=== PATIENT | male | born 1940 | race Caucasian/White ===

== ENCOUNTER 2023-12-23 13:05 | Inpatient (IN) | payer MEDICARE, SELFPAY ==
[2023-12-23] VITALS (26 sets, daily range): BP systolic 130–167; BP diastolic 65–99; PULSE 62–80; RESP 13–20; TEMP 36.3–37.1; O2SAT 96–100; BMI 25.9; BMI 27.2
--- NOTE | 2023-12-23 13:06 | CT_ITS ---
STUDY: CT HEAD STROKE PROTOCOL W/O CONTRAST INJECTION REASON FOR EXAM: Male, 83 years old. Neuro deficit, acute, stroke suspected RADIATION DOSAGE (If Supplied By Facility): CTDIvol = ( 44.99 ) mGy, DLP = ( 897.35 ) mGycm TECHNIQUE: Transaxial CT imaging of the brain was performed without administration of intravenous contrast material. Individualized dose optimization techniques were used for this CT. COMPARISON: No relevant priors. FINDINGS: Normal soft tissue structures. Normal calvarium. There is mild cerebral atrophy with widening of the extra-axial spaces and ventricular dilatation. There are areas of decreased attenuation within the white matter tracts of the supratentorial brain, consistent with microvascular disease changes. Findings suggestive for an old lacunar infarct in the right thalamus. Normal brainstem. There is evidence of encephalomalacia in the posterior left cerebellar hemisphere. There is also evidence of a encephalomalacia in the posterior right parietal occipital lobes. There is no intracranial hemorrhage. There are no findings of an acute ischemic infarction. Atherosclerotic calcific plaques of the vertebral arteries and cavernous portions of the internal carotid arteries laterally. Normal visualized paranasal sinuses. ASPECT score: 10 CT/STROKE Brain/Head without Cont IMPRESSION: Chronic involutional changes of the brain. 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 N.B. : The above Results were Read Back by Anjel Sands MD to Gerhard Dao and understanding confirmed on 12/23/2023 13:21:48 (ET). Electronically Signed: Anjel Sands MD at 13:22 EST ,
--- NOTE | 2023-12-23 13:06 | RAD_ITS ---
STUDY: X-RAY CHEST REASON FOR EXAM: Male, 83 years old. Neuro deficit, acute, stroke suspected TECHNIQUE: Single AP portable view of the chest. COMPARISON: None. FINDINGS: EKG electrodes are seen. There is evidence of gynecomastia. Small calcified granuloma in the left lower lobe. There is no demonstrated pleural abnormality. Normal size heart. Normal mediastinum and jadyn. Normal visualized pulmonary arteries. There is atherosclerotic tortuosity of the aortic arch and descending thoracic aorta. There are diffuse degenerative changes of the visualized thoracic spine. Mild levoscoliosis. There is degenerative osteoarthritis of the bilateral shoulders. There is no demonstrated abnormality of the visualized soft tissue structures of the upper abdomen. RAD/Chest 1 View IMPRESSION: No acute abnormality is seen. Electronically Signed: Anjel Sands MD at 13:56 EST ,
--- NOTE | 2023-12-23 13:07 | CT_ITS ---
We are attempting to reach an attending provider to discuss findings. An addendum with communication details will be sent when the communication is complete. STUDY: CTA HEAD AND NECK WITH CONTRAST REASON FOR EXAM: Male, 83 years old. Neuro deficit, acute, stroke suspected RADIATION DOSAGE (If Supplied By Facility): CTDIvol = ( 25.73 ) mGy, DLP = ( 736.46 ) mGycm TECHNIQUE: CT angiography was performed with a multi-detector CT scanner. Data acquisition was obtained from the skull base through the vertex following intravenous administration of IV 100mL [id number]-[id number]. MIP images were reconstructed from the axial data set. Post-processing of the angiographic images was performed, with multiplanar reformation and 3D reconstruction. Individualized dose optimization techniques were used for this CT. COMPARISON: No relevant priors. FINDINGS: Normal bilateral petrous carotid arteries. There is calcified plaque formation of the right cavernous carotid artery, without a cross-sectional luminal stenosis. There is calcified plaque formation of the left cavernous carotid artery, with a mild stenosis (less than 50%). Normal right A1 segments of the anterior cerebral artery. Normal left A1 segments of the anterior cerebral artery. Normal intact anterior communicating artery (ACOM). Normal bilateral A2 segments of the anterior cerebral arteries. Normal right M1 and M2 segments of the middle cerebral arteries, with a normal M1 bifurcation. Normal left M1 and M2 segments of the middle cerebral arteries, with a normal M1 bifurcation. Normal right posterior communicating artery (PCOM). Normal left posterior communicating artery (PCOM). Normal bilateral vertebral arteries. Normal basilar artery with a normal basilar bifurcation. The visualized bilateral superior cerebellar (SCA) arteries are normal. Normal bilateral P1, P2 and visualized P3 segments of the posterior cerebral arteries. There is no demonstrated aneurysm of the [id number]. AORTIC ARCH: There is atherosclerotic calcific plaque formation of the aortic arch and great vessels arising from the aortic arch, without a hemodynamically significant stenosis. There is a normal origin of the brachiocephalic, left common carotid, and left subclavian arteries. Mild heterogeneity of the right lobe of the thyroid. RIGHT CAROTID ARTERIES: Normal right common carotid artery (CCA). Normal right common carotid bulb. There is severe atherosclerotic plaque formation of the origin of the right internal carotid artery with a near complete occlusion. Normal visualized cervical portion of the right internal carotid artery. Normal origin of the right external carotid artery (ECA). LEFT CAROTID ARTERIES: Normal left common carotid artery (CCA). Normal left common carotid bulb. There is mild atherosclerotic plaque formation of the origin of the left internal carotid artery with less than 50% cross sectional diameter stenosis. Normal visualized cervical portion of the left internal carotid artery. Normal origin of the left external carotid artery (ECA). VERTEBRAL ARTERIES: Normal bilateral vertebral arteries. CT/STROKE CTA Head AND Neck W/Con IMPRESSION: High-grade stenosis at the origin of the right internal carotid artery. Electronically Signed: Anjel Sands MD at 13:39 EST ,
--- NOTE | 2023-12-23 13:10 | ED.VIS.STROK ---
HPI History of Present Illness Chief Complaint: Neuro S/Sx Detail of Chief Complaint: Abrupt onset of left-sided paralysis with onset 1220 Informant: patient Onset/Context/Timing Onset: Today and Hours Context: Sudden Onset Timing: Continuous Quality and Location: Positive for Left Facial Droop, Left Arm Parasthesia, Left Leg Parasthesia, Left Arm Weakness, Left Leg Weakness and Expressive Aphasia Maximum Severity: Severe Worsened by: Not applicable Relieved by: Nothing Associated Symptoms Associated Symptoms: Negative for Headache, Nausea, Vomiting or Chest Pain Narrative Narrative: Patient is an 83-year-old male with history of hypertension, hypothyroidism, hypercholesterolemia and 1 or 2 prior strokes. There are no old images for comparison. Patient arrived by ambulance was met in the ambulance bay. He has no use of his left upper extremity minimal use of his left lower extremity. His altered sensation left side. There is slight facial droop. He has trouble with fluency of speech. He believed it was November. Prior similar symptoms: Yes Recent Illness/Hospitalization: No PFSH PFSH Home Medications acetaminophen 500 mg capsule 500 mg PO BID 12/23/23 [History Last Taken Unknown] aspirin 81 mg chewable tablet 1 tab PO DAILY 12/23/23 [History Last Taken Unknown] atorvastatin 80 mg tablet 80 mg PO QHS 12/23/23 [History Last Taken Unknown] citalopram 40 mg tablet (Celexa) 20 mg PO DAILY 12/23/23 [History Last Taken Unknown] clopidogrel 75 mg tablet 75 mg PO DAILY 12/23/23 [History Last Taken Unknown] docusate sodium 100 mg capsule (Colace) 100 mg PO BID 12/23/23 [History Last Taken Unknown] levothyroxine 50 mcg tablet 50 mcg PO DAILY 12/23/23 [History Last Taken Unknown] losartan 50 mg tablet 50 mg PO DAILY 12/23/23 [History Last Taken Unknown] multivitamin 1 tab PO DAILY 12/23/23 [History Last Taken Unknown] nifedipine 60 mg tablet,extended release 24 hr 60 mg PO DAILY 12/23/23 [History Last Taken Unknown] vit C 250 mg-vit E 90 mg-zinc 40 mg-copper 1 [id number] capsule (PreserVision AREDS-2) 1 tab PO BID 12/23/23 [History Last Taken Unknown] Social History (Updated 12/23/23 @ 13:[address] Gerhard Dao MD) household members: family Smoking Status: Never smoker ROS ROS ED Eyes Eyes: Denies blurry vision, change in vision or diplopia ENT ENT ED: Denies ear pain, rhinorrhea or sore throat Cardiovascular Cardiovascular: Denies chest pain or palpitations Respiratory/Chest Respiratory/Chest: Denies cough, dyspnea or dyspnea on exertion Musculoskeletal Musculoskeletal: Denies arthralgias, back pain, myalgias or neck pain Neurologic Neurologic: Reports paresthesias and weakness EXAM Physical Exam Const Vital Signs: 12/23/23 13:06 12/23/23 13:20 12/23/23 13:20 Temperature 97.6 F L Temperature Source Temporal Pulse Rate 78 73 Respiratory Rate 16 16 Blood Pressure 133/73 H 155/72 H Blood Pressure Mean 93 99 Blood Pressure Source Blood Pressure Position Blood Pressure Location Pulse Ox 98 98 Oxygen Delivery Method Room Air Room Air Room Air 12/23/23 13:24 12/23/23 13:29 12/23/23 13:33 Temperature 97.8 F 97.8 F Temperature Source Temporal Temporal Pulse Rate 77 71 Respiratory Rate 16 18 Blood Pressure 155/72 H 155/72 H 139/69 H Blood Pressure Mean 99 92 Blood Pressure Source Monitor Monitor Blood Pressure Position Semi-Fowlers Supine Blood Pressure Location Left Arm Left Arm Pulse Ox 97 99 Oxygen Delivery Method Room Air Room Air 12/23/23 13:48 12/23/23 13:59 12/23/23 14:03 Temperature 97.8 F 97.8 F 98.4 F Temperature Source Temporal Temporal Temporal Pulse Rate 69 64 70 Respiratory Rate 16 14 16 Blood Pressure 149/81 H 149/81 H 160/76 H Blood Pressure Mean 103 103 104 Blood Pressure Source Monitor Monitor Monitor Blood Pressure Position Semi-Fowlers Semi-Fowlers Semi-Fowlers Blood Pressure Location Left Arm Left Arm Left Arm Pulse Ox 99 98 97 Oxygen Delivery Method Room Air Room Air Room Air Positive well nourished and well developed General Appearance ED: well developed HEENT Reports moist mucous membranes atraumatic Eyes PERRL and EOMs intact bilaterally General Eye ED: Negative for pale conjunctiva or scleral icterus Neck no lymphadenopathy, supple and no JVD Chest Wall inspection of chest normal and palpation of chest normal Resp normal respiratory effort and clear to auscultation bilaterally Cardio no murmurs Rate: regular rate Rhythm: regular rhythm Heart Sounds: S1 normal and S2 normal GI normal to inspection, nondistended, normoactive bowel sounds, soft to palpation, non-tender, non-distended and no masses Back/Spine no CVA tenderness Extremity normal to inspection Neuro oriented x3, No CN's II-XII intact bilaterally and No no sensory deficits noted [place] Coma Scale: document GCS findings Spontaneous Obeys Commands Oriented 15 Sensorium / Orientation: alert Psych mental status grossly normal Skin no wounds Lesions: no lesions Rashes: no rashes NIHSS NIHSS Initial: 1a Level of Consciousness: 0 1b LOC Questions (Score 2 if aphasic/stupor): 1 1c LOC Commands (Only score 1st attempt): 0 2 Best Gaze (If aphasic, use reflexive mvmts.): 0 3 Visual: 0 4 Facial Palsy: 1 5 Motor Arm Right (UN = amputation/fusion): 0 5 Motor Arm Left: 4 6 Motor Leg Right: 0 6 Motor Leg Left: 2 7 Limb ataxia (Only + if out of proportion): 0 8 Sensory (Aphasia/stupor=0 or 1, coma=2): 1 9 Best Language: 1 10 Dysarthria (mute, coma=2, intubated=UN): 1 11 Extinction and Inattention (only scored if +): 0 Total Score: 11 MDM MDM MDM Narrative Medical decision making narrative: Patient is a thrombolytic candidate. Patient was examined in the EMS bay and radiology suite. Spoke with pharmacist regarding TNK administration. He was informed of weight since was not in the computer. Patient and brother were informed of his findings. He was informed there is medicine that could potentially dissolve the clot that is causing his deficit. He asked to be given it immediately. He was explained risk benefits. History & Record Review Discussion w/independent historian: EMS personnel, Patient and Family Lab Data Attestation: I reviewed the patient's lab results. Lab results narrative: White count is slightly elevated which is probably a stress response due to his stroke. Coags are normal. Labs: Laboratory Results - last 24 hr 12/23/23 13:10 WBC 11.8 H RBC 4.09 L Hgb 12.3 L Hct 38.6 L MCV 94.4 H MCH 30.1 MCHC 31.9 L RDW Std Deviation 42.7 RDW Coeff of Velia 12.3 Plt Count 195 MPV 8.2 Immature Gran % (Auto) 0.400 Neut % (Auto) 64.6 Lymph % (Auto) 19.6 Gulf % (Auto) 6.5 Eos % (Auto) 8.4 H Baso % (Auto) 0.5 Absolute Neuts (auto) 7.6 Absolute Lymphs (auto) 2.30 Nucleated RBC % 0 PT 13.0 INR 1.0 APTT 21.6 L Sodium 137 Potassium 4.6 Chloride 110 H Carbon Dioxide 26.0 Anion Gap 1 L BUN 19 H Creatinine 1.57 H Estim Creat Clear Calc 39.30 Est GFR (MDRD) Af Amer 55 L Est GFR (MDRD) Non-Af 45 L BUN/Creatinine Ratio 12.1 Glucose 159 H Calcium 9.4 Troponin I High Sens 13 Radiography Chest X-Ray - ED: 1 View and Read by ED Physician (Independently reviewed interpreted by me as negative for any acute process. Patient has minor normal chronic lung parenchymal changes. Cardiac silhouette size normal. Perihilar region normal. Osseous structures are normal.) Diagnostic Testing: Clinical Impression(s) from Imaging Studies Brain CT 12/23/23 13:06 IMPRESSION: Chronic involutional changes of the brain. 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 N.B. : The above Results were Read Back by Anjel Sands MD to [facility] and understanding confirmed on 12/23/2023 13:21:48 (ET). Electronically Signed: Anjel Sands MD at 13:22 EST , ADDENDUM: 12/23/23 1329 IMPRESSION: Chronic involutional changes of the brain. 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 N.B. : The above Results were Read Back by Anjel Sands MD to [facility] and understanding confirmed on 12/23/2023 13:21:48 (ET). Electronically Signed: Anjel Sands MD at 13:22 EST , Chest X-Ray 12/23/23 13:06 IMPRESSION: No acute abnormality is seen. Electronically Signed: Anjel Sands MD at 13:56 EST , Head/Neck CTA 12/23/23 13:07 IMPRESSION: High-grade stenosis at the origin of the right internal carotid artery. Electronically Signed: Anjel Sands MD at 13:39 EST , ADDENDUM: 12/23/23 1347 IMPRESSION: High-grade stenosis at the origin of the right internal carotid artery. N.B. : The above Results were Read Back by Anjel Sands MD to Dr Feliberto MD, and understanding confirmed on 12/23/2023 13:40:07 (ET). Electronically Signed: Anjel Sands MD at 13:39 EST , I was informed at 1337 the patient has a significant stenosis right internal carotid artery. Will relay this information to the hospitalist to consult Dr. Zuhair Huynh, vascular surgeon. EKG Initial EKG: Attestation: I personally reviewed and interpreted this EKG as follows: Interpretation: Sinus Rhythm (Rate is 66. There is premature atrial complexes noted. DC interval 248 ms. QRS duration 94 ms. QT duration 422 ms. Tippo to left. There is evidence of low voltage. There is also artifact which the computer is reading as nonseptic changes.) Prior: No Prior Management Discussion w/another healthcare provider: Hospitalist, Therapeutic Mentor and Radiologist (Spoke with Dr. Cutler at 1317. He informed there are 2 prior strokes. There is no evidence of an acute stroke or hemorrhage. Will discuss with patient administration of TNK.) Stroke Documentation Questions Stroke Team Activated: Yes Reviewed Inclusion/Exclusion criteria: Yes No contraindications from thrombolytic administration: Yes Risks, Benefits, Alternatives Discussed: Yes Critical Care Time Critical Care Time: Yes Critical care time (excluding procedures): 30-74 minutes (31), Including time spent: (History, physical, documentation, discussion with pharmacist regarding TNK dose), Discussing w/Patient &/or Family/[employer] (Regarding imaging results and treatment with TNK explaining risk benefits and potential complications), Discussing w/Consultants (Pharmacist, radiologist and hospitalist) and Arranging Admission or Transfer Discharge Plan Dx/Rx/DC Orders Clinical Impression: Acute stroke due to ischemia, Hypercholesterolemia, Hypothyroidism, Hypertension Disposition Disposition: Acute Care Hospital [facility]
--- NOTE | 2023-12-23 13:10 | ED.RN ---
NO OLD EKG
--- NOTE | 2023-12-23 13:11 | CM.ED ---
Social Work Patient's brother arrived to the ED. Patient in cat scan. SW provided support to brother and answered questions as able. Brother placed in patient's room. SW to follow for needs. [employer] MACHINE, [employer] INSPECTOR AND PATCHER
[2023-12-23 13:22] LABS: Absolute Neutrophil Count 7.6 X10^3/uL (2.0-7.7); Basophil# 0.06 X10^3/uL; Basophil% 0.5 % (0-1); Eosinophil# 0.99 X10^3/uL; Eosinophils% 8.4 % (0-5); Hematocrit 38.6 % (40-54); Hemoglobin 12.3 g/dL (13.0-16.5); Lymphocyte % 19.6 % (19-41); Mean Corp Hgb Conc 31.9 g/dL (32-36); Mean Corpuscular Hgb 30.1 pg (27.0-32.0); Mean Corpuscular Volume 94.4 fL (80-94); Mean Platelet Vol. 8.2 fl (6.2-12.0); Monocyte# 0.76 X10^3/uL; Monocyte% 6.5 % (0-10); NRBC Flagged by Analyzer 0 % (0-5); Neutrophil % 64.6 % (47-70); Platelet Count 195 K/mm3 (150-450); RBC Distribution Width CV 12.3 % (11.6-14.6); RBC Distribution Width SD 42.7 fl (35.1-43.9); Red Blood Count 4.09 M/mm3 (4.6-6.2); White Blood Count 11.8 K/mm3 (4.4-11.0)
[2023-12-23] MEDS: 0.9% Saline Lock 10 ML Syringe IV ×2 (13:28→13:31)
[2023-12-23] MEDS: TENECTEPLASE 3038.40000000000009 MG IV (13:29)
[2023-12-23 13:31] LABS: Partial Thromboplast Time 21.6 Seconds (24.1-36.2)
[2023-12-23] MEDS: 0.9% Normal Saline (1000mL) 1,000 ML 100 ML IV ×2 (13:34→22:59)
[2023-12-23 13:40] LABS: Anion Gap 1 (5-15); BUN 19 mg/dL (7-18); BUN/Creat Ratio 12.1 RATIO (10-20); Calcium,Total 9.4 mg/dL (8.5-10.1); Chloride 110 mmol/L (98-107); Creatinine, Serum 1.57 mg/dL (0.70-1.30); EST Glomerular Filtration Rate 45 mL/min (>60); Est Glom Filt Rate - Afr Amer 55 mL/min (>60); Glucose 159 mg/dL (74-106); Potassium 4.6 mmol/L (3.5-5.1); Sodium Level 137 mmol/L (136-145); Troponin-I HS 13 pg/mL (3.0-78.0)
--- NOTE | 2023-12-23 13:44 | ED.RN ---
cath cancelled by [facility] neuro
--- NOTE | 2023-12-23 14:11 | PCM.HP.STD ---
HPI - General General Date of Admission: 12/23/23 Date of Service: 12/23/23 Chief Complaint: Left sided weakness HPI Narrative MARIO PROCTOR, is an 83-year-old male history of hypertension, hypothyroidism, previous CVA x2 who presented to [facility] ED 12/23/2023 with left facial droop, left upper extremity paralysis and difficulty w/ fluency and left lower extremity weakness that started at 1220. Patient arrived to hospital a stroke alert and had NIH of 11 and was deemed a candidate for TNK, CT head obtained with no bleed and TNK administered, also had CTA which showed right internal carotid stenosis and no other abnormalities. Hospitalist contacted for admission to ICU for acute CVA status post TNK. Patient evaluated bedside with brother present, reportedly has a history of strokes and after his last stroke 1 year ago has had problems with his vision and no longer drives but denied any other chronic deficits. Today had been in his usual health until he suddenly could not move his left arm and had the left lower extremity weakness and some difficulty with fluency, symptoms are rapidly improving after TNK administration and while he still has some weakness and movement difficulty in left hand but is improving. Denies any headache or changes in vision acutely at this time but does report the left back part of his neck feels like he strained it slightly. ROS otherwise negative. [facility] Home Medications acetaminophen 500 mg capsule 500 mg PO BID 12/23/23 [History Last Taken Unknown] aspirin 81 mg chewable tablet 1 tab PO DAILY 12/23/23 [History Last Taken Unknown] atorvastatin 80 mg tablet 80 mg PO QHS 12/23/23 [History Last Taken Unknown] citalopram 40 mg tablet (Celexa) 20 mg PO DAILY 12/23/23 [History Last Taken Unknown] clopidogrel 75 mg tablet 75 mg PO DAILY 12/23/23 [History Last Taken Unknown] docusate sodium 100 mg capsule (Colace) 100 mg PO BID 12/23/23 [History Last Taken Unknown] levothyroxine 50 mcg tablet 50 mcg PO DAILY 12/23/23 [History Last Taken Unknown] losartan 50 mg tablet 50 mg PO DAILY 12/23/23 [History Last Taken Unknown] multivitamin 1 tab PO DAILY 12/23/23 [History Last Taken Unknown] nifedipine 60 mg tablet,extended release 24 hr 60 mg PO DAILY 12/23/23 [History Last Taken Unknown] vit C 250 mg-vit E 90 mg-zinc 40 mg-copper 1 [id number] capsule (PreserVision AREDS-2) 1 tab PO BID 12/23/23 [History Last Taken Unknown] Allergy/AdvReac Type Severity Reaction Status Date / Time No Known Allergies Allergy Verified 12/23/23 14:24 Social History (Updated 12/23/23 @ 13:[address] Gerhard Dao MD) household members: family Smoking Status: Never smoker ROS ROS Narrative General: Denies fever/chills HENT: Denies headache, feels like the left back part of his head you most strained a muscle, denies stuffy nose, denies sore throat EYES: Denies changes in vision Resp: Denies cough, denies shortness of breath Cardiac: Denies chest pain GI: Denies abdominal pain, denies changes in bowel, denies nausea/vomiting : Denies changes in urination Extremity: Denies swelling MSK: Weakness as below Neuro: Denies any numbness/tingling, still with left arm weakness compared to right and some left lower extremity weakness Heme: Denies any bleeding or bruising Skin: Denies rashes Psychiatric: No complaints voiced Vital Signs Vital Signs Vital Signs: 12/23/23 13:06 12/23/23 13:20 12/23/23 13:20 Temperature 97.6 F L Temperature Source Temporal Pulse Rate 78 73 Respiratory Rate 16 16 Blood Pressure 133/73 H 155/72 H Blood Pressure Mean 93 99 Blood Pressure Source Blood Pressure Position Blood Pressure Location Pulse Ox 98 98 Oxygen Delivery Method Room Air Room Air Room Air 12/23/23 13:24 12/23/23 13:29 12/23/23 13:33 Temperature 97.8 F 97.8 F Temperature Source Temporal Temporal Pulse Rate 77 71 Respiratory Rate 16 18 Blood Pressure 155/72 H 155/72 H 139/69 H Blood Pressure Mean 99 92 Blood Pressure Source Monitor Monitor Blood Pressure Position Semi-Fowlers Supine Blood Pressure Location Left Arm Left Arm Pulse Ox 97 99 Oxygen Delivery Method Room Air Room Air 12/23/23 13:48 12/23/23 13:59 12/23/23 14:03 Temperature 97.8 F 97.8 F 98.4 F Temperature Source Temporal Temporal Temporal Pulse Rate 69 64 70 Respiratory Rate 16 14 16 Blood Pressure 149/81 H 149/81 H 160/76 H Blood Pressure Mean 103 103 104 Blood Pressure Source Monitor Monitor Monitor Blood Pressure Position Semi-Fowlers Semi-Fowlers Semi-Fowlers Blood Pressure Location Left Arm Left Arm Left Arm Pulse Ox 99 98 97 Oxygen Delivery Method Room Air Room Air Room Air Weight Weight: 84.5 kg Body Mass Index (BMI) 25.9 Physical Exam Narrative General: Alert, oriented, no apparent distress HEENT: Atraumatic, normocephalic Eyes: Anicteric, normal conjunctiva, extraocular movements intact, pupils equal Neck: Supple Respiratory: Clear to auscultation bilaterally, normal respiratory effort Cardiovascular: Regular rate and rhythm GI: Soft, nontender, nondistended Extremities: No edema Musculoskeletal: Strength 5 out of 5 in right upper extremity, 4 out of 5 left upper extremity with glove turner and former automatic strength and push and pull but difficulty raising arm, 5 out of 5 right lower extremity, 5 - out of 5 left lower extremity Neuro: Sensation the same throughout, cranial nerves II through XII intact aside from some decrease in left shoulder shrug, [id number] without significant difficulty on right side and limited on the left due to difficulty lifting hand and air Skin: No rashes appreciated Psych: Cooperative Results Lab / Micro Data 12/23/23 13:10 12/23/23 13:10 Labs: Laboratory Results - last 24 hr 12/23/23 13:10: WBC 11.8 H, RBC 4.09 L, Hgb 12.3 L, Hct 38.6 L, MCV 94.4 H, MCH 30.1, MCHC 31.9 L, RDW Std Deviation 42.7, RDW Coeff of Velia 12.3, Plt Count 195, MPV 8.2, Immature Gran % (Auto) 0.400, Neut % (Auto) 64.6, Lymph % (Auto) 19.6, Gosper % (Auto) 6.5, Eos % (Auto) 8.4 H, Baso % (Auto) 0.5, Absolute Neuts (auto) 7.6, Absolute Lymphs (auto) 2.30, Nucleated RBC % 0, PT 13.0, INR 1.0, APTT 21.6 L, Sodium 137, Potassium 4.6, Chloride 110 H, Carbon Dioxide 26.0, Anion Gap 1 L, BUN 19 H, Creatinine 1.57 H, Estim Creat Clear Calc 39.30, Est GFR (MDRD) Af Amer 55 L, Est GFR (MDRD) Non-Af 45 L, BUN/Creatinine Ratio 12.1, Glucose 159 H, Calcium 9.4, Troponin I High Sens 13 Imaging Radiology Impression Brain CT 12/23/23 13:06 IMPRESSION: Chronic involutional changes of the brain. 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 N.B. : The above Results were Read Back by Anjel Sands MD to Gerhard Dao and understanding confirmed on 12/23/2023 13:21:48 (ET). Electronically Signed: Anjel Sands MD at 13:22 EST , ADDENDUM: 12/23/23 1329 IMPRESSION: Chronic involutional changes of the brain. 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 N.B. : The above Results were Read Back by Anjel Sands MD to Gerhard Dao and understanding confirmed on 12/23/2023 13:21:48 (ET). Electronically Signed: Anjel Sands MD at 13:22 EST , Chest X-Ray 12/23/23 13:06 IMPRESSION: No acute abnormality is seen. Electronically Signed: Anjel Sands MD at 13:56 EST , Head/Neck CTA 12/23/23 13:07 IMPRESSION: High-grade stenosis at the origin of the right internal carotid artery. Electronically Signed: Anjel Sands MD at 13:39 EST , ADDENDUM: 12/23/23 1347 IMPRESSION: High-grade stenosis at the origin of the right internal carotid artery. N.B. : The above Results were Read Back by Anjel Sands MD to Dr Feliberto MD, and understanding confirmed on 12/23/2023 13:40:07 (ET). Electronically Signed: Anjel Sands MD at 13:39 EST , Assessment & Plan Assessment/Plan (1) Acute stroke due to ischemia: (2) Hypertension: (3) Hypothyroidism: PLAN: Plan #Acute CVA s/p TNK -Admit to ICU w/ strict blood pressure parameters -Blood pressure must be maintained at or below 180/105 mmHg during the first 24 hours, Labetolol prn for BP goals, nicardipine if unable to manage w/ labetolol -VS and neurochecks per protocol, Vital signs and neurologic status should be checked every 15 minutes for two hours, then every 30 minutes for six hours, then every 60 minutes until 24 hours from the start of thrombolysis -Rivera catheter placed, bed rest for 24 hours -C/s manager transition -C/s Neurology -MRI ordered, will also need repeat CT at 24 hours prior to transfer to the floor and prior to any antithrombotic or antiplatelet agents -Echo ordered, PT/OT/speech -Atorvastatin -Lipid panel in AM #Hx CVA x2 -Most recently 1 year ago -As above #Right ICA stenosis -Seen on CTA -Will c/s vascular #HTN -labetolol and nicardipine prn for BP parameters s/p TNK #Hypothyroidism -Continue Synthroid #DVT ppx: SCDs Kiana Georges MD Time spent in the patient's overall evaluation,decision-making process, review of diagnostic data, adjustment of management, discussion with other providers, nursing nursing and ancillary staff involved in patient's care documentation, 65 minutes Charges/Coding Visit Charges Inpatient E&M: 36041 Init Hosp L2
--- NOTE | 2023-12-23 14:22 | ED.RN ---
attempted report to icu they state they will call back
--- NOTE | 2023-12-23 14:31 | ECHOCS_ITS ---
Reason For Study: CVA Procedure This was a 2D Doppler, Color Flow transthoracic echocardiogram. The study was technically difficult. Patient scanned supine due to left sided CVA. Exam performed portable in ICU/CCU. Left Ventricle Normal size and thickness. Unable to assess diastolic function based on available data. The left ventricular ejection fraction is 60 %. Right Ventricle The right ventricle is not well visualized. Atria The left atrium is not well visualized. The right atrium is not well visualized. Bubble contrast study negative for right to left interatrial shunt. Mitral Valve Mitral valve not well visualized. Tricuspid Valve The tricuspid valve is not well visualized. Aortic Valve The aortic valve is not well visualized. Pulmonic Valve The pulmonic valve is not well visualized. Great Vessels The aortic root is not well visualized. Pericardium/Pleural No pericardial effusion. Medication Diluted definity 2ml given slow IV push to enhance endocardial definition. MMode/2D Measurements & Calculations LVOT diam: 2.2 cm Ao root diam: 4.0 cm LAV(MOD-sp4): 20.9 ml LVOT area: 3.9 cm2 LA dimension(2D): 3.0 cm LA A4 area: 11.4 cm2 RA A4 area: 10.8 cm2 Doppler Measurements & Calculations MV E max yonatan: 60.9 cm/sec Lat Peak E' Yonatan: 4.0 cm/sec Med Peak E' Yonatan: 5.6 cm/sec MV A max yonatan: 105.3 cm/sec E/E' lat: 15.2 E/E' med: 10.8 MV E/A: 0.58 Ao V2 max: 183.9 cm/sec LV V1 max: 105.0 cm/sec SV(LVOT): 90.1 ml Ao max P.6 mmHg LV V1 max P.4 mmHg Ao V2 mean: 126.9 cm/sec LV V1 mean P.3 mmHg Ao mean P.1 mmHg LV V1 mean: 71.5 cm/sec Ao V2 VTI: 40.0 cm LV V1 VTI: 23.3 cm AV (velocity ratio): 0.58 TORI(I,D): 2.3 cm2 TORI(V,D): 2.2 cm2 PA V2 max: 95.0 cm/sec ECHO/Echo Complete W/ Contrast Interpretation Summary LVEF 60%. Bubble study uninterpretable. Technically difficult study with suboptimal images. Ordering Physician: Kiana Georges Referring Physician: Dani Fallon Performed By: Carolann Maki RDCS
--- NOTE | 2023-12-23 14:57 | CHAPLAIN ---
Type of Pastoral Visit ___ Initial Visit ___ Follow-up Visit ___ On-call Visit ___ General Patient Visit ___ Spiritual Assessment ___ Family Conference ___ Bereavement _x__ Rapid Response ___ Code Blue ___ Other (describe below) Pastoral Care Referral From ___ Patient ___ Family ___ Nurse ___ Physician ___ Fabrication Machine Operator ___ Crane Assembler _x__ Other (describe below) Sacrament/Intervention ___ Active listening ___ Anointing ___ Adventism ___ Bereavement ___ Communion ___ Betty exploration ___ ___ Life review ___ Prayer ___ Reconciliation ___ Sacrament of Sick _x__ Supportive presence ___ Wedding ___ Other (describe below) Pastoral Comments responded to stroke alert in ED by squad; met with family member that arrived shortly after squad car; offer of support given; SW is on the scene and assisting at this time
[2023-12-23] MEDS: Acetaminophen 325 MG Tablet 650 MG PO (20:23)
[2023-12-23] MEDS: Atorvastatin Calcium 80 MG Tablet PO (20:23)
[2023-12-24] VITALS (22 sets, daily range): BP systolic 119–165; BP diastolic 54–84; PULSE 63–82; RESP 13–20; TEMP 36.3–36.6; O2SAT 94–99; BMI 26.9
[2023-12-24 04:12] LABS: Absolute Lymphocyte Count 1.84 X10^3/uL (0.83-4.51); Absolute Neutrophil Count 7.4 X10^3/uL (2.0-7.7); Basophil# 0.06 X10^3/uL; Basophil% 0.5 % (0-1); Eosinophil# 1.07 X10^3/uL; Eosinophils% 9.4 % (0-5); Hematocrit 35.6 % (40-54); Hemoglobin 11.6 g/dL (13.0-16.5); Lymphocyte # 1.84 X10^3/ul (0.83-4.51); Lymphocyte % 16.2 % (19-41); Mean Corp Hgb Conc 32.6 g/dL (32-36); Mean Corpuscular Hgb 30.1 pg (27.0-32.0); Mean Corpuscular Volume 92.2 fL (80-94); Mean Platelet Vol. 8.1 fl (6.2-12.0); Monocyte# 0.97 X10^3/uL; Monocyte% 8.6 % (0-10); NRBC Flagged by Analyzer 0 % (0-5); Neutrophil # 7.35 X10^3/uL (2.7-7.7); Neutrophil % 64.9 % (47-70); Platelet Count 178 K/mm3 (150-450); RBC Distribution Width CV 12.3 % (11.6-14.6); RBC Distribution Width SD 41.1 fl (35.1-43.9); Red Blood Count 3.86 M/mm3 (4.6-6.2); White Blood Count 11.3 K/mm3 (4.4-11.0)
[2023-12-24 04:37] LABS: Anion Gap 1 (5-15); BUN 16 mg/dL (7-18); BUN/Creat Ratio 14.2 RATIO (10-20); Calcium,Total 8.9 mg/dL (8.5-10.1); Chloride 111 mmol/L (98-107); Cholesterol 134 mg/dL (200); Creatinine, Serum 1.13 mg/dL (0.70-1.30); EST Glomerular Filtration Rate 66 mL/min (>60); Est Glom Filt Rate - Afr Amer 80 mL/min (>60); Estimated Creatinine Clearance 57.38 ml/min; Glucose 127 mg/dL (74-106); High Density Lipoprotein 36 mg/dL; Potassium 4.1 mmol/L (3.5-5.1); Sodium Level 137 mmol/L (136-145); Thyroid Stim Hormone (TSH) 5.41 uIU/mL (0.358-3.74); Triglycerides 197 mg/dL; Very Low Density Lipoprotein 39 mg/dL (5-40)
--- NOTE | 2023-12-24 06:13 | CON.PCM.CC_ITS ---
Assessment & Plan Assessment/Plan (1) Acute stroke due to ischemia: PLAN: Plan RECOMMENDATIONS: 1. Continue routine monitoring post tenecteplase protocol. 2. Follow-up head imaging is scheduled for this afternoon. 3. Echocardiogram is pending. 4. Maintain blood pressures less than 180/105 mmHg. 5. Vascular surgery consultation is pending. 6. PT/OT evaluations once repeat head imaging is completed. IMPRESSIONS: 1. Acute CVA status post tenecteplase The patient initially presented to the hospital with left-sided deficits. Initial CT imaging of the head was unremarkable, with the exception of high- grade stenosis of the right internal carotid artery noted. The patient ultimately received tenecteplase, but continues to have a flaccid left upper extremity. Plan for follow-up head imaging this afternoon. Continue routine monitoring per tenecteplase protocol. Echocardiogram and vascular surgery consultation are pending. 2. History of CVA/hypertension/hypothyroidism Complicates care, management, recovery and prognosis. Continue home medications as indicated. PT/OT evaluations once medically stable. This note was generated with [employer] dictation software. It may contain incorrect words, spelling, and punctuation that were not noted in checking the note before signing. HPI Consult Data Date of Consult: 12/24/23 HPI Narrative Reason for Consultation: CVA status post tenecteplase HPI Narrative: The patient is an 83-year-old male, with a history as outlined below, who presented to the emergency department on December 23 with left-sided facial droop and left sided paralysis. The patient does have a prior stroke history along with a history of hypertension and hypothyroidism. On presentation to the emergency department, the patient was documented to be afebrile hemodynamically stable. He was maintaining appropriate oxygen saturations on room air. Initial laboratory evaluation revealed a white blood cell count of 12,000. Chemistry profile was notable for a creatinine of 1.57. CT head revealed chronic involutional changes of the brain along with a possible old lacunar infarct in the right thalamus. CTA head and neck revealed high- grade stenosis at the origin of the right internal carotid artery. The patient was seen in consultation by neurology and felt to be a candidate for tenecteplas e, which was ultimately administered. He was then transferred to the medical intensive care unit for further management. [facility] Home Medications acetaminophen 500 mg capsule 500 mg PO BID 12/23/23 [History Last Taken Unknown] aspirin 81 mg chewable tablet 1 tab PO DAILY 12/23/23 [History Last Taken Unknown] atorvastatin 80 mg tablet 80 mg PO QHS 12/23/23 [History Last Taken Unknown] citalopram 40 mg tablet (Celexa) 20 mg PO DAILY 12/23/23 [History Last Taken Unknown] clopidogrel 75 mg tablet 75 mg PO DAILY 12/23/23 [History Last Taken Unknown] docusate sodium 100 mg capsule (Colace) 100 mg PO BID 12/23/23 [History Last Taken Unknown] levothyroxine 50 mcg tablet 50 mcg PO DAILY 12/23/23 [History Last Taken Unknown] losartan 50 mg tablet 50 mg PO DAILY 12/23/23 [History Last Taken Unknown] multivitamin 1 tab PO DAILY 12/23/23 [History Last Taken Unknown] nifedipine 60 mg tablet,extended release 24 hr 60 mg PO DAILY 12/23/23 [History Last Taken Unknown] vit C 250 mg-vit E 90 mg-zinc 40 mg-copper 1 [id number] capsule (PreserVision AREDS-2) 1 tab PO BID 12/23/23 [History Last Taken Unknown] Allergy/AdvReac Type Severity Reaction Status Date / Time No Known Allergies Allergy Verified 12/23/23 14:24 Social History (Updated 12/23/23 @ 13:[address] Gerhard Dao MD) household members: family Smoking Status: Never smoker ROS ROS Narrative 10 systems were reviewed with pertinent positives as noted in the HPI above. Physical Exam Const alert and no apparent distress General Appearance: cooperative HEENT normocephalic, head/scalp atraumatic and moist oral mucous membranes Eyes PERRL, EOMs intact bilaterally and conjunctivae normal Neck supple General: trachea midline Chest inspection of chest normal Resp normal respiratory effort Auscultation: Negative for rales, rhonchi or wheezes Cardio regular rate and regular rhythm GI normal to inspection, nondistended, normoactive bowel sounds Extremity no clubbing, cyanosis or edema Skin no rashes or lesions noted Neuro Neuro Narrative: Flaccid left upper extremity. Psych cooperative and affect normal Lab / Micro Data 12/24/23 04:05 12/24/23 04:05 Labs: Laboratory Results - last 24 hr 12/23/23 13:10: WBC 11.8 H, RBC 4.09 L, Hgb 12.3 L, Hct 38.6 L, MCV 94.4 H, MCH 30.1, MCHC 31.9 L, RDW Std Deviation 42.7, RDW Coeff of Velia 12.3, Plt Count 195, MPV 8.2, Immature Gran % (Auto) 0.400, Neut % (Auto) 64.6, Lymph % (Auto) 19.6, Gladwin % (Auto) 6.5, Eos % (Auto) 8.4 H, Baso % (Auto) 0.5, Absolute Neuts (auto) 7.6, Absolute Lymphs (auto) 2.30, Nucleated RBC % 0, PT 13.0, INR 1.0, APTT 21.6 L, Sodium 137, Potassium 4.6, Chloride 110 H, Carbon Dioxide 26.0, Anion Gap 1 L , BUN 19 H, Creatinine 1.57 H, Estim Creat Clear Calc 39.30, Est GFR (MDRD) Af Amer 55 L, Est GFR (MDRD) Non-Af 45 L, BUN/Creatinine Ratio 12.1, Glucose 159 H, Calcium 9.4, Troponin I High Sens 13 12/24/23 04:05: WBC 11.3 H, RBC 3.86 L, Hgb 11.6 L, Hct 35.6 L, MCV 92.2, MCH 30.1, MCHC 32.6, RDW Std Deviation 41.1, RDW Coeff of Velia 12.3, Plt Count 178, MPV 8.1, Immature Gran % (Auto) 0.400, Neut % (Auto) 64.9, Lymph % (Auto) 16.2 L , Gladwin % (Auto) 8.6, Eos % (Auto) 9.4 H, Baso % (Auto) 0.5, Absolute Neuts (auto) 7.4, Absolute Lymphs (auto) 1.84, Nucleated RBC % 0, Sodium 137, Potass ium 4.1, Chloride 111 H, Carbon Dioxide 25.0, Anion Gap 1 L, BUN 16, Creatinine 1.13, Estim Creat Clear Calc 57.38, Est GFR (MDRD) Af Amer 80, Est GFR (MDRD) Non-Af 66, BUN/Creatinine Ratio 14.2, Glucose 127 H, Calcium 8.9, Triglycerides 197, Cholesterol 134, LDL Cholesterol 59, VLDL Cholesterol 39, HDL Cholesterol 36 L, TSH 5.41 H Imaging Radiology Impression Brain CT 12/23/23 13:06 IMPRESSION: Chronic involutional changes of the brain. 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 N.B. : The above Results were Read Back by Anjel Sands MD to Gerhard Dao and understanding confirmed on 12/23/2023 13:21:48 (ET). Electronically Signed: Anjel Sands MD at 13:22 EST , ADDENDUM: 12/23/23 1329 IMPRESSION: Chronic involutional changes of the brain. 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 N.B. : The above Results were Read Back by Anjel Sands MD to Gerhard Dao and understanding confirmed on 12/23/2023 13:21:48 (ET). Electronically Signed: Anjel Sands MD at 13:22 EST , Chest X-Ray 12/23/23 13:06 IMPRESSION: No acute abnormality is seen. Electronically Signed: Anjel Sands MD at 13:56 EST , Head/Neck CTA 12/23/23 13:07 IMPRESSION: High-grade stenosis at the origin of the right internal carotid artery. Electronically Signed: Anjel Sands MD at 13:39 EST , ADDENDUM: 12/23/23 1347 IMPRESSION: High-grade stenosis at the origin of the right internal carotid artery. N.B. : The above Results were Read Back by Anjel Sands MD to Dr Feliberto MD, and understanding confirmed on 12/23/2023 13:40:07 (ET). Electronically Signed: Anjel Sands MD at 13:39 EST , Charges/Coding Visit Charges Inpatient E&M: 37933 Init Hosp L3
[2023-12-24] MEDS: 0.9% Saline Lock 10 ML Syringe IV (06:16)
[2023-12-24] MEDS: Levothyroxine 50 MCG Tablet PO (06:17)
[2023-12-24] MEDS: Acetaminophen 325 MG Tablet 650 MG PO ×2 (07:04→20:31)
[2023-12-24] MEDS: 0.9% Normal Saline (1000mL) 1,000 ML 100 ML IV (08:50)
[2023-12-24] MEDS: Citalopram 20 MG Tablet PO (08:52)
--- NOTE | 2023-12-24 10:36 | CASEMGMT ---
Discharge Planning A list of?SNF and RU providers including quality and resource use data and consistent with the patient's preferred geographic region, medical needs, and insurance network was created in [employer] Guide.? This list was provided to the SW. Maki Schumacher Discharge Planning Asst.
--- NOTE | 2023-12-24 10:45 | CASEMGMT ---
Social Work SW spoke w/pt, he is here from [facility]. Pt has been there about one year. Pt normally ambulates independently, does not use an assistive device. Pt states he works out at [employer], goes all over the facility and uses any gym he wants. 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 [facility] does provide pt's medication for him. SW spoke w/pt about discharge plan. Pt is to get up and do therapy later today, and this will help determine if placement would be needed. SW educated pt to hospital based rehab and custodial facility levels of care. LAUREN provided to pt via [employer] both custodial facility and hospital based rehab lists in pt's preferred geographic area, insurance network, and complete w/quality and resource use data. LAUREN explained to pt that SW will check back later today or tomorrow about what will be most appropriate for pt, return to [place], SNF, or hospital based rehab. Pt states understanding. SW will continue to follow. SHAKIRA Rocha
--- NOTE | 2023-12-24 13:01 | PCM.PN.HOSP ---
Reason for Visit Reason for Visit: Diagnoses Hypothyroidism, unspecified (12/23/23) Essential (primary) hypertension (12/23/23) Cerebral infarction, unspecified (12/23/23) Subjective Subjective Patient admitted yesterday afternoon to the ICU for an acute CVA with tenecteplase administration in the ED. No acute events overnight. Patient seen at bedside this morning. Patient was laying comfortably in bed, no acute distress. Patient states that he had a modest amount of improvement in the use of his left arm yesterday after TNK administration, however his arm steadily became weaker overnight and this morning he has essentially no use of his arm again. He has good movement of his left leg, states it feels heavier than his right leg but only mildly weaker. He denies any other numbness/tingling or weakness. No other acute concerns at this time. Objective Data Objective Data Vital Signs: Vital Signs Temp Pulse Resp BP Pulse Ox O2 Del Method 97.4 F L 68 17 141/69 H 98 Room Air 12/24/23 08:00 12/24/23 11:00 12/24/23 11:00 12/24/23 11:00 12/24/23 11:00 12/24/23 11:00 Oxygen Delivery Method Room Air Weight: 87.1 kg Body Mass Index (BMI) 26.9 Intake & Output: Intake and Output for Last 24 Hours 12/22/23 12/23/23 12/24/23 23:59 23:59 23:59 Intake Total 1471.67 / 1471.67 1151.67 / 1151.67 Output Total 1575 / 1850 2125 / 2125 Balance -103.33 / -378.33 -973.33 / -973.33 Lab / Micro Data 12/24/23 04:05 12/24/23 04:05 Labs: Laboratory Results - last 24 hr 12/23/23 13:10: WBC 11.8 H, RBC 4.09 L, Hgb 12.3 L, Hct 38.6 L, MCV 94.4 H, MCH 30.1, MCHC 31.9 L, RDW Std Deviation 42.7, RDW Coeff of Velia 12.3, Plt Count 195, MPV 8.2, Immature Gran % (Auto) 0.400, Neut % (Auto) 64.6, Lymph % (Auto) 19.6, [place] % (Auto) 6.5, Eos % (Auto) 8.4 H, Baso % (Auto) 0.5, Absolute Neuts (auto) 7.6, Absolute Lymphs (auto) 2.30, Nucleated RBC % 0, PT 13.0, INR 1.0, APTT 21.6 L, Sodium 137, Potassium 4.6, Chloride 110 H, Carbon Dioxide 26.0, Anion Gap 1 L, BUN 19 H, Creatinine 1.57 H, Estim Creat Clear Calc 39.30, Est GFR (MDRD) Af Amer 55 L, Est GFR (MDRD) Non-Af 45 L, BUN/Creatinine Ratio 12.1, Glucose 159 H, Calcium 9.4, Troponin I High Sens 13 12/24/23 04:05: WBC 11.3 H, RBC 3.86 L, Hgb 11.6 L, Hct 35.6 L, MCV 92.2, MCH 30.1, MCHC 32.6, RDW Std Deviation 41.1, RDW Coeff of Velia 12.3, Plt Count 178, MPV 8.1, Immature Gran % (Auto) 0.400, Neut % (Auto) 64.9, Lymph % (Auto) 16.2 L, [place] % (Auto) 8.6, Eos % (Auto) 9.4 H, Baso % (Auto) 0.5, Absolute Neuts (auto) 7.4, Absolute Lymphs (auto) 1.84, Nucleated RBC % 0, Sodium 137, Potassium 4.1, Chloride 111 H, Carbon Dioxide 25.0, Anion Gap 1 L, BUN 16, Creatinine 1.13, Estim Creat Clear Calc 57.38, Est GFR (MDRD) Af Amer 80, Est GFR (MDRD) Non-Af 66, BUN/Creatinine Ratio 14.2, Glucose 127 H, Calcium 8.9, Triglycerides 197, Cholesterol 134, LDL Cholesterol 59, VLDL Cholesterol 39, HDL Cholesterol 36 L, TSH 5.41 H Radiography Diagnostic Testing: Radiology Impression Brain CT 12/23/23 13:06 IMPRESSION: Chronic involutional changes of the brain. 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 N.B. : The above Results were Read Back by Anjel Sands MD to Gerhard Dao and understanding confirmed on 12/23/2023 13:21:48 (ET). Electronically Signed: Anjel Sands MD at 13:22 EST , ADDENDUM: 12/23/23 1329 IMPRESSION: Chronic involutional changes of the brain. 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 N.B. : The above Results were Read Back by Anjel Sands MD to Gerhard Dao and understanding confirmed on 12/23/2023 13:21:48 (ET). Electronically Signed: Anjel Sands MD at 13:22 EST , Chest X-Ray 12/23/23 13:06 IMPRESSION: No acute abnormality is seen. Electronically Signed: Anjel Sands MD at 13:56 EST , Head/Neck CTA 12/23/23 13:07 IMPRESSION: High-grade stenosis at the origin of the right internal carotid artery. Electronically Signed: nAjel Sands MD at 13:39 EST , ADDENDUM: 12/23/23 1347 IMPRESSION: High-grade stenosis at the origin of the right internal carotid artery. N.B. : The above Results were Read Back by Anjel Sands MD to Dr Feliberto MD, and understanding confirmed on 12/23/2023 13:40:07 (ET). Electronically Signed: Anjel Sands MD at 13:39 EST , Physical Exam Const alert, oriented x3, no apparent distress and average body habitus Constitutional Narrative: Pleasant elderly male, laying comfortably in bed, conversing normally, no acute distress. General Appearance: cooperative and comfortable HEENT normocephalic, head/scalp atraumatic, hearing grossly normal bilaterally, nasal mucous membranes and turbinates normal and moist oral mucous membranes Eyes PERRL, EOMs intact bilaterally and conjunctivae normal Neck full ROM, no lymphadenopathy and supple Lymph Lymphatic: no lymphadenopathy noted Chest inspection of chest normal Resp normal respiratory effort, normal air movement, no use of accessory muscles and clear to auscultation bilaterally Cardio regular rate, regular rhythm, no murmurs and peripheral pulses 2+ throughout GI normal to inspection, nondistended, normoactive bowel sounds, soft to palpation, non-tender and non-distended Back/Spine normal ROM Extremity normal to inspection and no pedal edema Skin no rashes or lesions noted Neuro Neuro Narrative: Significant weakness and left arm throughout, was unable to squeeze my hand with his left hand at all and could not move the entire arm at all. Good movement of his left leg and only had mild drift downward of the leg after 10 seconds of keeping the leg elevated. No other neurologic abnormalities. Speech: speech normal Psych mental status grossly normal Assessment & Plan Assessment/Plan (1) Acute stroke due to ischemia: PLAN: Plan Patient is an 83-year-old male who presented to [facility] ED on 12/23/2023 with acute onset of left facial droop, left upper extremity paralysis and left lower extremity weakness. 1. Acute CVA with left sided deficits; severe right internal carotid artery stenosis CT brain on admit nonacute. CTA head and neck showed severe atherosclerotic plaque formation of origin of right internal carotid artery with near complete occlusion, otherwise no abnormalities. NIHSS score of 11 on admit. Teleneurology evaluated, decision was made to administer tenecteplase in the ED and patient was admitted to the ICU. Echo 12/23 showed EF 60%, bubble study negative. Lipid panel with total cholesterol 134, LDL 59, HDL 36. ? Returned Telephone Equipment Appraiser, teleneurology and vascular surgery following. On strict bedrest until 2:30 PM this afternoon, then will have MRI brain done. Discussed with neurology and vascular surgery; right carotid appears to be more calcified rather than having a mobile lesion, and hope is that patient can remain hospitalized here with plan for vascular surgery for carotid endarterectomy within the next week. However, will follow-up MRI brain and if this shows either acute hemorrhage or severe ischemic abnormality, would need transferred to [facility] for further neurosurgical lesion. PT/OT/case management following. Continue home statin, holding home aspirin and Plavix after TNK administration, will defer to neurology on timing of restarting these medications. 2. History of hypertension ? Home medications of nifedipine and losartan. On nicardipine drip with labetalol as needed after TNK administration. Will plan to restart home medications when able. 3. Hypothyroidism ? TSH 5.4 on admit. Continue home Synthroid. Can consider medication titration in outpatient setting as needed. 4. Depression ? Continue home Celexa. DVT prophylaxis: SCDs CODE STATUS: DNR CCA, DNI Expected disposition: TBD Total clinical time spent by myself addressing the patient's medical issues, reviewing all the data, and collaborating with patient's care team: 35 minutes. Charges/Coding Visit Charges Inpatient E&M: 81697 Subs Hosp L2
[2023-12-24] MEDS: LORazepam 0.5 MG Tablet PO (14:09)
--- NOTE | 2023-12-24 14:28 | STROKE.PNOTE ---
Objective Data Objective Data Vital Signs: Vital Signs Temp Pulse Resp BP Pulse Ox O2 Del Method 97.8 F 68 19 H 150/74 H 97 Room Air 12/24/23 12:00 12/24/23 14:00 12/24/23 14:00 12/24/23 14:00 12/24/23 14:00 12/24/23 14:00 Oxygen Delivery Method Room Air Weight: 87.1 kg Body Mass Index (BMI) 26.9 Intake & Output: Intake and Output for Last 24 Hours 12/22/23 12/23/23 12/24/23 23:59 23:59 23:59 Intake Total 1471.67 / 1471.67 1391.67 / 1391.67 Output Total 1575 / 1850 2775 / 2775 Balance -103.33 / -378.33 -1383.33 / -1383.33 Lab / Micro Data 12/24/23 04:05 12/24/23 04:05 Labs: Laboratory Results - last 24 hr 12/24/23 04:05: WBC 11.3 H, RBC 3.86 L, Hgb 11.6 L, Hct 35.6 L, MCV 92.2, MCH 30.1, MCHC 32.6, RDW Std Deviation 41.1, RDW Coeff of Velia 12.3, Plt Count 178, MPV 8.1, Immature Gran % (Auto) 0.400, Neut % (Auto) 64.9, Lymph % (Auto) 16.2 L, [place] % (Auto) 8.6, Eos % (Auto) 9.4 H, Baso % (Auto) 0.5, Absolute Neuts (auto) 7.4, Absolute Lymphs (auto) 1.84, Nucleated RBC % 0, Sodium 137, Potassium 4.1, Chloride 111 H, Carbon Dioxide 25.0, Anion Gap 1 L, BUN 16, Creatinine 1.13, Estim Creat Clear Calc 57.38, Est GFR (MDRD) Af Amer 80, Est GFR (MDRD) Non-Af 66, BUN/Creatinine Ratio 14.2, Glucose 127 H, Calcium 8.9, Triglycerides 197, Cholesterol 134, LDL Cholesterol 59, VLDL Cholesterol 39, HDL Cholesterol 36 L, TSH 5.41 H Radiography Diagnostic Testing: Radiology Impression Echocardiogram 12/23/23 14:31 Interpretation Summary LVEF 60%. Bubble study uninterpretable. Technically difficult study with suboptimal images. Ordering Physician: Kiana Georges Referring Physician: Dani Fallon Performed By: Carolann Maki RDCS Physical Exam Neuro Neuro Narrative: Neurological examination: General:?The patient appears nutritionally appropriate, well-groomed, and appears comfortable in no acute distress.?Mental Status:??The patient?s mental status was normal including orientation.? Language was intact.??Cranial nerves:? Visual cordero full,, and extra-ocular motion was intact. Face motion symmetric.?? Tongue was midline with normal movement.? There was no dysarthria.?Motor:?Left arm weakness, no movement. Normal strength in right upper and bilateral lower extremities. No pronator drift on right.?Sensation:?Intact light touch bilaterally, no extinction.??Coordination:? Bilateral finger to nose was normal.? There was no dysmetria.?Gait:? deferred Subject: Neurology Subjective Patient feels better, left arm still has no movement. No CLAY. EEG Results Procedure Details EEG Procedure Details: MARIO PROCTOR is a 83 year old M with a past medical history of , who presents for evaluation of Electroencephalogram on DATE at TIME Assessment and Plan: Stroke Assessment/Plan MARIO PROCTOR is a 83 year old M with history of HTN, hypothryoidism, and prior ischemic stroke x 2 with residual vision changes who on 12/23/2023 at lunch at 1215p developed left sided weakness. He was brought to [facility] ER. CT brain negative. CTA head/neck shows high-grade right ICA stenosis. He was given IV TNK and admitted to ICU. LDL 59. Neurological examination shows left hemiparesis, NIHSS 4 (LUE-4). ASSESSMENT/PLAN: Acute right MCA ischemic stroke due to symptomatic high-grade right carotid stenosis. Recommend post TNK protocol, repeat CT brain at 24 hr and if negative for hemorrhage, start anti-platelet medication (on Asa/plavix at home) and lovenox SQ for DVT prophylaxis. Continue vascular risk factor modification. On lipitor 80. Stroke orders recommended including MRI brain, speech/swallow, PT/OT consults, stroke education. Stroke mechanism is large artery arthero (carotid stenosis). Recommend revascularization, vascular surgery consulted and plans surgery. Will review MRI brain when completed.
--- NOTE | 2023-12-24 14:30 | MRI_ITS ---
We are attempting to reach an attending provider to discuss findings. An addendum with communication details will be sent when the communication is complete. STUDY: MRI BRAIN WITHOUT CONTRAST REASON FOR EXAM: Male, 83 years old. CVA -- MRI 24 hours after IV thrombolytic administration TECHNIQUE: Multiplanar multisequence imaging of the brain was performed without the administration of intravenous contrast. COMPARISON: Noncontrast head CT 12/23/2023 FINDINGS: The ventricles, cisterns, and sulci are within are prominent consistent with age-related volume loss. Acute diffusion restriction in the right basal ganglia. No succeptibility artifict to suggest intracranial hemorrhage or mineralization. Major intracranial signal voids are preserved. There is high T2/FLAIR signal seen in the periventricular deep white matter. High right parietal and left occipital encephalomalacia with gliosis. There is no midline shift, mass effect, or extra axial fluid collections are seen. No CP angle or IAC mass is seen. The orbits are unremarkable. The sella turcica and craniovertebral junction are within normal limits. Left maxillary sinus mucoperiosteal thickening. The mastoid air cells are clear. MRI/Brain without Contrast IMPRESSION: Chronic microvascular ischemic changes. Acute ischemic focus in the right basal ganglia. Electronically Signed: Jose Kuhn MD at 16:41 EST ,
--- NOTE | 2023-12-24 16:39 | CON.PCM.SX_ITS ---
Assessment & Plan Assessment/Plan (1) Stenosis of right internal carotid artery with cerebral infarction: PLAN: CTA images were reviewed and by NASCET R ICA with 71% stenosis. MRI Brain showed R basal ganglia infarct <3cm without any evidence of hemorrhage. Recommend R carotid endarterectomy in 4-10 days from stroke. Carotid endarterec grace procedure including risks (including but not limited to bleeding, infection, and stroke), benefits, and recovery were discussed with the patient and his present family. Patient does wish to proceed with this surgery. Will plan for R carotid endarterectomy on 12/28/2023. Restart DAPT as per neurology recommendations. Continue statin. Will appreciate cardiology input for preoperative evaluation and optimization. HPI Consult Data Date of Consult: 12/24/23 HPI Narrative HPI Narrative: MARIO PROCTOR, is a 83 M who presented to the [facility] ER as a stroke alert on 12/22/22 with acute onset of left hemiparesis, facial droop, and dysarthria at 1220. His initial brain CT was negative. He was felt to be a candidate for TNK and did receive that around 1330. Following TNK administration he had significant improvement in his LLE weakness, facial droop, and dysarthria; he had transient improvement in his LUE weakness but this quickly returned to fl accid paralysis which has persisted. He was admitted to the ICU for further stroke workup and monitoring post-TNK. He had a CTA which showed significant R ICA stenosis. He had a Brain MRI today which showed R basal ganglia infarct without any evidence of hemorrhagic conversion. He does report a prior history of stroke about 1 year ago in which he had vision loss, his brother reports it was bilateral upper quadrants of his vision that was lost. He has been on DAPT and statin since that stroke. He reports there were no plans for carotid surgical intervention at that time. He does not have any history of heart disease. He reports prior to this stroke at home he was able to be quite active without any SOB or CP. No history of COPD/asthma. 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 His ROM is fair. No prior radiation to the neck. [facility] Home Medications acetaminophen 500 mg capsule 500 mg PO BID 12/23/23 [History Last Taken Unknown] aspirin 81 mg chewable tablet 1 tab PO DAILY 12/23/23 [History Last Taken Unknown] atorvastatin 80 mg tablet 80 mg PO QHS 12/23/23 [History Last Taken Unknown] citalopram 40 mg tablet (Celexa) 20 mg PO DAILY 12/23/23 [History Last Taken Unknown] clopidogrel 75 mg tablet 75 mg PO DAILY 12/23/23 [History Last Taken Unknown] docusate sodium 100 mg capsule (Colace) 100 mg PO BID 12/23/23 [History Last Taken Unknown] levothyroxine 50 mcg tablet 50 mcg PO DAILY 12/23/23 [History Last Taken Unknown] losartan 50 mg tablet 50 mg PO DAILY 12/23/23 [History Last Taken Unknown] multivitamin 1 tab PO DAILY 12/23/23 [History Last Taken Unknown] nifedipine 60 mg tablet,extended release 24 hr 60 mg PO DAILY 12/23/23 [History Last Taken Unknown] vit C 250 mg-vit E 90 mg-zinc 40 mg-copper 1 [id number] capsule (PreserVision AREDS-2) 1 tab PO BID 12/23/23 [History Last Taken Unknown] Allergy/AdvReac Type Severity Reaction Status Date / Time No Known Allergies Allergy Verified 12/23/23 14:24 Social History (Updated 12/23/23 @ 13:[address] Gerhard Dao MD) household members: family Smoking Status: Never smoker Physical Exam Const alert, oriented x3 and no apparent distress General Appearance: cooperative and comfortable HEENT normocephalic, head/scalp atraumatic, hearing grossly normal bilaterally and external nose normal Eyes EOMs intact bilaterally General Eye: normal appearance of both eyes Neck General: normal visual inspection and trachea midline Resp normal respiratory effort, no retractions and no use of accessory muscles Effort and Inspection: able to speak in complete sentences; Negative for labored, grunting, stridor or audible wheezes Cardio regular rate and regular rhythm Extremity no clubbing, cyanosis or edema Skin no rashes or lesions noted Trauma: no lacerations or abrasions Wounds: amputation Neuro oriented x3 and CN's II-XII intact bilaterally Neuro Narrative: Flaccid paralysis of the LUE Intact movement and strength in the LLE Speech: speech normal Psych mental status grossly normal Appearance: grossly normal Attitude: calm and engaged Activity / Motor Behavior: appropriate eye contact Speech: normal speech Mood & Affect: euthymic mood Judgement: judgement good Lab / Micro Data 12/24/23 04:05 12/24/23 04:05 Labs: Laboratory Results - last 24 hr 12/24/23 04:05: WBC 11.3 H, RBC 3.86 L, Hgb 11.6 L, Hct 35.6 L, MCV 92.2, MCH 30.1, MCHC 32.6, RDW Std Deviation 41.1, RDW Coeff of Velia 12.3, Plt Count 178, MPV 8.1, Immature Gran % (Auto) 0.400, Neut % (Auto) 64.9, Lymph % (Auto) 16.2 L , [place] % (Auto) 8.6, Eos % (Auto) 9.4 H, Baso % (Auto) 0.5, Absolute Neuts (auto) 7.4, Absolute Lymphs (auto) 1.84, Nucleated RBC % 0, Sodium 137, Potassium 4.1, Chloride 111 H, Carbon Dioxide 25.0, Anion Gap 1 L, BUN 16, Creatinine 1.13, Estim Creat Clear Calc 57.38, Est GFR (MDRD) Af Amer 80, Est GFR (MDRD) Non-Af 66, BUN/Creatinine Ratio 14.2, Glucose 127 H, Calcium 8.9, Triglycerides 197, Cholesterol 134, LDL Cholesterol 59, VLDL Cholesterol 39, HDL Cholesterol 36 L, TSH 5.41 H Imaging Radiology Impression Echocardiogram 12/23/23 14:31 Interpretation Summary LVEF 60%. Bubble study uninterpretable. Technically difficult study with suboptimal images. Ordering Physician: Kiana Georges Referring Physician: Dani Fallon Performed By: Carolann Maki RDCS
[2023-12-24] MEDS: Atorvastatin Calcium 80 MG Tablet PO (20:27)
[2023-12-24] MEDS: MELATONIN 3 MG TABLET PO (20:31)
[2023-12-25] VITALS (8 sets, daily range): BP systolic 141–161; BP diastolic 75–96; PULSE 58–75; RESP 17–20; TEMP 36.2–36.6; O2SAT 96–99; BMI 26.3
[2023-12-25] MEDS: Levothyroxine 50 MCG Tablet PO (04:54)
[2023-12-25] MEDS: 0.9% Saline Lock 10 ML Syringe IV (04:55)
[2023-12-25] MEDS: Citalopram 20 MG Tablet PO (08:31)
[2023-12-25] MEDS: Acetaminophen 325 MG Tablet 650 MG PO ×2 (08:34→21:01)
--- NOTE | 2023-12-25 09:45 | CASEMGMT ---
Social Work SW met w/pt, completed the PHQ-9. Pt told SW much about his life, career, travels. Pt tells SW he is not a people person. Pt explained when younger he changed jobs every four years as people would always hold him back. When SW asked question in PHQ-9 about if he would be better off , pt states he does think that at times. Pt states he has thought about harming himself, but would never do it, states he is too chicken shit. Pt expressed much frustration with his declining health and in particular the symptoms of his stroke. Pt states he has never tried to commit suicide. Pt states that every day he chooses to live. Pt states he is not afraid to , and wonders what happens after . He also does say he worries once he dies that he will miss what is going to happen tomorrow. Overall, though pt states is not afraid to , he tells SW every day he chooses to live. SW offered support to pt in regard to his current situation. Pt states he is on an antidepressant, and is open to counseling. SW gave pt counseling resources. SW remains available for support to pt as needed. SHAKIRA Rocha
--- NOTE | 2023-12-25 10:05 | CASEMGMT ---
Addendum entered by Minda Darden 12/25/23 10:36: Social Work Rehab did accept pt but won't start precert until after pt sees vascular surgery on Thursday. SW let pt know, pt states understanding. SW also gave pt a list of counseling resources. SHAKIRA Rocha Original Note: Social Work SW reviewed PT/OT notes. They are recommending rehab. SW spoke w/pt about options at discharge. He is agreeable to a referral to the inpt rehab, feels up to doing 3 hours of therapy per day, states he wants to do 7 hours a day. SW reached out to physician, pt to be seen by vascular surgery on Thursday, so here through weekend. SW made referral to rehab, though they will not review referral until after vascular surgery sees pt on Thursday. SHAKIRA Rocha
--- NOTE | 2023-12-25 11:28 | PN.NEURO_ITS ---
Objective Data Objective Data Vital Signs: Vital Signs Temp Pulse Resp BP Pulse Ox O2 Del Method 97.3 F L 67 17 143/80 H 98 Room Air 12/25/23 08:23 12/25/23 08:23 12/25/23 08:23 12/25/23 08:23 12/25/23 08:23 12/25/23 08:23 Oxygen Delivery Method Room Air Weight: 85.4 kg Body Mass Index (BMI) 26.3 Intake & Output: Intake and Output for Last 24 Hours 12/23/23 12/24/23 12/25/23 23:59 23:59 23:59 Intake Total 1471.67 / 1471.67 1871.67 / 1871.67 Output Total 1575 / 1850 3175 / 3475 600 / 600 Balance -103.33 / -378.33 -1303.33 / -1603.33 -600 / -600 Lab / Micro Data 12/24/23 04:05 12/24/23 04:05 Radiography Diagnostic Testing: Radiology Impression Echocardiogram 12/23/23 14:31 Interpretation Summary LVEF 60%. Bubble study uninterpretable. Technically difficult study with suboptimal images. Ordering Physician: Kiana Georges Referring Physician: Dani Fallon Performed By: Carolann Maki RDCS Brain MRI 12/24/23 14:30 IMPRESSION: Chronic microvascular ischemic changes. Acute ischemic focus in the right basal ganglia. Electronically Signed: Jose Kuhn MD at 16:41 EST , ADDENDUM: 12/24/23 8114 IMPRESSION: Chronic microvascular ischemic changes. Acute ischemic focus in the right basal ganglia. N.B. : The above Results were Read Back by Jose Kuhn MD to Salome Steiner RN, and understanding confirmed on 12/24/2023 17:08:59 (ET). Electronically Signed: Jose Kuhn MD at 16:41 EST , Physical Exam Neuro Neuro Narrative: Neurological examination: General:?The patient appears nutritionally appropriate, well-groomed, and appears comfortable in no acute distress.?Mental Status:??The patient?s mental status was normal including orientation.? Language was intact.??Cranial nerves:? Visual cordero full, and extra-ocular motion was intact. Face motion symmetric.? Tongue was midline with normal movement.? There was no dysarthria.?Motor:?Left arm weakness (no movement). Normal strength in all right upper and bilateral lower extremities.?Sensation:?Intact light touch bilaterally.??Coordination:? Bilateral finger to nose was normal.? There was no dysmetria.?Gait:? deferred Subject: Neurology Subjective Patient feels stable, no new complaints. Left arm weakness is same. 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 He was brought to [place] ER. CT brain negative. CTA head/neck shows high-grade right ICA stenosis. He was given IV TNK and admitted to ICU. LDL 59. MRI brain shows a deep right MCA infarct (mostly in basal ganglia). TTE EF 60%. Neurological examination shows left hemiparesis, NIHSS 4 (LUE-4). ASSESSMENT/PLAN: Acute right MCA ischemic stroke due to symptomatic high-grade right carotid stenosis. Stroke mechanism is large artery arthero (carotid stenosis). Stroke work-up completed. Recommend starting anti-platelet medication (Asa/plavix if okay with Vascular surgery vs Asa only). Recommend starting lovenox SQ for DVT prop hylaxis. Continue vascular risk factor modification. On lipitor 80. Recommend revascularization and vascular surgery consulted and plans surgery for Thursday (CEA). After CEA patient would be ready for rehab. Will sign off, please call us with further questions.
[2023-12-25] MEDS: Clopidogrel Bisulfate 75 MG Tablet PO (12:35)
[2023-12-25] MEDS: Aspirin 81 MG TAB.CHEW PO (12:35)
--- NOTE | 2023-12-25 12:41 | CON.PCM.CA_ITS ---
Assessment & Plan Assessment/Plan (1) Preoperative cardiovascular examination: PLAN: In my opinion, patient is an acceptable cardiac risk for the proposed carotid endarterectomy. Please avoid major hemodynamic swings during and after anesthesia. (2) Acute stroke due to ischemia: PLAN: As per neurology. (3) Stenosis of right internal carotid artery with cerebral infarction: PLAN: Vascular surgery contemplating right carotid endarterectomy. (4) Hypertension: PLAN: On losartan and nifedipine. (5) Hypercholesterolemia: PLAN: On atorvastatin. HPI Consult Data Date of Consult: 12/25/23 HPI Narrative HPI Narrative: This pleasant gentleman has past medical history significant for hypertension and dyslipidemia. He is admitted to the hospital with a CVA. Workup has revealed severe carotid artery disease on the right side. Plan is for carotid endarterectomy on Thursday. We are asked to evaluate his cardiac risk for the proposed procedure. Patient denies any previous cardiac history. Denies any chest pains or shortness of breath either at rest or with exertion. Per him, prior to his CVA he could climb 2 flights of stairs without any problems. Denies orthopnea. No PND. No ankle edema. No palpitations. Echocardiogram done here in the hospital showed LVEF of 60%. No significant valvular abnormalities were noted. [facility] Home Medications acetaminophen 500 mg capsule 500 mg PO BID 12/23/23 [History Last Taken Unknown] aspirin 81 mg chewable tablet 1 tab PO DAILY 12/23/23 [History Last Taken Unknown] atorvastatin 80 mg tablet 80 mg PO QHS 12/23/23 [History Last Taken Unknown] citalopram 40 mg tablet (Celexa) 20 mg PO DAILY 12/23/23 [History Last Taken Unknown] clopidogrel 75 mg tablet 75 mg PO DAILY 12/23/23 [History Last Taken Unknown] docusate sodium 100 mg capsule (Colace) 100 mg PO BID 12/23/23 [History Last Taken Unknown] levothyroxine 50 mcg tablet 50 mcg PO DAILY 12/23/23 [History Last Taken Unknown] losartan 50 mg tablet 50 mg PO DAILY 12/23/23 [History Last Taken Unknown] multivitamin 1 tab PO DAILY 12/23/23 [History Last Taken Unknown] nifedipine 60 mg tablet,extended release 24 hr 60 mg PO DAILY 12/23/23 [History Last Taken Unknown] vit C 250 mg-vit E 90 mg-zinc 40 mg-copper 1 [id number]-siwsil capsule (PreserVision AREDS-2) 1 tab PO BID 12/23/23 [History Last Taken Unknown] Allergy/AdvReac Type Severity Reaction Status Date / Time No Known Allergies Allergy Verified 12/23/23 14:24 Social History (Updated 12/23/23 @ 13:[address] Gerhard Dao MD) household members: family Smoking Status: Never smoker Physical Exam Narrative Comfortable. No apparent distress. Heart sounds 1 and 2 are normal. 2/6 systolic murmur at base. Chest clear to auscultation bilaterally. Abdomen soft. Alert oriented x 3. No ankle edema noted. Risk Stratification Risk Stratification Applicable: No Objective Data Vital Signs: Vital Signs Temp Pulse Resp BP Pulse Ox O2 Del Method 97.1 F L 63 20 H 141/75 H 98 Room Air 12/25/23 12:00 12/25/23 12:00 12/25/23 12:00 12/25/23 12:00 12/25/23 12:00 12/25/23 12:00 Oxygen Delivery Method Room Air Weight: 188 lb 4.396 oz Body Mass Index (BMI) 26.3 Intake & Output: Intake and Output for Last 24 Hours 12/23/23 12/24/23 12/25/23 23:59 23:59 23:59 Intake Total 1471.67 / 1471.67 1871.67 / 1871.67 120 / 120 Output Total 1575 / 1850 3175 / 3475 900 / 900 Balance -103.33 / -378.33 -1303.33 / -1603.33 -780 / -780 Lab / Micro Data 12/24/23 04:05 12/24/23 04:05 Cardiology Labs/Tests Rhythm: EKG: ECHO: Stress Test: Cardiac Cath: PCI: CT Surgery: Holter monitor: EPS: PPM: CXR: Chest CT Scan: Radiography Diagnostic Testing: Radiology Impression Echocardiogram 12/23/23 14:31 Interpretation Summary LVEF 60%. Bubble study uninterpretable. Technically difficult study with suboptimal images. Ordering Physician: Kiana Georges Referring Physician: Dani Fallon Performed By: Carolann Maki RDCS Brain MRI 12/24/23 14:30 IMPRESSION: Chronic microvascular ischemic changes. Acute ischemic focus in the right basal ganglia. Electronically Signed: Jose Kuhn MD at 16:41 EST , ADDENDUM: 12/24/23 1715 IMPRESSION: Chronic microvascular ischemic changes. Acute ischemic focus in the right basal ganglia. N.B. : The above Results were Read Back by Jose Kuhn MD to Salome Steiner RN, and understanding confirmed on 12/24/2023 17:08:59 (ET). Electronically Signed: Jose Kuhn MD at 16:41 EST ,
--- NOTE | 2023-12-25 13:30 | PCM.PN.SRG ---
Subjective Subjective Patient is seen today resting comfortably in the chair working with speech therapy today. He reports he has been up walking with PT. Still no use of his left arm, otherwise he is feeling okay. Neurology has cleared him to restart antiplatelet therapy. Cardiology has cleared him for surgery. Objective Data Objective Data Vital Signs: Vital Signs Temp Pulse Resp BP Pulse Ox O2 Del Method 97.1 F L 63 20 H 141/75 H 98 Room Air 12/25/23 12:00 12/25/23 12:00 12/25/23 12:00 12/25/23 12:00 12/25/23 12:00 12/25/23 12:00 Oxygen Delivery Method Room Air Weight: 188 lb 4.396 oz Body Mass Index (BMI) 26.3 Intake & Output: Intake and Output for Last 24 Hours 12/23/23 12/24/23 12/25/23 23:59 23:59 23:59 Intake Total 1471.67 / 1471.67 1871.67 / 1871.67 120 / 120 Output Total 1575 / 1850 3175 / 3475 900 / 900 Balance -103.33 / -378.33 -1303.33 / -1603.33 -780 / -780 Lab / Micro Data 12/24/23 04:05 12/24/23 04:05 Radiography Diagnostic Testing: Radiology Impression Echocardiogram 12/23/23 14:31 Interpretation Summary LVEF 60%. Bubble study uninterpretable. Technically difficult study with suboptimal images. Ordering Physician: Kiana Georges Referring Physician: Dani Fallon Performed By: Carolann Maki RDCS Brain MRI 12/24/23 14:30 IMPRESSION: Chronic microvascular ischemic changes. Acute ischemic focus in the right basal ganglia. Electronically Signed: Jose Kuhn MD at 16:41 EST , ADDENDUM: 12/24/23 1715 IMPRESSION: Chronic microvascular ischemic changes. Acute ischemic focus in the right basal ganglia. N.B. : The above Results were Read Back by Jose Kuhn MD to Salome Steiner RN, and understanding confirmed on 12/24/2023 17:08:59 (ET). Electronically Signed: Jose Kuhn MD at 16:41 EST , Physical Exam Const alert, oriented x3 and no apparent distress General Appearance: cooperative and comfortable HEENT normocephalic, head/scalp atraumatic, hearing grossly normal bilaterally and external nose normal Eyes EOMs intact bilaterally General Eye: normal appearance of both eyes Neck General: normal visual inspection and trachea midline Resp normal respiratory effort, no retractions and no use of accessory muscles Effort and Inspection: able to speak in complete sentences; Negative for labored, grunting, stridor or audible wheezes Cardio regular rate and regular rhythm Extremity no clubbing, cyanosis or edema Skin no rashes or lesions noted Trauma: no lacerations or abrasions Wounds: amputation Neuro oriented x3 and CN's II-XII intact bilaterally Neuro Narrative: Flaccid paralysis of the LUE Intact movement and strength in the LLE Speech: speech normal Psych mental status grossly normal Appearance: grossly normal Attitude: calm and engaged Activity / Motor Behavior: appropriate eye contact Speech: normal speech Mood & Affect: euthymic mood Judgement: judgement good Assessment & Plan Assessment/Plan (1) Stenosis of right internal carotid artery with cerebral infarction: PLAN: He had the opportunity to have questions/concerns addressed today. He remains agreeable to surgery. Plan is for Right CEA on Thursday 12/28. Continue ASA and Plavix, do not hold for surgery. NPO at midnight before surgery.
--- NOTE | 2023-12-25 14:50 | PN.HOSP_ITS ---
Reason for Visit Reason for Visit: Diagnoses Hypothyroidism, unspecified (12/23/23) Pure hypercholesterolemia, unspecified (12/23/23) Essential (primary) hypertension (12/23/23) Cerebral infarction due to unspecified occlusion or stenosis of right carotid arteries (12/23/23) Cerebral infarction, unspecified (12/23/23) Encounter for preprocedural cardiovascular examination (12/23/23) Subjective Subjective No acute events overnight. Patient seen at bedside this morning. Patient was laying comfortably in bed, in no acute distress. Patient was making some jokes during our encounter but did report feeling quite depressed about his current me dical state. He is very upset that he cannot use his left arm, and he was somewhat discouraged by his weakness and unsteadiness with walking with physical therapy yesterday. He is looking forward to working more with physical therapy over the next several days. He otherwise denies any acute pain or discomfort. No other acute concerns. Objective Data Objective Data Vital Signs: Vital Signs Temp Pulse Resp BP Pulse Ox O2 Del Method 97.1 F L 63 20 H 141/75 H 99 Room Air 12/25/23 12:00 12/25/23 12:00 12/25/23 12:00 12/25/23 12:00 12/25/23 12:35 12/25/23 13:56 Oxygen Delivery Method Room Air Weight: 85.4 kg Body Mass Index (BMI) 26.3 Intake & Output: Intake and Output for Last 24 Hours 12/23/23 12/24/23 12/25/23 23:59 23:59 23:59 Intake Total 1471.67 / 1471.67 1871.67 / 1871.67 120 / 120 Output Total 1575 / 1850 3175 / 3475 900 / 900 Balance -103.33 / -378.33 -1303.33 / -1603.33 -780 / -780 Lab / Micro Data 12/24/23 04:05 12/24/23 04:05 Radiography Diagnostic Testing: Radiology Impression Brain MRI 12/24/23 14:30 IMPRESSION: Chronic microvascular ischemic changes. Acute ischemic focus in the right basal ganglia. Electronically Signed: Jose Kuhn MD at 16:41 EST , ADDENDUM: 12/24/23 1715 IMPRESSION: Chronic microvascular ischemic changes. Acute ischemic focus in the right basal ganglia. N.B. : The above Results were Read Back by Jose Kuhn MD to Salome Steiner RN, and understanding confirmed on 12/24/2023 17:08:59 (ET). Electronically Signed: Jose Kuhn MD at 16:41 EST , Physical Exam Const alert, oriented x3, no apparent distress and average body habitus Constitutional Narrative: Pleasant elderly male, laying comfortably in bed, conversing normally, no acute distress. General Appearance: cooperative and comfortable HEENT normocephalic, head/scalp atraumatic, hearing grossly normal bilaterally, nasal mucous membranes and turbinates normal and moist oral mucous membranes Eyes PERRL, EOMs intact bilaterally and conjunctivae normal Neck full ROM, no lymphadenopathy and supple Lymph Lymphatic: no lymphadenopathy noted Chest inspection of chest normal Resp normal respiratory effort, normal air movement, no use of accessory muscles and clear to auscultation bilaterally Cardio regular rate, regular rhythm, no murmurs and peripheral pulses 2+ throughout GI normal to inspection, nondistended, normoactive bowel sounds, soft to palpation, non-tender and non-distended Back/Spine normal ROM Extremity normal to inspection and no pedal edema Skin no rashes or lesions noted Neuro Neuro Narrative: Significant left arm weakness throughout, similar to previous. Left leg with mild weakness, stable. Speech: speech normal Psych mental status grossly normal Assessment & Plan Assessment/Plan (1) Acute stroke due to ischemia: PLAN: Plan Patient is an 83-year-old male who presented to [facility] ED on 12/23/2023 with acute onset of left facial droop, left upper extremity paralysis and left lower extremity weakness. 1. Acute CVA with left sided deficits; severe right internal carotid artery stenosis CT brain on admit nonacute. CTA head and neck showed severe atherosclerotic plaque formation of origin of right internal carotid artery with near complete occlusion, otherwise no abnormalities. NIHSS score of 11 on admit. Teleneurology evaluated, decision was made to administer tenecteplase in the ED and patient was admitted to the ICU. Echo 12/23 showed EF 60%, bubble study negative. Lipid panel with total cholesterol 134, LDL 59, HDL 36. MRI brain 12/24 showed acute ischemic focus in right basal ganglia. ? Fresh Food Manager, teleneurology and vascular surgery following. Planning for carotid endarterectomy with vascular surgery on 12/28. Okay to restart aspirin and Plavix on 12/25. Cardiology consulted for preoperative evaluation. PT/OT/case management following. Likely plan for discharge to inpatient rehab next week after surgery is done. Continue home statin. 2. History of hypertension ? Initially on nicardipine drip with labetalol as needed after TNK administration. Okay to restart home nifedipine and losartan on 12/25. 3. Hypothyroidism ? TSH 5.4 on admit. Continue home Synthroid. Can consider medication titration in outpatient setting as needed. 4. Depression ? Continue home Celexa. DVT prophylaxis: SCDs CODE STATUS: DNR CCA, DNI Expected disposition: Inpatient rehab, TBD Total clinical time spent by myself addressing the patient's medical issues, reviewing all the data, and collaborating with patient's care team: 35 minutes. Charges/Coding Visit Charges Inpatient E&M: 84917 Subs Hosp L2
--- NOTE | 2023-12-25 15:45 | CHAPLAIN ---
Type of Pastoral Visit ___ Initial Visit _x__ Follow-up Visit ___ On-call Visit ___ General Patient Visit ___ Spiritual Assessment ___ Family Conference ___ Bereavement ___ Rapid Response ___ Code Blue ___ Other (describe below) Pastoral Care Referral From ___ Patient _x__ Family ___ Nurse ___ Physician ___ [employer] Appellate Law Clerk ___ Design Analyst ___ Other (describe below) Sacrament/Intervention _x__ Active listening ___ Anointing ___ Temple ___ Bereavement ___ Communion ___ Betty exploration ___ _x__ Life review ___ Prayer ___ Reconciliation ___ Sacrament of Sick ___ Supportive presence ___ Wedding ___ Other (describe below) Pastoral Comments patient had been briefly seen when he arrived and was a stroke alert two days ago; brother of patient has requested visit and possible spiritual care; pt is eating his lunch and is welcoming and talkative; family member described pt as atheistic and the subject of christian or betty was not discussed; offer of concern and support given; pt states that he is doing fine, is going to work on his recovery, and hopes to live a few more years; pt is talkative and gives some life review of his many travels; pt has goals; pt is pleasant to talk with for this time
[2023-12-25] MEDS: MELATONIN 3 MG TABLET PO (21:01)
[2023-12-25] MEDS: Atorvastatin Calcium 80 MG Tablet PO (21:02)
[2023-12-26] VITALS (9 sets, daily range): BP systolic 115–181; BP diastolic 73–104; PULSE 53–68; RESP 14–19; TEMP 36.3–36.8; O2SAT 94–99; BMI 26.2
[2023-12-26] MEDS: 0.9% Saline Lock 10 ML Syringe IV ×2 (00:53→15:58)
[2023-12-26] MEDS: Labetalol (Prefilled) 20 MG/4 ML IV (00:53)
[2023-12-26] MEDS: Levothyroxine 50 MCG Tablet PO (06:53)
[2023-12-26] MEDS: Aspirin 81 MG TAB.CHEW PO (09:24)
[2023-12-26] MEDS: NIFEdipine 60 MG Tablet PO (09:25)
[2023-12-26] MEDS: Clopidogrel Bisulfate 75 MG Tablet PO (09:25)
[2023-12-26] MEDS: Losartan Potassium 50 MG Tablet PO (09:28)
[2023-12-26] MEDS: Citalopram 20 MG Tablet PO (09:28)
--- NOTE | 2023-12-26 12:19 | PCM.PN.HOSP ---
Reason for Visit Reason for Visit: Diagnoses Hypothyroidism, unspecified (12/23/23) Pure hypercholesterolemia, unspecified (12/23/23) Essential (primary) hypertension (12/23/23) Cerebral infarction due to unspecified occlusion or stenosis of right carotid arteries (12/23/23) Cerebral infarction, unspecified (12/23/23) Encounter for preprocedural cardiovascular examination (12/23/23) Subjective Subjective No acute events overnight. Patient seen at bedside this morning. Laying comfortably in bed, conversing normally, no acute distress. Patient was talking with his brother over the phone when I arrived to the room. Patient appeared to be in better spirits this morning than yesterday. He was still generally upset about his current condition with not being able to move his arm much and having to drag his leg when he walks, but he did like working with physical therapy yesterday and wants to do more work with therapy when able. He denies any other acute pain or discomfort. No other acute concerns this time. Objective Data Objective Data Vital Signs: Vital Signs Temp Pulse Resp BP Pulse Ox O2 Del Method 97.7 F L 61 16 158/86 H 99 Room Air 12/26/23 12:00 12/26/23 12:00 12/26/23 12:00 12/26/23 12:00 12/26/23 12:00 12/26/23 12:00 Oxygen Delivery Method Room Air Weight: 85.2 kg Body Mass Index (BMI) 26.2 Intake & Output: Intake and Output for Last 24 Hours 12/24/23 12/25/23 12/26/23 23:59 23:59 23:59 Intake Total 1871.67 / 1871.67 120 / 120 240 / 240 Output Total 3175 / 3475 900 / 1050 625 / 625 Balance -1303.33 / -1603.33 -780 / -930 -385 / -385 Lab / Micro Data 12/24/23 04:05 12/24/23 04:05 Physical Exam Const alert, oriented x3, no apparent distress and average body habitus Constitutional Narrative: Pleasant elderly male, laying comfortably in bed, conversing normally, no acute distress. General Appearance: cooperative and comfortable HEENT normocephalic, head/scalp atraumatic, hearing grossly normal bilaterally, nasal mucous membranes and turbinates normal and moist oral mucous membranes Eyes PERRL, EOMs intact bilaterally and conjunctivae normal Neck full ROM, no lymphadenopathy and supple Lymph Lymphatic: no lymphadenopathy noted Chest inspection of chest normal Resp normal respiratory effort, normal air movement, no use of accessory muscles and clear to auscultation bilaterally Cardio regular rate, regular rhythm, no murmurs and peripheral pulses 2+ throughout GI normal to inspection, nondistended, normoactive bowel sounds, soft to palpation, non-tender and non-distended Back/Spine normal ROM Extremity normal to inspection and no pedal edema Skin no rashes or lesions noted Neuro Neuro Narrative: Significant left arm weakness throughout, similar to previous. Left leg with mild weakness, stable. Speech: speech normal Psych mental status grossly normal Assessment & Plan Assessment/Plan (1) Acute stroke due to ischemia: PLAN: Plan Patient is an 83-year-old male who presented to [facility] ED on 12/23/2023 with acute onset of left facial droop, left upper extremity paralysis and left lower extremity weakness. 1. Acute CVA with left sided deficits; severe right internal carotid artery stenosis CT brain on admit nonacute. CTA head and neck showed severe atherosclerotic plaque formation of origin of right internal carotid artery with near complete occlusion, otherwise no abnormalities. NIHSS score of 11 on admit. Teleneurology evaluated, decision was made to administer tenecteplase in the ED and patient was admitted to the ICU. Echo 12/23 showed EF 60%, bubble study negative. Lipid panel with total cholesterol 134, LDL 59, HDL 36. MRI brain 12/24 showed acute ischemic focus in right basal ganglia. ? Pick Up Attendant, teleneurology and vascular surgery following. Planning for carotid endarterectomy with vascular surgery on 12/28. Restarted aspirin and Plavix on 12/25. See cardiology note for preoperative evaluation. PT/OT/case management following. Likely plan for discharge to inpatient rehab next week after surgery is done. Continue home statin. 2. History of hypertension ? Initially on nicardipine drip with labetalol as needed after TNK administration. Restarted home nifedipine and losartan on 12/25. 3. Hypothyroidism ? TSH 5.4 on admit. Continue home Synthroid. Can consider medication titration in outpatient setting as needed. 4. Depression ? Continue home Celexa. DVT prophylaxis: SCDs CODE STATUS: DNR CCA, DNI Expected disposition: Inpatient rehab, TBD Total clinical time spent by myself addressing the patient's medical issues, reviewing all the data, and collaborating with patient's care team: 25 minutes. Charges/Coding Visit Charges Inpatient E&M: 94164 Subs Hosp L1
[2023-12-26] MEDS: Acetaminophen 325 MG Tablet 650 MG PO (17:19)
--- NOTE | 2023-12-26 18:20 | CASEMGMT ---
Social Work SW introduced self and role to patient. Patient reports having difficulty with his current condition. Pt reports he cannot move his left arm independently at all and he is very frustrated with physical restrictions. Pt able to laugh and joke. Patient discussed life experiences which were very adventurous but inability to live as he used to. SW provided emotional support. Pt denies the need for resources at this time. Elda Live MARKET REPORTER, SCHOOL PRINCIPAL
[2023-12-26] MEDS: Senna/Docusate Sodium 1 Tablet 2 TABLET PO (18:21)
[2023-12-26] MEDS: Atorvastatin Calcium 80 MG Tablet PO (22:08)
[2023-12-27] VITALS: BP 135/72; PULSE 69; RESP 14; TEMP 36.6; O2SAT 97
[2023-12-27 02:56] VITALS: BMI 26.2
[2023-12-27 05:00] VITALS: BP 139/72; PULSE 75; RESP 16; TEMP 36.6; O2SAT 97
[2023-12-27] MEDS: Levothyroxine 50 MCG Tablet PO (05:14)
[2023-12-27] MEDS: 0.9% Saline Lock 10 ML Syringe IV (05:14)
[2023-12-27 05:24] LABS: Hemoglobin 12.6 g/dL (13.0-16.5); Mean Corp Hgb Conc 33.2 g/dL (32-36); Mean Corpuscular Hgb 30.9 pg (27.0-32.0); Mean Corpuscular Volume 93.1 fL (80-94); Platelet Count 170 K/mm3 (150-450); RBC Distribution Width CV 12.3 % (11.6-14.6); Red Blood Count 4.08 M/mm3 (4.6-6.2)
[2023-12-27 06:00] VITALS: BMI 26.2
[2023-12-27 06:12] LABS: Anion Gap 5 (5-15); BUN 22 mg/dL (7-18); BUN/Creat Ratio 18.3 RATIO (10-20); Calcium,Total 9.1 mg/dL (8.5-10.1); Chloride 112 mmol/L (98-107); EST Glomerular Filtration Rate 62 mL/min (>60); Est Glom Filt Rate - Afr Amer 75 mL/min (>60); Estimated Creatinine Clearance 49.85 ml/min; Glucose 105 mg/dL (74-106); Potassium 4.4 mmol/L (3.5-5.1); Sodium Level 142 mmol/L (136-145)
[2023-12-27] MEDS: Clopidogrel Bisulfate 75 MG Tablet PO (08:29)
[2023-12-27] MEDS: Aspirin 81 MG TAB.CHEW PO (08:29)
[2023-12-27] MEDS: Senna/Docusate Sodium 1 Tablet 2 TABLET PO (08:29)
[2023-12-27] MEDS: Citalopram 20 MG Tablet PO (08:29)
[2023-12-27 08:30] VITALS: BP 122/80; PULSE 69; RESP 19; TEMP 36.8; O2SAT 100
[2023-12-27] MEDS: NIFEdipine 60 MG Tablet PO (08:30)
[2023-12-27] MEDS: Losartan Potassium 50 MG Tablet PO (08:30)
[2023-12-27 11:30] VITALS: BMI 26.2
--- NOTE | 2023-12-27 13:10 | PN.HOSP_ITS ---
Reason for Visit Reason for Visit: Diagnoses Hypothyroidism, unspecified (12/23/23) Pure hypercholesterolemia, unspecified (12/23/23) Essential (primary) hypertension (12/23/23) Cerebral infarction due to unspecified occlusion or stenosis of right carotid arteries (12/23/23) Cerebral infarction, unspecified (12/23/23) Encounter for preprocedural cardiovascular examination (12/23/23) Subjective Subjective No acute event overnight. Patient seen at bedside this morning. Patient had just been moved to the bedside commode by nursing staff. States that he continues to feel weak today and his left leg feels heavy whenever he tries to move, similar to previous days. He is looking forward to having his procedure done tomorrow so that he can work towards getting out of the hospital. No other acute concerns morning. Objective Data Objective Data Vital Signs: Vital Signs Temp Pulse Resp BP Pulse Ox O2 Del Method 98.3 F 69 19 H 122/80 H 100 Room Air 12/27/23 08:30 12/27/23 08:30 12/27/23 08:30 12/27/23 08:30 12/27/23 08:30 12/27/23 08:30 Oxygen Delivery Method Room Air Weight: 85 kg Body Mass Index (BMI) 26.2 Intake & Output: Intake and Output for Last 24 Hours 12/25/23 12/26/23 12/27/23 23:59 23:59 23:59 Intake Total 120 / 120 240 / 240 480 / 480 Output Total 900 / 1050 1125 / 1125 900 / 900 Balance -780 / -930 -885 / -885 -420 / -420 Lab / Micro Data 12/27/23 05:10 12/27/23 05:10 Labs: Laboratory Results - last 24 hr 12/27/23 05:10: WBC 10.0, RBC 4.08 L, Hgb 12.6 L, Hct 38.0 L, MCV 93.1, MCH 30.9, MCHC 33.2, RDW Std Deviation 42.0, RDW Coeff of Velia 12.3, Plt Count 170, MPV 8.0, Sodium 142, Potassium 4.4, Chloride 112 H, Carbon Dioxide 25.0, Anion Gap 5, BUN 22 H, Creatinine 1.20, Estim Creat Clear Calc 49.85, Est GFR (MDRD) Af Amer 75, Est GFR (MDRD) Non-Af 62, BUN/Creatinine Ratio 18.3, Glucose 105, Calcium 9.1 Physical Exam Const alert, oriented x3, no apparent distress and average body habitus Constitutional Narrative: Pleasant elderly male, laying comfortably in bed, conversing normally, no acute distress. General Appearance: cooperative and comfortable HEENT normocephalic, head/scalp atraumatic, hearing grossly normal bilaterally, nasal mucous membranes and turbinates normal and moist oral mucous membranes Eyes PERRL, EOMs intact bilaterally and conjunctivae normal Neck full ROM, no lymphadenopathy and supple Lymph Lymphatic: no lymphadenopathy noted Chest inspection of chest normal Resp normal respiratory effort, normal air movement, no use of accessory muscles and clear to auscultation bilaterally Cardio regular rate, regular rhythm, no murmurs and peripheral pulses 2+ throughout GI normal to inspection, nondistended, normoactive bowel sounds, soft to palpation, non-tender and non-distended Back/Spine normal ROM Extremity normal to inspection and no pedal edema Skin no rashes or lesions noted Neuro Neuro Narrative: Significant left arm weakness throughout, similar to previous. Left leg with mild weakness, stable. Speech: speech normal Psych mental status grossly normal Assessment & Plan Assessment/Plan (1) Acute stroke due to ischemia: PLAN: Plan Patient is an 83-year-old male who presented to [facility] ED on 12/23/2023 with acute onset of left facial droop, left upper extremity paralysis and left lower extremity weakness. 1. Acute CVA with left sided deficits; severe right internal carotid artery stenosis CT brain on admit nonacute. CTA head and neck showed severe atherosclerotic plaque formation of origin of right internal carotid artery with near complete occlusion, otherwise no abnormalities. NIHSS score of 11 on admit. Teleneurology evaluated, decision was made to administer tenecteplase in the ED and patient was admitted to the ICU. Echo 12/23 showed EF 60%, bubble study negative. Lipid panel with total cholesterol 134, LDL 59, HDL 36. MRI brain 12/24 showed acute ischemic focus in right basal ganglia. ? 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 Planning for carotid endarterectomy with vascular surgery on 12/28, n.p.o. at midnight tonight. Restarted aspirin and Plavix on 2/9. See cardiology note for preoperative evaluation. PT/OT/case management following. Likely plan for disc harge to inpatient rehab next week after surgery is done. Continue home statin. 2. History of hypertension ? Initially on nicardipine drip with labetalol as needed after TNK administration. Restarted home nifedipine and losartan on 12/25, BP has been stable. 3. Hypothyroidism ? TSH 5.4 on admit. Continue home Synthroid. Can consider medication titration in outpatient setting as needed. 4. Depression ? Continue home Celexa. DVT prophylaxis: SCDs CODE STATUS: DNR CCA, DNI Expected disposition: Inpatient rehab, TBD Total clinical time spent by myself addressing the patient's medical issues, reviewing all the data, and collaborating with patient's care team: 25 minutes. Charges/Coding Visit Charges Inpatient E&M: 91896 Subs Hosp L1
[2023-12-27 14:45] VITALS: BP 100/74; PULSE 74; RESP 18; TEMP 36.3; O2SAT 97
[2023-12-27 20:45] VITALS: BP 116/64; PULSE 64; RESP 18; TEMP 36.6; O2SAT 97
[2023-12-27] MEDS: Atorvastatin Calcium 80 MG Tablet PO (20:58)
[2023-12-28] VITALS (20 sets, daily range): BP systolic 100–135; BP diastolic 43–73; PULSE 49–70; RESP 14–19; TEMP 36.3–36.9; O2SAT 92–99; BMI 26.1
[2023-12-28] MEDS: 0.9% Saline Lock 10 ML Syringe IV ×2 (05:45→08:42)
[2023-12-28] MEDS: Levothyroxine 50 MCG Tablet PO (05:46)
[2023-12-28 06:08] LABS: Absolute Neutrophil Count 6.3 X10^3/uL (2.0-7.7); Basophil# 0.06 X10^3/uL; Basophil% 0.6 % (0-1); Eosinophil# 0.77 X10^3/uL; Eosinophils% 7.5 % (0-5); Hematocrit 35.6 % (40-54); Hemoglobin 11.8 g/dL (13.0-16.5); Lymphocyte % 23.3 % (19-41); Mean Corp Hgb Conc 33.1 g/dL (32-36); Mean Corpuscular Hgb 31.4 pg (27.0-32.0); Mean Corpuscular Volume 94.7 fL (80-94); Mean Platelet Vol. 8.3 fl (6.2-12.0); Monocyte# 0.76 X10^3/uL; Monocyte% 7.4 % (0-10); NRBC Flagged by Analyzer 0 % (0-5); Neutrophil # 6.26 X10^3/uL (2.7-7.7); Neutrophil % 60.8 % (47-70); Platelet Count 177 K/mm3 (150-450); RBC Distribution Width CV 12.5 % (11.6-14.6); RBC Distribution Width SD 43.2 fl (35.1-43.9); Red Blood Count 3.76 M/mm3 (4.6-6.2); White Blood Count 10.3 K/mm3 (4.4-11.0)
[2023-12-28 06:23] LABS: Anion Gap 6 (5-15); BUN 26 mg/dL (7-18); BUN/Creat Ratio 20.8 RATIO (10-20); Calcium,Total 8.7 mg/dL (8.5-10.1); Chloride 114 mmol/L (98-107); Creatinine, Serum 1.25 mg/dL (0.70-1.30); EST Glomerular Filtration Rate 59 mL/min (>60); Est Glom Filt Rate - Afr Amer 71 mL/min (>60); Estimated Creatinine Clearance 47.86 ml/min; Glucose 98 mg/dL (74-106); Potassium 4.3 mmol/L (3.5-5.1); Sodium Level 142 mmol/L (136-145)
[2023-12-28] MEDS: Clopidogrel Bisulfate 75 MG Tablet PO (08:38)
[2023-12-28] MEDS: Aspirin 81 MG TAB.CHEW PO (08:38)
[2023-12-28 08:43] LABS: International Normalized Ratio 1.2
--- NOTE | 2023-12-28 09:34 | CASEMGMT ---
Social Work Pt to have a CEA today. Precert to be started for rehab once pt's surgery is completed. SW will continue to follow. SHAKIRA Rocha
[2023-12-28] MEDS: 0.9% Normal Saline (1000mL) 1,000 ML IV (10:06)
[2023-12-28] MEDS: Lactated Ringers 1,000 ML 15 ML IV (10:13)
[2023-12-28] MEDS: Cefazolin 2 GM in 0.9% Normal Saline (100mL Bag) 100 ML IV (11:02)
--- NOTE | 2023-12-28 11:30 | PLAQ_PTH ---
PATHOLOGY RESULTS PATIENT: MARIO PROCTOR LOC: ICU U#:[id number] AGE/SX: 83/M ROOM: ICU08 RE12/23/[address]: Dr. Kevin Powell MD : [id number] BED: 1 DIS: 12/30/2023 SPEC #: [id number] RECD: 12/28/23 18:07 STATUS: HUMZA RE #: [id number] ANURAG: 12/28/23 11:[address]: Zuhair Huynh DEPT: SURGICAL PATHOLOGY RECD BY: Deidra Garnica ENTERED: 12/29/23 08:49 SP TYPE: PLAQUE OTHR DR: MD Dr. Vladimir Riley MD Dr. Allison Jordan, DO Dr. Alexander Mosteller, DO Dr. Arshad Rehan, MD Dr. Alicia Zha, MD Dr. Brendan Duffy, MD Dr. Bhava Reddy, MD Dr. Cyril Ofori, MD Dr. Deepak Gulati, MD Dr. Emile Daoud, MD Dr. Eric Lo, MD Dr. Eric Turney, MD Dr. Farouk Belal, MD Dr. Hera Kamdar, MD Dr. Jan Bittar, MD Dr. James Burke, MD Dr. Matthew Gusler, MD Dr. Michael Hughes, MD Dr. Mikhail Kirnus, MD Dr. Maryam Mian, MD Dr. Mihail Paxos, MD Dr. Mohamed Ridha, MD Dr. Mhd Ezzat Zaghlouleh, MD Dr. Nagapradee Nagajothi, MD Dr. Paul Moodispaw, MD Dr. Paige Pierce, MD Dr. Peter Robinson, MD Dr. Sushil Lakhani, MD Dr. Steven Fallon, MD Dr. Mohan Decatur, MD Dr. David Lostine, MD Dr. Abiola Gm, MD Dr. Sven Martini, MD Mario H Roof, JUANIS Bennett PA Tissues: PLAQUE Procedures: Decalcification bone/plaque Surgery Specimen Level III Comments: @ Ordering doctor for DEC edited from to @ by RGOOD at 12/30/23833 @ Ordering doctor for SUIII edited from to @ by RGOOD at 12/30/23 08 @ Submitting doctor edited from to @ by RGOOD at 12/30/23833 HEADER OPERATION: Carotid endarterectomy PRE-OP DIAGNOSIS: Right carotid artery stenosis TISSUE SUBMITTED: Right carotid plaque MICROSCOPIC DIAGNOSIS Right carotid plaque, endarterectomy: Atherosclerotic tissue with focal moderate calcifications (plaque). ROSELINE:slava 01/04/2024 GROSS DESCRIPTION Received in fixative is one container labeled with the patient's name and designated right carotid plaque. The specimen consists of multiple irregular fragments of yellow-toscano plaque-like material that in aggregate measure 3.0 x 2.0 x 1.0 cm. The specimen is sectioned and totally submitted in one cassette after decalcification. / AM:slava 12/29/2023 TC:5 CPT: 22689, 22310
[2023-12-28] MEDS: Heparin Injection (Vial) 5,000 UNIT/ML VIAL 5000 UNIT (11:42)
--- NOTE | 2023-12-28 13:21 | OP.PCM_ITS ---
Report of Operation Date of Procedure: 12/28/23 Pre-Operative Diagnosis: symptomatic right carotid stenosis Post-Operative Diagnosis: same Surgery/Procedure Performed:: right carotid endarterectomy Surgeon: Zuhair Huynh Type of Anesthesia: General Specimen's removed: Plaque Drains: 19 Fr ARGELIA Estimated Blood Loss (mL): 25 Description of Procedure: HPI: Patient is an 83-year-old male who presents with right hemispheric stroke symptoms and was found to have high-grade calcified right internal carotid artery stenosis as well as a acute infarct on MRI. Given the relatively small volume of his stroke and severity of stenosis he is taken now as inpatient for endarterectomy. He continues to have residual left arm paralysis and left lower extremity weakness which have been essentially stable since his initial presentation. Description of procedure: Upon obtaining informed consent and verification correct patient procedure site patient taken to the operating was placed under general esthesia. He was then positioned prepped and draped in usual fashion a time was performed. Oblique incision was made along the anterior border the sternocleidomastoid and Bovie was carried dissect down through subcutaneous tissue to the level of the platysma. The platysma was then divided and self- retaining retractors put in position after which dissection was carried down to the sternocleidomastoid. Sternocleidomastoid and dissected along his anterior border and trachea laterally exposing the carotid sheath. Sharp dissection used to dissect free the anterior surface of the internal jugular vein with sidebranches and facial vein identified, ligated with silk ties, and divided. Note there were multiple accessory venous branches that were noted to drain into the jugular vein adjacent to the carotid vessels. Also the carotid vessels themselves were significantly rotated with the internal carotid artery deep and medial to the external. After the jugular vein was mobilized sharp dissection used dissect free the proximal common carotid artery with care taken to identify and protect the vagus nerve. A running was replaced vessel loop proximally after which the patient was heparinized allowed circulate for 3 minutes. Subsequent heparin doses were performed based on serial ACT's. Next sharp dissection was performed to mobilize the lateral aspect of the carotid vessels to the internal carotid artery beyond the area of palpable and visible plaque. As the vessel was mobilized from its adjacent soft tissues it was able to rotate back into normal anatomic position. Care was taken to identify and protect the hypoglossal nerve and a right angle was used to place a vessel loop around the distal internal carotid artery. Finally the external carotid artery was dissected free circumferentially and a right angle was placed vessel. This was then occluded first the internal followed by the common the external. Longitudinal arteriotomy was created with 11 blade and the common carotid artery extended Ghosh scissors onto the internal carotid artery beyond the area of plaque. A [address] shunt was then placed first distally in the internal carotid artery allowed to backbleed prior to placing into the common carotid artery proximally. The shunt was then interrogated Doppler found to be patent low resistance signal. We then performed endarterectomy with a freer elevator with satisfactory endpoint distally on the internal carotid artery and eversion endarterectomy of the external carotid artery. The limb was then flushed to clear debris in the distal endpoint tacked with 7-0 Prolene. A bovine pericardial patch was then brought in the field and secured in position using 6- 0 Prolene running fashion. Prior to completing suture line the shunt was withdrawn and the vessel to backbleed into the bifurcation. After completing the suture line the internal carotid artery was allowed to backbleed and the occluded at the origin. Clamps were then removed from the external and common carotid artery allowing 10 heartbeats of antegrade flow to flush into the external carotid artery before reestablishing flow into the internal carotid artery. After releasing the clamps are satisfactory hemostasis noted and the vessels were interrogated with Doppler. The internal carotid artery was patent with low resistance signal in the external carotid artery was patent with normal signal. Heparin reversed with protamine and Mitch topical hemostatic applied after which a 19 [address] ARGELIA was placed via separate stab incision. The incision was then inspected for hemostasis and closed with 2-0 Vicryl, 3-0 Vicryl, 4 Monocryl and Dermabond for the skin. At the conclusion of case patient was awakened anesthesia with cranial nerves intact. His flaccid paralysis of left lower extremity was unchanged. His weakness in his left lower extremity initially was exacerbated he had very limited movement however over the next several minutes he returned to his new baseline left lower extremity motor 4 out of 5. He was then taken to the recovery room with dissipate admission to the intensive care unit for ongoing hemodynamic and neurologic monitoring.
--- NOTE | 2023-12-28 13:21 | PN.HOSP_ITS ---
Reason for Visit Reason for Visit: Diagnoses Hypothyroidism, unspecified (12/23/23) Pure hypercholesterolemia, unspecified (12/23/23) Essential (primary) hypertension (12/23/23) Cerebral infarction due to unspecified occlusion or stenosis of right carotid arteries (12/23/23) Cerebral infarction, unspecified (12/23/23) Encounter for preprocedural cardiovascular examination (12/23/23) Subjective Subjective Patient seen at bedside this afternoon after his carotid endarterectomy procedure. Sitting up comfortably bed, conversing normally, no acute distress. Has a large bandage present on the right side of his neck, appears clean and dry. Patient states he has mild discomfort at the surgical site with movement of his head but denies any significant pain. Denies any lightheadedness or dizziness. Feels somewhat fatigued but otherwise denies any other acute concerns this time. Objective Data Objective Data Vital Signs: Vital Signs Temp Pulse Resp BP Pulse Ox O2 Del Method 98.1 F 70 18 127/73 H 99 Room Air 12/28/23 08:35 12/28/23 08:35 12/28/23 08:35 12/28/23 08:35 12/28/23 08:35 12/28/23 08:35 Oxygen Delivery Method Room Air Weight: 84.6 kg Body Mass Index (BMI) 26.1 Intake & Output: Intake and Output for Last 24 Hours 12/26/23 12/27/23 12/28/23 23:59 23:59 23:59 Intake Total 240 / 240 720 / 720 210 / 210 Output Total 1125 / 1125 1100 / 1250 550 / 550 Balance -885 / -885 -380 / -530 -340 / -340 Lab / Micro Data 12/28/23 05:40 12/28/23 05:40 Labs: Laboratory Results - last 24 hr 12/28/23 05:40: WBC 10.3, RBC 3.76 L, Hgb 11.8 L, Hct 35.6 L, MCV 94.7 H, MCH 31.4, MCHC 33.1, RDW Std Deviation 43.2, RDW Coeff of Velia 12.5, Plt Count 177, MPV 8.3, Immature Gran % (Auto) 0.400, Neut % (Auto) 60.8, Lymph % (Auto) 23.3, [place] % (Auto) 7.4, Eos % (Auto) 7.5 H, Baso % (Auto) 0.6, Absolute Neuts (auto) 6.3, Absolute Lymphs (auto) 2.40, Nucleated RBC % 0, PT 15.0 H, INR 1.2, Sodium 142, Potassium 4.3, Chloride 114 H, Carbon Dioxide 22.0, Anion Gap 6, BUN 26 H, Creatinine 1.25, Estim Creat Clear Calc 47.86, Est GFR (MDRD) Af Amer 71, Est GFR (MDRD) Non-Af 59 L, BUN/Creatinine Ratio 20.8 H, Glucose 98, Calcium 8.7 Physical Exam Const alert, oriented x3, no apparent distress and average body habitus Constitutional Narrative: Pleasant elderly male, laying comfortably in bed, conversing normally, no acute distress. General Appearance: cooperative and comfortable HEENT normocephalic, head/scalp atraumatic, hearing grossly normal bilaterally, nasal mucous membranes and turbinates normal and moist oral mucous membranes Eyes PERRL, EOMs intact bilaterally and conjunctivae normal Neck full ROM, no lymphadenopathy and supple Neck Narrative: Bandage present on right-sided neck. Lymph Lymphatic: no lymphadenopathy noted Chest inspection of chest normal Resp normal respiratory effort, normal air movement, no use of accessory muscles and clear to auscultation bilaterally Cardio regular rate, regular rhythm, no murmurs and peripheral pulses 2+ throughout GI normal to inspection, nondistended, normoactive bowel sounds, soft to palpation, non-tender and non-distended Back/Spine normal ROM Extremity normal to inspection and no pedal edema Skin no rashes or lesions noted Neuro Neuro Narrative: Significant left arm weakness throughout, similar to previous. Left leg with mild weakness, stable. Speech: speech normal Psych mental status grossly normal Assessment & Plan Assessment/Plan (1) Acute stroke due to ischemia: PLAN: Plan Patient is an 83-year-old male who presented to [facility] ED on 12/23/2023 with acute onset of left facial droop, left upper extremity paralysis and left lower extremity weakness. 1. Acute CVA with left sided deficits; severe right internal carotid artery stenosis CT brain on admit nonacute. CTA head and neck showed severe atherosclerotic plaque formation of origin of right internal carotid artery with near complete occlusion, otherwise no abnormalities. NIHSS score of 11 on admit. Teleneurology evaluated, decision was made to administer tenecteplase in the ED and patient was admitted to the ICU. Echo 12/23 showed EF 60%, bubble study negative. Lipid panel with total cholesterol 134, LDL 59, HDL 36. MRI brain 12/24 showed acute ischemic focus in right basal ganglia. ? 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 S/p right carotid endarterectomy with Dr. Huynh on 12/28, patient tolerated procedure well. PT/OT/case management following, planning for discharge to inpatient rehab in the next few days. Continue home aspirin, Plavix, statin. 2. History of hypertension ? Initially on nicardipine drip with labetalol as needed after TNK adm inistration. Restarted home nifedipine and losartan on 12/25, BP has been stable. 3. Hypothyroidism ? TSH 5.4 on admit. Continue home Synthroid. Can consider medication titration in outpatient setting as needed. 4. Depression ? Continue home Celexa. DVT prophylaxis: SCDs CODE STATUS: DNR CCA, DNI Expected disposition: Inpatient rehab, 1-2 days Total clinical time spent by myself addressing the patient's medical issues, reviewing all the data, and collaborating with patient's care team: 25 minutes. Charges/Coding Visit Charges Inpatient E&M: 49374 [facility] Hosp L1
[2023-12-28] MEDS: Bupivacaine Mpf 0.5% 30 ML VIAL (13:37)
[2023-12-28] MEDS: Acetaminophen 325 MG Tablet 650 MG PO (17:43)
[2023-12-28] MEDS: Cefazolin 1 GM/50 ML BAG IV (19:55)
[2023-12-28] MEDS: Atorvastatin Calcium 80 MG Tablet PO (20:28)
[2023-12-29] VITALS (19 sets, daily range): BP systolic 94–143; BP diastolic 38–68; PULSE 45–61; RESP 12–19; TEMP 36.4–36.7; O2SAT 90–100; BMI 26.1; BMI 26.7
[2023-12-29 03:40] LABS: Absolute Lymphocyte Count 1.36 X10^3/uL (0.83-4.51); Basophil# 0.03 X10^3/uL; Basophil% 0.3 % (0-1); Eosinophil# 0.03 X10^3/uL; Eosinophils% 0.3 % (0-5); Hematocrit 32.5 % (40-54); Hemoglobin 10.9 g/dL (13.0-16.5); Lymphocyte # 1.36 X10^3/ul (0.83-4.51); Mean Corp Hgb Conc 33.5 g/dL (32-36); Mean Corpuscular Hgb 31.1 pg (27.0-32.0); Mean Corpuscular Volume 92.6 fL (80-94); Mean Platelet Vol. 8.4 fl (6.2-12.0); Monocyte# 0.85 X10^3/uL; Monocyte% 7.5 % (0-10); NRBC Flagged by Analyzer 0 % (0-5); Neutrophil # 8.99 X10^3/uL (2.7-7.7); Neutrophil % 79.5 % (47-70); Platelet Count 163 K/mm3 (150-450); RBC Distribution Width CV 12.5 % (11.6-14.6); RBC Distribution Width SD 42.5 fl (35.1-43.9); Red Blood Count 3.51 M/mm3 (4.6-6.2); White Blood Count 11.3 K/mm3 (4.4-11.0)
[2023-12-29 03:53] LABS: Anion Gap 5 (5-15); BUN 31 mg/dL (7-18); BUN/Creat Ratio 23.5 RATIO (10-20); Calcium,Total 8.8 mg/dL (8.5-10.1); Chloride 112 mmol/L (98-107); Creatinine, Serum 1.32 mg/dL (0.70-1.30); EST Glomerular Filtration Rate 55 mL/min (>60); Est Glom Filt Rate - Afr Amer 67 mL/min (>60); Estimated Creatinine Clearance 45.32 ml/min; Glucose 116 mg/dL (74-106); Potassium 4.8 mmol/L (3.5-5.1); Sodium Level 141 mmol/L (136-145)
[2023-12-29] MEDS: Cefazolin 1 GM/50 ML BAG IV (03:54)
[2023-12-29] MEDS: Levothyroxine 50 MCG Tablet PO (03:55)
[2023-12-29] MEDS: Citalopram 20 MG Tablet PO (08:21)
[2023-12-29] MEDS: Losartan Potassium 50 MG Tablet PO (08:21)
[2023-12-29] MEDS: Clopidogrel Bisulfate 75 MG Tablet PO (08:21)
[2023-12-29] MEDS: NIFEdipine 60 MG Tablet PO (08:21)
[2023-12-29] MEDS: Aspirin 81 MG TAB.CHEW PO (08:21)
--- NOTE | 2023-12-29 08:36 | PN.SURG_ITS ---
Subjective Subjective Patient is seen resting comfortably in bed this morning. He tolerated the operation well yesterday. Postoperatively, he initially had some increased LLE weakness but this has since improved and he is at his pre-operative baseline neurologically. He has remained hemodynamically stable. He reports mild, expected pain at the operative site. He denies unilateral headache, hoarseness, difficulty speaking/swallowing. He has been voiding without difficulty. Objective Data Objective Data Vital Signs: Vital Signs Temp Pulse Resp BP Pulse Ox O2 Del Method 97.9 F 48 L 16 126/54 H 100 Room Air 12/29/23 08:00 12/29/23 08:00 12/29/23 08:00 12/29/23 08:00 12/29/23 08:00 12/29/23 08:00 Oxygen Delivery Method Room Air Weight: 190 lb 14.725 oz Body Mass Index (BMI) 26.7 Intake & Output: Intake and Output for Last 24 Hours 12/27/23 12/28/23 12/29/23 23:59 23:59 23:59 Intake Total 720 / 720 1640 / 1640 50 / 50 Output Total 1100 / 1250 1185 / 1185 235 / 235 Balance -380 / -530 455 / 455 -185 / -185 Lab / Micro Data 12/29/23 03:20 12/29/23 03:20 Labs: Laboratory Results - last 24 hr 12/28/23 05:40: PT 15.0 H, INR 1.2 12/29/23 03:20: WBC 11.3 H, RBC 3.51 L, Hgb 10.9 L, Hct 32.5 L, MCV 92.6, MCH 31.1, MCHC 33.5, RDW Std Deviation 42.5, RDW Coeff of Velia 12.5, Plt Count 163, MPV 8.4, Immature Gran % (Auto) 0.400, Neut % (Auto) 79.5 H, Lymph % (Auto) 12.0 L, [place] % (Auto) 7.5, Eos % (Auto) 0.3, Baso % (Auto) 0.3, Absolute Neuts (auto) 9.0 H, Absolute Lymphs (auto) 1.36, Nucleated RBC % 0, Sodium 141, Potassium 4.8, Chloride 112 H, Carbon Dioxide 24.0, Anion Gap 5, BUN 31 H, Creatinine 1.32 H, Estim Creat Clear Calc 45.32, Est GFR (MDRD) Af Amer 67, Est GFR (MDRD) Non- Af 55 L, BUN/Creatinine Ratio 23.5 H, Glucose 116 H, Calcium 8.8 Physical Exam Const oriented x3 and no apparent distress HEENT normocephalic, head/scalp atraumatic, hearing grossly normal bilaterally, external ears normal and external nose normal Eyes EOMs intact bilaterally General Eye: normal appearance of both eyes Neck Neck Narrative: R neck incision site with surgical glue intact. Mild swelling, minimal ecchymosis. No erythema, drainage. ARGELIA drain intact with minimal output. Resp normal respiratory effort Cardio regular rate and regular rhythm Extremity no clubbing, cyanosis or edema Skin no rashes or lesions noted Trauma: no lacerations or abrasions Neuro oriented x3 Neuro Narrative: LUE flaccid LLE with mild weakness compared to RLE, stable Speech: speech normal Assessment & Plan Assessment/Plan (1) Stenosis of right internal carotid artery with cerebral infarction: PLAN: Plan He is POD#1 from R CEA on 12/28/23. Incision site is satisfactory in appearance. ARGELIA drain was removed without issue. Surgical site is protected with surgical glue, okay to remain open to air. The site of the ARGELIA drain is covered with a small bandage, this may be removed tomorrow. He should not lift more than 20 pounds for 3 weeks. Otherwise, he may proceed with activity as tolerated with PT/OT. Discharge planning as per primary team, current plan is for acute rehab. Will coordinate outpatient follow-up pending this placement, typically 3-4 weeks post-op.
--- NOTE | 2023-12-29 11:43 | CASEMGMT ---
Social Work PT/OT notes in for today, SW let Monica in rehab know, she will start precert. SHAKIRA Rocha
--- NOTE | 2023-12-29 12:17 | PCM.PN.HOSP ---
Reason for Visit Reason for Visit: Diagnoses Hypothyroidism, unspecified (12/23/23) Pure hypercholesterolemia, unspecified (12/23/23) Essential (primary) hypertension (12/23/23) Cerebral infarction due to unspecified occlusion or stenosis of right carotid arteries (12/23/23) Cerebral infarction, unspecified (12/23/23) Encounter for preprocedural cardiovascular examination (12/23/23) Subjective Subjective No acute events overnight. Patient seen at bedside this morning. Sitting comfortably in bedside chair, conversing normally, no acute distress. Bandage removed on right side of neck this morning, incision appears to be healing well. Patient denies any pain or discomfort at incision site. Patient is anxious to continue to get up and moving and is looking forward to going to inpatient rehab soon. No other acute concerns this time. Objective Data Objective Data Vital Signs: Vital Signs Temp Pulse Resp BP Pulse Ox O2 Del Method 97.9 F 61 19 H 123/60 H 95 Room Air 12/29/23 08:00 12/29/23 11:00 12/29/23 11:00 12/29/23 11:00 12/29/23 11:00 12/29/23 11:00 Oxygen Delivery Method Room Air Weight: 86.6 kg Body Mass Index (BMI) 26.7 Intake & Output: Intake and Output for Last 24 Hours 12/27/23 12/28/23 12/29/23 23:59 23:59 23:59 Intake Total 720 / 720 1640 / 1640 330 / 330 Output Total 1100 / 1250 1185 / 1185 585 / 585 Balance -380 / -530 455 / 455 -255 / -255 Lab / Micro Data 12/29/23 03:20 12/29/23 03:20 Labs: Laboratory Results - last 24 hr 12/29/23 03:20: WBC 11.3 H, RBC 3.51 L, Hgb 10.9 L, Hct 32.5 L, MCV 92.6, MCH 31.1, MCHC 33.5, RDW Std Deviation 42.5, RDW Coeff of Velia 12.5, Plt Count 163, MPV 8.4, Immature Gran % (Auto) 0.400, Neut % (Auto) 79.5 H, Lymph % (Auto) 12.0 L, [place] % (Auto) 7.5, Eos % (Auto) 0.3, Baso % (Auto) 0.3, Absolute Neuts (auto) 9.0 H, Absolute Lymphs (auto) 1.36, Nucleated RBC % 0, Sodium 141, Potassium 4.8, Chloride 112 H, Carbon Dioxide 24.0, Anion Gap 5, BUN 31 H, Creatinine 1.32 H, Estim Creat Clear Calc 45.32, Est GFR (MDRD) Af Amer 67, Est GFR (MDRD) Non-Af 55 L, BUN/Creatinine Ratio 23.5 H, Glucose 116 H, Calcium 8.8 Physical Exam Const alert, oriented x3, no apparent distress and average body habitus Constitutional Narrative: Pleasant elderly male, sitting comfortably in bedside chair, conversing normally, no acute distress. General Appearance: cooperative and comfortable HEENT normocephalic, head/scalp atraumatic, hearing grossly normal bilaterally, nasal mucous membranes and turbinates normal and moist oral mucous membranes Eyes PERRL, EOMs intact bilaterally and conjunctivae normal Neck full ROM, no lymphadenopathy and supple Neck Narrative: Large incision noted on right side of neck, appears to be healing well. Lymph Lymphatic: no lymphadenopathy noted Chest inspection of chest normal Resp normal respiratory effort, normal air movement, no use of accessory muscles and clear to auscultation bilaterally Cardio regular rate, regular rhythm, no murmurs and peripheral pulses 2+ throughout GI normal to inspection, nondistended, normoactive bowel sounds, soft to palpation, non-tender and non-distended Back/Spine normal ROM Extremity normal to inspection and no pedal edema Skin no rashes or lesions noted Neuro Neuro Narrative: Significant left arm weakness throughout, similar to previous. Left leg with mild weakness, stable. Speech: speech normal Psych mental status grossly normal Assessment & Plan Assessment/Plan (1) Acute stroke due to ischemia: PLAN: Plan Patient is an 83-year-old male who presented to [facility] ED on 12/23/2023 with acute onset of left facial droop, left upper extremity paralysis and left lower extremity weakness. 1. Acute CVA with left sided deficits; severe right internal carotid artery stenosis CT brain on admit nonacute. CTA head and neck showed severe atherosclerotic plaque formation of origin of right internal carotid artery with near complete occlusion, otherwise no abnormalities. NIHSS score of 11 on admit. Teleneurology evaluated, decision was made to administer tenecteplase in the ED and patient was admitted to the ICU. Echo 12/23 showed EF 60%, bubble study negative. Lipid panel with total cholesterol 134, LDL 59, HDL 36. MRI brain 12/24 showed acute ischemic focus in right basal ganglia. ? Kitchen Stewardess and teleneurology followed. Vascular surgery following. S/p right carotid endarterectomy with Dr. Huynh on 12/28. PT/OT/case management following, planning for discharge to inpatient rehab in the next few days. Continue home aspirin, Plavix, statin. 2. History of hypertension ? Initially on nicardipine drip with labetalol as needed after TNK administration. Restarted home nifedipine and losartan on 12/25, BP has been stable. 3. Hypothyroidism ? TSH 5.4 on admit. Continue home Synthroid. Can consider medication titration in outpatient setting as needed. 4. Depression ? Continue home Celexa. DVT prophylaxis: SCDs CODE STATUS: DNR CCA, DNI Expected disposition: Inpatient rehab, 1-2 days Total clinical time spent by myself addressing the patient's medical issues, reviewing all the data, and collaborating with patient's care team: 25 minutes. Charges/Coding Visit Charges Inpatient E&M: 05246 [facility] Hosp L1
[2023-12-29 15:30] LABS: ACT Activated Clotting Time 152 sec (74-137)
[2023-12-29 15:31] LABS: ACT Activated Clotting Time 293 sec (74-137)
[2023-12-29 15:49] LABS: ACT Activated Clotting Time 271 sec (74-137)
[2023-12-29] MEDS: Acetaminophen 325 MG Tablet 650 MG PO (17:44)
[2023-12-29] MEDS: Senna/Docusate Sodium 1 Tablet 2 TABLET PO (20:24)
[2023-12-29] MEDS: Atorvastatin Calcium 80 MG Tablet PO (20:24)
[2023-12-29] MEDS: 0.9% Saline Lock 10 ML Syringe IV (20:24)
[2023-12-30] VITALS: BP 108/53; PULSE 55; RESP 17; TEMP 36.6; O2SAT 98
[2023-12-30] MEDS: Acetaminophen 325 MG Tablet 650 MG PO (00:10)
[2023-12-30 00:48] VITALS: BMI 26.7
[2023-12-30 04:06] VITALS: BP 129/65; PULSE 58; RESP 18; TEMP 36.6; O2SAT 97
[2023-12-30] MEDS: Levothyroxine 50 MCG Tablet PO (04:24)
[2023-12-30 04:35] VITALS: BMI 26.6
[2023-12-30 06:05] VITALS: PULSE 56
[2023-12-30 08:00] VITALS: BP 114/55; PULSE 51; RESP 16; TEMP 36.5; O2SAT 98
[2023-12-30] MEDS: Aspirin 81 MG TAB.CHEW PO (09:05)
[2023-12-30] MEDS: Losartan Potassium 50 MG Tablet PO (09:05)
[2023-12-30] MEDS: Clopidogrel Bisulfate 75 MG Tablet PO (09:05)
[2023-12-30] MEDS: NIFEdipine 60 MG Tablet PO (09:06)
[2023-12-30] MEDS: Citalopram 20 MG Tablet PO (09:06)
--- NOTE | 2023-12-30 10:30 | DCINST_ITS ---
Discharge Instructions Diet Discharge Diet: Low fat / Low cholesterol Activity Discharge Activity: Return to Normal Activity Dressing / Incision Call your doctor if you observe: Fever of 101 or Higher, Shortness of breath, Dizziness, Fainting spells, Swelling in the ankles, Chest pain and Increased palpitations (irregular heartbeat) Follow Up Care Test Results: Test results from this visit will be discussed in further detail at your follow- up appointment, if applicable. Discharge Plan Admission Admit Date/Time: 12/23/23 14:11 Attending Provider: Kevin Powell Primary Care Provider: Dani Fallon Consulting Providers: Kiana Georges; Isi Ward; Osvaldo Benitez; Aldair Tate; Jacek Hardin; Fiordaliza Rivers; Pako Inman; Isai Austin; Zuhair Coronado; Eveline Kerns; Jeff Laura; Gary Olivier; Lia Baltazar; Matt Farah; Billy Lomas; Mohan Rae; David Caceres; Sven Callaway; Ramesy Medina STRATEGIC PLANNING SPECIALIST; Isi Govea STRATEGIC PLANNING SPECIALIST; Zoe Urias; Mani Spivey; Vladimir Cox; Karie Mcnally; Karlee Méndez; Salena Herrera; Jesus Mckee; Mckayla Nevarez; Markie Roberto; Agustin Christina; Rola Rueda; Luis Craig; Jessica Oswald; Evelyne Dykes; Neida Miles; Prosper Ragsdale; Jose Campbell; Luis Miguel Robin; Abiola Worrell; Enzo Gómez; Zuhair Huynh; Shreyas Jean Baptiste Discharge Orders/Prescriptions Prescriptions: Continued aspirin 81 mg tablet,chewable 1 tab PO DAILY atorvastatin 80 mg tablet 80 mg PO QHS citalopram [Celexa] 40 mg tablet 20 mg PO DAILY clopidogrel 75 mg tablet 75 mg PO DAILY levothyroxine 50 mcg tablet 50 mcg PO DAILY losartan 50 mg tablet 50 mg PO DAILY multivitamin Tablet 1 tab PO DAILY nifedipine 60 mg tablet extended release 24hr 60 mg PO DAILY PreserVision AREDS-2 250-90-40-1 mg capsule 1 tab PO BID acetaminophen 500 mg capsule 500 mg PO BID docusate sodium [Colace] 100 mg capsule 100 mg PO BID Referrals / Follow Up: Dani Fallon MD [Primary Care Provider] - Care Physician,No Primary [Non-Staff] - Disposition Disposition (needs filled in before D/C Order can be placed): Inpatient Rehab Unit/Facility
[2023-12-30 10:56] VITALS: BMI 26.6
--- NOTE | 2023-12-30 11:01 | CASEMGMT ---
Social Work Precert has been obtained for pt to go to Inpatient Rehab today. Physician updated and pt is ready for dc today. SW met with pt and updated. RN notified. Disposition: Inpatient Rehab Unit [facility] El[facility]
--- NOTE | 2023-12-30 17:21 | DS.PCM_ITS ---
Providers Date of Admission: 12/23/23 Primary Care Physician: Dr. Dani Fallon MD Consultations 12/23/23 13:18 Consult: Professional Services Specialist / Pulmonary Medicine Routine Consulting Provider: Pulmonary Medicine elana ChaudharyPontiac Reason for Consult: stroke for thrombolytic administration EMERGENT Consult: Yes Notified: Yes Date Notified: 12/23/23 Time Notified: 13:18 Method of Notification: Text Comments:: Consult may be done in ED or ICU 12/23/23 15:19 Consult: Professional Services Specialist / Pulmonary Medicine Routine Consulting Provider: Pulmonary Medicine elana ChaudharyAjay Reason for Consult: stroke for thrombolytic EMERGENT Consult: Yes Notified: Yes Date Notified: 12/23/23 Time Notified: 14:14 Method of Notification: Text Consult: Tele-Neurology Routine Consulting Provider: [facility] Reason for Consult: stroke for thrombolytic EMERGENT Consult: No Notified: Yes Date Notified: 12/23/23 Time Notified: 14:14 Method of Notification: Text Nursing Unit Staff Notify [facility] of Tele-Neurology Consult: Yes Consult: Vascular Surgery Routine Consulting Provider: Zuhair Huynh Reason for Consult: s/p stroke, R ICA stenosis EMERGENT Consult: No Notified: Yes Date Notified: 12/23/23 Time Notified: 14:29 Method of Notification: Text 12/24/23 16:20 Consult: Cardiology Routine Consulting Provider: [facility] Reason for Consult: preoperative cardiac optimization EMERGENT Consult: No Notified: Yes Date Notified: 12/25/23 Time Notified: 07:40 Method of Notification: Verbal Comments:: Planning for R carotid endarterectomy on 12/28/23 Reason For Visit: ACUTE RIGHT HEMISPHERIC STROKE Diagnosis Discharge Diagnosis (1) Acute stroke due to ischemia: Status: Acute Code(s): I63.9 - Cerebral infarction, unspecified Medications at Discharge Home Medications acetaminophen 500 mg capsule 500 mg PO BID pain 12/23/23 aspirin 81 mg chewable tablet 1 tab PO DAILY blood thinner 12/23/23 atorvastatin 80 mg tablet 80 mg PO QHS cholesterol 12/23/23 citalopram 40 mg tablet (Celexa) 20 mg PO DAILY depression 12/23/23 clopidogrel 75 mg tablet 75 mg PO DAILY blood thinner 12/23/23 docusate sodium 100 mg capsule (Colace) 100 mg PO BID constipation 12/23/23 levothyroxine 50 mcg tablet 50 mcg PO DAILY thyroid 12/23/23 losartan 50 mg tablet 50 mg PO DAILY blood pressure 12/23/23 multivitamin 1 tab PO DAILY vitamin 12/23/23 nifedipine 60 mg tablet,extended release 24 hr 60 mg PO DAILY blood pressur 12/23/23 vit C 250 mg-vit E 90 mg-zinc 40 mg-copper 1 [id number] capsule (PreserVision AREDS-2) 1 tab PO BID eye health 12/23/23 Hospital Course Operations - ( right carotid endarterectomy) Procedures 2-D Echocardiogram Summary of Care Provided Minutes Spent on Discharge: 36 Hospital Course: Per HPI: MARIO PROCTOR, is an 83-year-old male history of hypertension, hypothyroidism, previous CVA x2 who presented to [facility] ED 12/23/2023 with left facial droop, left upper extremity paralysis and difficulty w/ fluency and left lower extremity weakness that started at 1220. Patient arrived to hospital a stroke alert and had NIH of 11 and was deemed a candidate for TNK, CT head obtained with no bleed and TNK administered, also had CTA which showed right internal carotid stenosis and no other abnormalities. Hospitalist contacted for admission to ICU for acute CVA status post TNK. Patient evaluated bedside with brother present, reportedly has a history of strokes and after his last stroke 1 year ago has had problems with his vision and no longer drives but denied any other chronic deficits. Today had been in his usual health until he suddenly could not move his left arm and had the left lower extremity weakness and some difficulty with fluency, symptoms are rapidly improving after TNK administration and while he still has some weakness and movement difficulty in left hand but is improving. Denies any headache or changes in vision acutely at this time but does report the left back part of his neck feels like he strained it slightly. ROS otherwise negative. Hospital course: 1. Acute CVA with left-sided deficits with severe right internal carotid artery stenosis status post carotid endarterectomy on 12/28/2023/HTN?83-year-old male presented to the hospital for left facial droop as well as left upper extremity paralysis and left lower extremity weakness. He was candidate for TNK and she was given and then transition to the ICU for monitoring overnight. He is on hig h-dose statin as well as dual antiplatelets and was seen by neurology. MRI demonstrated CVA in the right basal ganglia and so we proceeded with a carotid endarterectomy after he was found to have severe stenosis, he tolerated the procedure well. Disposition was discussed and we proceeded with discharge to the inpatient rehab unit. His deficits have improved though he still has significant left upper weakness. Will continue with losartan on discharge as well as nifedipine. 2. Hypothyroidism, depression are chronic medical conditions which complicate his care. His home medications were continued where appropriate Physical Exam Narrative General: Alert, Oriented x3, Cooperative, No apparent distress HEENT: Atraumatic, PERRLA, EOMI, Normocephalic Oral: Moist Mucosa Neck: Supple, No JVD Lungs: Clear to auscultation, Normal air movement, No rhonchi, No wheeze, No rales Cardiovascular: Regular rate, Regular Rhythm, Normal S1, Normal S2, No murmurs Abdomen: Soft, Non Tender, Non-Distended, No Hepato-splenomegaly Extremities: No edema, Capillary Refill Less than 3 Seconds Skin: No rashes, No breakdown Musculoskeletal: No Tenderness to Palpation of Joints or Extremities Neurological: Significant weakness in his left upper extremity, left leg with mild weakness, Sensory exam intact to light touch and pain Psych/Mental Status: Normal Affect, Appropriate Weight / BMI Weight Weight: 190 lb 11.198 oz Body Mass Index (BMI) 26.6 ABG / Lab / Microbiology Data 12/29/23 03:20 12/29/23 03:20 D/C Instructions Discharge Diet: Low fat / Low cholesterol Call your doctor if you observe: Fever of 101 or Higher, Shortness of breath, Dizziness, Fainting spells, Swelling in the ankles, Chest pain and Increased palpitations (irregular heartbeat) Meaningful Use Info Meaningful Use Diagnoses (Choose all that apply): None applicable Discharge Plan Admission Admit Date/Time: 12/23/23 14:11 Attending Provider: Kevin Powell Primary Care Provider: Dani Fallon Consulting Providers: Kiana Georges; Isi Ward; Osvaldo Benitez; Aldair Tate; Jacek Hardin; Fiordaliza Rivers; Pako Inman; Isai Austin; Zuhair Coronado; Eveline Kerns; Jeff Laura; Gary Olivier; Lia Baltazar; Matt Farah; Billy Lomas; Mohan Rae; David Caceres; Sven Callaway; Mario Medina SHORT FILLER BUNCH MACHINE OPERATOR; Isi Govea NP; Zoe Urias; Mani Spivey; Vladimir Cox; Karie Mcnally; Karlee Méndez; Salena Herrera; Jesus Mckee; Mckayla Nevarez; Markie Roberto; Agustin Christina; Rola Rueda; Luis Craig; Jessica Oswald; Evelyne Dykes; Neida Miles; Prosper Ragsdale; Jose Campbell; Luis Miguel Robin; Abiola Worrell; Enzo Gómez; Zuhair Huynh; Shreyas Jean Baptiste Discharge Orders/Prescriptions Prescriptions: Continued aspirin 81 mg tablet,chewable 1 tab PO DAILY atorvastatin 80 mg tablet 80 mg PO QHS citalopram [Celexa] 40 mg tablet 20 mg PO DAILY clopidogrel 75 mg tablet 75 mg PO DAILY levothyroxine 50 mcg tablet 50 mcg PO DAILY losartan 50 mg tablet 50 mg PO DAILY multivitamin Tablet 1 tab PO DAILY nifedipine 60 mg tablet extended release 24hr 60 mg PO DAILY PreserVision AREDS-2 250-90-40-1 mg capsule 1 tab PO BID acetaminophen 500 mg capsule 500 mg PO BID docusate sodium [Colace] 100 mg capsule 100 mg PO BID Referrals / Follow Up: Dani Fallon MD [Primary Care Provider] - Care Physician,No Primary [Non-Staff] - Disposition Disposition (needs filled in before D/C Order can be placed): Inpatient Rehab Unit/Facility Charges/Coding Visit Charges Inpatient E&M: 11084 Disch Hosp >30min
[2024-01-22 19:15] LABS: ACT Activated Clotting Time 293 sec (74-137)
[2024-01-22 19:17] LABS: ACT Activated Clotting Time 271 sec (74-137)
== END 2023-12-30 11:40 | DRG 38 ==
LOC: ED 14:10 → ICU 14:34
PROVIDERS: Hospitalist; Surgery Trauma Surgery; Admitting Provider Internal Medicine; Emergency Provider Emergency Medicine; PCP Family Medicine; Visit Provider Family Medicine
PROC: 03CK0ZZ Extirpation of Matter from Right Internal Carotid Artery, Open Approach (ICD-10-PCS; CPT 35301; principal; 2023-12-28 11:15)
DX: I63.231 Cerebral infarction due to unspecified occlusion or stenosis of right carotid arteries (principal); G81.94 Hemiplegia, unspecified affecting left nondominant side; E03.9 Hypothyroidism, unspecified; I10 Essential (primary) hypertension; F32.A Depression, unspecified; I69.398 Other sequelae of cerebral infarction; E78.00 Pure hypercholesterolemia, unspecified; R47.01 Aphasia; H53.8 Other visual disturbances; R29.711 NIHSS score 11; R29.810 Facial weakness; Z66 Do not resuscitate; Z79.02 Long term (current) use of antithrombotics/antiplatelets; Z79.82 Long term (current) use of aspirin; Z79.899 Other long term (current) drug therapy
CPT/HCPCS: 70450; 70496; 70498; 70551; 71045; 80048; 80061; 84443; 84484; 85025; 85027; 85347; 85610; 85730; 88304; 88311; 92507; 92523; 93005; 93306; 94668; 97110; 97116; 97162; 97166; 97530; 97535; 99252; 99285; A4648; J3101; J7030; J7120; Q9957; A4216; C8929; G0463; J2405; J3490

== ENCOUNTER 2023-12-30 12:00 | Inpatient (IN) | payer MEDICARE, SELFPAY ==
[2023-12-30 12:16] VITALS: BP 114/51; PULSE 59; RESP 16; TEMP 36.7; O2SAT 96
--- NOTE | 2023-12-30 13:01 | EX.PCM.HP.RE ---
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 He was seen in the Ed at [facility] and admitted to the ICU on the hospitalist service. TNK was given in the ED. CTA of the H&N showed high-grade stenosis at the origin of the right internal carotid artery. Transthoracic echocardiogram showed a normal ejection fraction of 60%. It was a poor study due to suboptimal images. The bubble contrast study was uninterpretable. MRI on 12/24/2023 showed chronic microvascular changes and acute ischemic focus in the right basal ganglia. There was encephalomalacia in the high right parietal and left occipital lobes. Consult was obtained with vascular surgery regarding severe right carotid stenosis. He was seen by Dr. Zuhair Huynh on 12/24/2023. Dr. Huynh recommended a right carotid endarterectomy in 4 to 10 days post stroke. He was taken to surgery on 12/28/2023 for a right carotid endarterectomy. Postoperatively he had increased left lower extremity weakness but this improved over the next 24 hours and prior to discharge from the acute side of the hospital he was hemodynamically stable and at his baseline neurologically. While in the hospital he was evaluated by PT/OT/ST and admission to acute rehab at discharge from the hospital was recommended. Mr. Bishop was transported to the acute inpatient rehab unit at [facility] on 12/30/2023 for 3 hours of therapy daily to restore function/independence at or near his level prior to this third stroke. He should not lift more than 20 pounds for 3 weeks but otherwise has no activity restrictions. The operative site is covered with surgical glue and does not require bandage. He is to follow-up with Dr. Huynh in 3 to 4 weeks in the office. His most recent lab was on 12/29/2023 and I personally reviewed the results. White blood cell count is elevated at 11.3 with 79.5% neutrophils and no increase in immature granulocytes. Hemoglobin is 10.9, down from 11.8 on 12/28/2023. Platelets are within normal limits. Sodium is 141 and the potassium is 4.8. The BUN is 31 and the creatinine is 1.32 which is up from 1.25 on 12/28/2023. Baseline creatinine is unknown at this time. The creatinine at admission to the emergency room was 1.57. Prior to this most recent stroke he was ambulating without an assistive device and was independent with his basic activities of daily living. He exercises regularly in the gym at [employer] [facility] Medical History (Updated 01/01/24 @ 16:[address] Ely Wisdom, ) Arthritis of right hand Chronic renal failure Depression HLD (hyperlipidemia) Hyperkalemia Hypertension Hypothyroid Lumbosacral radiculitis Prostate CA Stroke/cerebrovascular accident Home Medications acetaminophen 500 mg capsule 500 mg PO BID pain 12/23/23 [History Last Taken Unknown] aspirin 81 mg chewable tablet 1 tab PO DAILY blood thinner 12/23/23 [History Last Taken 12/30/23] atorvastatin 80 mg tablet 80 mg PO QHS cholesterol 12/23/23 [History Last Taken 12/29/23] citalopram 40 mg tablet (Celexa) 20 mg PO DAILY depression 12/23/23 [History Last Taken 12/30/23] clopidogrel 75 mg tablet 75 mg PO DAILY blood thinner 12/23/23 [History Last Taken 12/30/23] docusate sodium 100 mg capsule (Colace) 100 mg PO BID constipation 12/23/23 [History Last Taken Unknown] levothyroxine 50 mcg tablet 50 mcg PO DAILY thyroid 12/23/23 [History Last Taken 12/30/23] losartan 50 mg tablet 50 mg PO DAILY blood pressure 12/23/23 [History Last Taken 12/30/23] multivitamin 1 tab PO DAILY vitamin 12/23/23 [History Last Taken 12/29/23] nifedipine 60 mg tablet,extended release 24 hr 60 mg PO DAILY blood pressur 12/23/23 [History Last Taken 12/30/23] vit C 250 mg-vit E 90 mg-zinc 40 mg-copper 1 [id number] capsule (PreserVision AREDS-2) 1 tab PO BID eye health 12/23/23 [History Last Taken Unknown] Allergy/AdvReac Type Severity Reaction Status Date / Time No Known Allergies Allergy Verified 12/23/23 14:24 Family History (Updated 01/01/24 @ 16:[address] Ely Wisdom DO) Father Cancer Mother CVA (cerebral vascular accident) Sister CVA (cerebral vascular accident) Brother Hyperlipidemia Social History household members: family Smoking Status: Never smoker ROS Constitutional Constitutional: Reports anorexia and weakness; Denies chills, fatigue or fever(s) Eyes Eyes: Denies change in vision, double vision, eye pain or itchy eyes ENT HEENT: Denies dysphagia, headache(s), nasal discharge or sore throat Cardiovascular Cardiovascular: Denies chest pain, edema, palpitations or paroxysmal nocturnal dyspnea Respiratory/Chest Respiratory/Chest: Denies cough, shortness of breath at rest or shortness of breath with exertion Gastrointestinal Gastrointestinal: Denies abdominal pain, constipation, diarrhea, nausea or vomiting Genitourinary Genitourinary: Denies dysuria, urinary incontinence or urinary urgency Musculoskeletal Musculoskeletal: Reports muscle weakness; Denies back pain, extremity pain or neck pain Integumentary Integumentary: Reports other Details: He has a surgical incision in the right neck from recent right carotid endarterectomy. ; Denies jaundice, pruritus or rash Neurologic Neurologic: Reports focal weakness and lack of coordination; Denies headache(s) or numbness Psychiatric Psychiatric: Reports depression and other Details: tells me that he is sleeping pretty well. He is c/o decreased appetite since the stroke ; Denies anxiety Endocrine Endocrinology: Denies change in body appearance Hematologic/Lymphatic Hematologic/Lymphatic: Reports anemia Vital Signs Vital Signs Vital Signs: 12/30/23 12:16 Temperature 98.1 F Temperature Source Temporal Pulse Rate 59 L Respiratory Rate 16 Blood Pressure 114/51 L Blood Pressure Mean 72 Blood Pressure Source Monitor Blood Pressure Position Semi-Fowlers Blood Pressure Location Right Arm Pulse Ox 96 Oxygen Delivery Method Room Air Weight Weight: 187 lb 9.6 oz Body Mass Index (BMI) 0.0 Indicators for Scoring Admitted with or Primary Diagnosis of CVA/Stroke: Yes Hx of CVA/Stroke: Yes Modified [place] Score MRS Score at time of Evaluation: 4-Moderate/severe disability NIHSS NIHSS 1a. Level of Consciousness: Alert; keenly responsive 1b. LOC Questions: Answers one question correctly. (he could tell me his age but, not the month. ) 1c. LOC Commands: Performs both tasks correctly. 2. Best Gaze: Normal 3. Visual: Partial hemianopia 4. Facial Palsy: Minor paralysis (flattened nasolabial fold, asymmetry on smiling) 5a. Left Arm: No effort against gravity; arm falls (he was able to move the L forearm a little but, no lift off the bed. 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 ) 5b. Right Arm: No drift; arm holds 90 (or 45) degrees for full 10 seconds 6a. Left Leg: No drift; leg holds 30-degree position for full 5 seconds 6b. Right Leg: No drift; leg holds 30-degree position for full 5 seconds 7. Limb Ataxia: Absent 8. Sensory: Normal; no sensory loss 9. Best Language: [id number] aphasia; (not sure if he has aphasia or if he has anomia and visual loss. Had a very difficult time reading words and phrases. He was able to name all of the objects 7/7 with no hesitation. ) 10. Dysarthria: Nagl-[id number] dysarthria; 11. Extinction and Inattention: No abnormality Total: 8 Stroke Questions Stroke Team Activated: No Physical Exam Const alert and no apparent distress Constitutional Narrative: Oriented to person and place today. Could not tell me the month and actually thought it was January. General Appearance: cooperative HEENT Mouth: dry mucous membranes Eyes PERRL and EOMs intact bilaterally Neck supple and no JVD General: trachea midline Resp normal respiratory effort and clear to auscultation bilaterally Resp Narrative: No conversational dyspnea. Effort and Inspection: Negative for tachypneic or respiratory distress Cardio Cardio Narrative: regular with frequent premature beats. GI normal to inspection, nondistended, normoactive bowel sounds, soft to palpation and non-tender GI Narrative: No guarding with palpation. No bruits appreciated. Extremity no calf tenderness General Extremity: Negative for clubbing, cyanosis or edema Skin no wounds Skin Narrative: th incision R neck is intact with no dehiscence, no Dc and no lynn-incisional erythema General Skin Exam: dry skin Rashes: no rashes Neuro Neuro Narrative: Left facial droop. Can not lift LUE against gravity but, has a very weak hand patient resource coordinator, a weak L should shrug and some side to side movement of the left wrist/forearm. 5/5 strength in the LLE. Good plantar flexion and dorsiflexion both LE's No ataxia. Can not check LUE for ataxia due to marked weakness and inability to lift the arm off the bed. No sensory loss and no extinction. He has quadrantopia - Left nasal and R tempoal in the upper quadrants. Psych cooperative Psych Narrative: Affect is down. Appetite is decreased. He is self-deprecating. Not anxious and not restless. He is talkative and is interacting well with the staff. Results Lab / Micro Data 12/31/23 05:47 12/31/23 05:47 Assessment & Plan Assessment/Plan (1) Debility: (2) Acute stroke due to ischemia: PLAN: R basal ganglia. (3) Stenosis of right internal carotid artery with cerebral infarction: (4) S/P carotid endarterectomy: PLAN: 12/28/[address] 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 Has been seen in the past by St. Has had 2 prior strokes..... Right parietal and left occipital. 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 (8) Muscle weakness of left upper extremity: (9) Normochromic normocytic anemia: PLAN: Etiology unknown. (10) Depression: PLAN: Acute exacerbation of chronic depression due to stroke. PLAN: Plan PLAN PT for gait stability OT for ADL's ST for evaluation Analgesics as needed Bowel protocol Fall precautions Assess for Anxiety/Depression GI prophylaxis -not necessary at this time. Patient denies epigastric pain, heartburn, nausea/vomiting. DVT prophylaxis with Lovenox 40 mg subcu daily - This was okayed with vascular surgery. Follow up with Dr. Fallon, Dr. 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 Wellbutrin lowers seizure threshold and one of the most common causes of seizure in the elderly is stroke (he has now had 3 CVA's) so we will hold Wellbutrin at this time. Increase the Lexapro to 15 mg daily. Obtain med list, problem list and lab for the past 6 [address] Fallon's office. Encourage increased fluid intake and recheck a BMP in a few days. 70 Minutes spent reviewing past diagnostic tests, lab results, vital sign trends, medical history, medications, all notes from recent acute hospital admission and ordering medications, examining the patient and completing documentation. Charges/Coding Visit Charges Inpatient E&M: 42004 Init Hosp L3
[2023-12-30] MEDS: Acetaminophen 500 MG Tablet PO ×2 (16:38→20:03)
[2023-12-30] MEDS: Enoxaparin 40 MG/0.4 ML Syringe SC (16:39)
[2023-12-30 17:06] VITALS: PULSE 51
[2023-12-30 20:00] VITALS: BP 108/58; PULSE 53; RESP 16; TEMP 36.8; O2SAT 96
[2023-12-30] MEDS: Multivitamin (Healthy Eyes) Capsule 1 CAP PO (20:33)
[2023-12-30] MEDS: Senna/Docusate Sodium 1 Tablet 2 TABLET PO (20:33)
[2023-12-30] MEDS: Atorvastatin Calcium 80 MG Tablet PO (20:33)
[2023-12-31] MEDS: Levothyroxine 50 MCG Tablet PO (04:52)
[2023-12-31] MEDS: Acetaminophen 500 MG Tablet PO ×2 (04:52→18:15)
[2023-12-31 06:12] LABS: Hematocrit 32.2 % (40-54); Hemoglobin 10.4 g/dL (13.0-16.5); Mean Corp Hgb Conc 32.3 g/dL (32-36); Mean Corpuscular Hgb 30.4 pg (27.0-32.0); Mean Corpuscular Volume 94.2 fL (80-94); Mean Platelet Vol. 8.5 fl (6.2-12.0); Platelet Count 155 K/mm3 (150-450); RBC Distribution Width CV 12.5 % (11.6-14.6); Red Blood Count 3.42 M/mm3 (4.6-6.2); White Blood Count 9.2 K/mm3 (4.4-11.0)
[2023-12-31 06:35] LABS: Anion Gap 3 (5-15); BUN 23 mg/dL (7-18); BUN/Creat Ratio 20.5 RATIO (10-20); Calcium,Total 9.6 mg/dL (8.5-10.1); Chloride 112 mmol/L (98-107); Creatinine, Serum 1.12 mg/dL (0.70-1.30); EST Glomerular Filtration Rate 67 mL/min (>60); Est Glom Filt Rate - Afr Amer 81 mL/min (>60); Estimated Creatinine Clearance 62.26 ml/min; Glucose 110 mg/dL (74-106); Magnesium 2.1 mg/dL (1.6-2.6); Phosphorus 3.3 mg/dL (2.5-4.9); Potassium 4.3 mmol/L (3.5-5.1); Sodium Level 140 mmol/L (136-145)
[2023-12-31] MEDS: Magnesium Hydroxide 30 ML UDC PO (06:51)
[2023-12-31 09:25] VITALS: BP 104/53; PULSE 62; RESP 16; TEMP 36.8; O2SAT 93
[2023-12-31] MEDS: Multivitamin (Healthy Eyes) Capsule 1 CAP PO ×2 (09:48→22:45)
[2023-12-31] MEDS: Multivitamins,Therapeutic Tablet 1 TABLET PO (09:48)
[2023-12-31] MEDS: Losartan Potassium 50 MG Tablet PO (09:48)
[2023-12-31] MEDS: Enoxaparin 40 MG/0.4 ML Syringe SC (09:48)
[2023-12-31] MEDS: Aspirin 81 MG TAB.CHEW PO (09:48)
[2023-12-31] MEDS: Senna/Docusate Sodium 1 Tablet 2 TABLET PO ×2 (09:49→22:45)
[2023-12-31] MEDS: Clopidogrel Bisulfate 75 MG Tablet PO (09:49)
[2023-12-31] MEDS: NIFEdipine 60 MG Tablet PO (09:49)
[2023-12-31] MEDS: Escitalopram Oxalate 10 MG Tablet PO (09:55)
[2023-12-31 12:32] VITALS: BMI 26.3
[2023-12-31] MEDS: Bisacodyl 10 MG Suppository RC (18:00)
--- NOTE | 2023-12-31 18:41 | REHABEVAL_ITS ---
Admission Information Primary Diagnosis:: Post stroke debility Status Changes from Prescreening?: No changes Identified Actual Problem List:: Skin Intergrity, Cognitve Impr/Memory Loss, Depression, Mobility Impaired, Self Care Deficit, Know.Dfct of Medicaitons, Fluid Change- Dehydration and Alteration-Leisure Activ. Potential Problem List:: DVT, Bleeding, Infection, UTI, Aspiration, Falls, Skin Integrity and Depression Risk of Complications DVT: LMWH and GENA Hose Bleeding: Monitor Lab Values, Nursing to Teach Precautions for anti-coagulation therapy., Wound, if applicable, to be assessed every shift. and Stroke patients assessed for lethargy or change in status. Infection: Clinical Staff to Monitor for S/S of infection: and S/S of infection include fever, redness, warmth, etc. Urinary Tract Infection: Monitor for frequency, burning, discomfort, or incontinence. and Nursing will obtain urine sample for urinalysis and C&S when ordered. Aspiration: Clinical staff will monitor for coughing, drooling, congestion., Speech will evaluate swallowing and dsyphasia. and Nursing will monitor patient swallowing during meals. Falls: Patient will be evaluated for Fall Precautions and Patient will be placed on Fall Precautions as indicated per protocol. Skin Breakdown: Nursing will assess skin daily using assessment tool. and Nursing will place on Skin Breakdown Precautions as indicated. Pain: Clinical staff will assess patient's pain level per protocol., Medications will be given, if needed, and the pain level reassessed. and Other methods: Massage, distraction, decrease stimulus, etc. used PRN. Plan of Care Patient requires physician specializing in physical medicine and rehab oversight to provide close medical supervision of rehab issues including: Pain Management, Sleep Problems, Bowel and Bladder, Medical and co-morbidity Management, DVT prophylaxis, Rehabilitation Leadership and Coordination of treatment team Patient needs Physical Therapy: For a minimum of 1 hour and At least 5 out of 7 days Patient needs Physical Therapy to improve:: Mobility, Strengthening, Transfers, Stretching, ROM, Endurance, Stairs, Gait and Balance Patient needs Occupational Therapy: For a minimum of 1 hour and At least 5 out of 7 days Patient needs Occupational Therapy to improve ADL's incl.: Eating, Grooming, Bathing, Dressing, Toileting, Toilet transfers, Community Reintegration, Higher functioning activities, Household tasks, Adaptive Equipment, Splinting and Other activities as determined Patient requires speech therapy: For a minimum of 1 hour and At least 5 out of 7 days Patient requires speech therapy for: Swallowing, Cognition, Language Skills and Compensatory Strategies Patient requires 24/ Rehabilitation Nursing for: Pain Issues, Identifying and preventing risk factors, Monitoring and reporting current medical conditions, Assisting with ambulation, transfer, and all ADL's, Teaching patients about disease process and medications, Family teaching, Providing safe environment, Bowel and Bladder Issues, Skin integrity and Medication Management Patient needs Slat Basket Maker Helper/ Case Management for: Discharge Planning, Arranging Home Equipment or Services and Family Interventions Patient needs Dietary and Nutrition Services for: Adequate Nutrition, Nutritional Supplements and Nutritional Education Goals Goals Patient will remain: free from falls Patient will perform eating at: MOD I level of assist. Patient will perform bed mobility at: MOD I level of assist. Patient will complete transfers from bed to chair at: MOD I level of assist. Patient will ambulate: - (350 feet with least restrictive device at standby assist on various surfaces.) Patient will complete upper body dressing at: - (Contact-guard assist) Patient will complete lower body dressing at: - (Contact-guard assist with adaptive equipment as needed) Patient will complete toilet transfer at: - (Contact-guard assist) Patient will complete toileting at: - (Contact-guard assist) Patient will perform bathing at: - (Contact-guard assist) Patient will complete grooming at: - (Set up while seated at the sink) Patient will achieve: - (1 curb step with least restrictive device at standby assist to allow access to his residence.) Patient will have pain level of: of 3 or less Patient's skin will: remain intact Patient will receive: adequate nutrition. Discharge Planning Pt Prognosis for Sig. Practical Improv. w/in Reasonable Time: Good Estimated Length of stay (days): 21 Anticipated D/C Destination: Shelter Facility Was Preadmission Assessment Accurate?: Yes
[2023-12-31 22:00] VITALS: BP 121/56; PULSE 80; RESP 17; TEMP 37.1; O2SAT 99; BMI 26.3
[2023-12-31] MEDS: Atorvastatin Calcium 80 MG Tablet PO (22:45)
[2024-01-01 05:00] VITALS: PULSE 83; RESP 16; O2SAT 98
[2024-01-01] MEDS: Levothyroxine 50 MCG Tablet PO (07:06)
[2024-01-01 07:58] VITALS: BP 136/58; PULSE 60; RESP 16; TEMP 37.3; O2SAT 95
[2024-01-01] MEDS: Clopidogrel Bisulfate 75 MG Tablet PO (09:03)
[2024-01-01] MEDS: Senna/Docusate Sodium 1 Tablet 2 TABLET PO ×2 (09:03→22:18)
[2024-01-01] MEDS: Acetaminophen 500 MG Tablet PO ×2 (09:03→18:34)
[2024-01-01] MEDS: Enoxaparin 40 MG/0.4 ML Syringe SC (09:03)
[2024-01-01] MEDS: Multivitamin (Healthy Eyes) Capsule 1 CAP PO ×2 (09:03→22:18)
[2024-01-01] MEDS: NIFEdipine 60 MG Tablet PO (09:04)
[2024-01-01] MEDS: Losartan Potassium 50 MG Tablet PO (09:04)
[2024-01-01] MEDS: Escitalopram Oxalate 10 MG Tablet PO (09:04)
[2024-01-01] MEDS: Multivitamins,Therapeutic Tablet 1 TABLET PO (09:04)
[2024-01-01] MEDS: Aspirin 81 MG TAB.CHEW PO (09:04)
--- NOTE | 2024-01-01 10:27 | CASEMGMT ---
Social Work SW requested pt for brother to provide copies of advanced directives. Pt agreed. Zulema Cleveland, EXECUTIVE PRODUCER PROMOS SAT INSTRUCTOR
[2024-01-01 11:17] VITALS: BMI 26.3
--- NOTE | 2024-01-01 17:34 | PN_ITS ---
Subjective Subjective Afebrile VSS Maintaining appropriate oxygen saturation on RA Oral intake is poor for both food and fluids. He has had 2 postvoid residuals. 1 was 2 and the other was 72. Discussed with nursing - no problems that need addressed Reviewed the PT/OT/ST notes Medication list reviewed. Ramsey's only complaint today is he has a poor appetite. He is having a lot of self-deprecating humor and seems down on himself. He denies cephalgia, neck pain, palpitations, lightheadedness, shortness of breath, nausea/vomiting/ab dominal pain/heartburn, dysuria and calf pain. No suicidal ideation. Has been cooperative with therapy sessions. Interacts well with staff. Objective Data Objective Data Vital Signs: Vital Signs Temp Pulse Resp BP Pulse Ox O2 Del Method 99.1 F 60 16 136/58 H 95 Room Air 01/01/24 07:58 01/01/24 07:58 01/01/24 07:58 01/01/24 07:58 01/01/24 07:58 01/01/24 07:58 Oxygen Delivery Method Room Air Weight: 187 lb 9.6 oz Body Mass Index (BMI) 26.3 Intake & Output: Intake and Output for Last 24 Hours 12/30/23 12/31/23 01/01/24 23:59 23:59 23:59 Intake Total 1280 / 1280 460 / 460 Output Total 650 / 750 1025 / 1025 500 / 500 Balance -650 / -750 255 / 255 -40 / -40 Lab / Micro Data 12/31/23 05:47 12/31/23 05:47 Physical Exam Const alert and no apparent distress General Appearance: cooperative HEENT Mouth: dry mucous membranes Resp normal respiratory effort and clear to auscultation bilaterally Resp Narrative: No conversational dyspnea. Effort and Inspection: Negative for tachypneic or respiratory distress Cardio no gallops Cardio Narrative: regular with frequent premature beats. Heart sounds are somewhat distant. He has a soft systolic ejection murmur at the second right intercostal space. GI normal to inspection, nondistended, normoactive bowel sounds, soft to palpation and non-tender GI Narrative: . Extremity no calf tenderness General Extremity: Negative for edema Skin Skin Narrative: th incision R neck is intact with no dehiscence, no Dc and no lynn-incisional erythema General Skin Exam: dry skin Rashes: no rashes Psych cooperative Psych Narrative: Affect is down. Appetite is decreased. He is self-deprecating. Not anxious and not restless. He is talkative and is interacting well with the staff. Assessment & Plan Assessment/Plan (1) Debility: (2) Acute stroke due to ischemia: PLAN: R basal ganglia. (3) Stenosis of right internal carotid artery with cerebral infarction: (4) S/P carotid endarterectomy: PLAN: 12/28/[address] 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 Has been seen in the past by St. Has had 2 prior strokes..... Right parietal and left occipital. 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 (8) Muscle weakness of left upper extremity: (9) Normochromic normocytic anemia: PLAN: Etiology unknown. 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 PLAN: Plan 1. Continue therapy 2. Lexapro has been increased to 15 mg p.o. daily. His weight is stable and the dietitian has seen him and is providing nutritional supplements. 3. I encouraged him to increase his fluid intake. 4. Check orthostatic vital signs. 5. Recheck a BMP and H&H on Thursday. 6. Await the results of the Hemoccult stool. If it is positive we will add a PPI to the current drug regimen. 7. Continue dual antiplatelet drugs and atorvastatin. I reviewed all paperwork received from PCP. TSH was 1.79 in March 2023. Free T4 was normal. LDL at that time was 91 with an HDL of 51. Creatinine was 1.36 with a GFR of 50 which is consistent with stage III chronic renal failure. Charges/Coding Visit Charges Inpatient E&M: 20680 Subs Hosp L1
[2024-01-01 22:00] VITALS: BP 109/59; PULSE 56; RESP 17; TEMP 36.6; O2SAT 98
[2024-01-01] MEDS: Atorvastatin Calcium 80 MG Tablet PO (22:18)
[2024-01-02 00:04] VITALS: BMI 26.3
[2024-01-02] MEDS: Acetaminophen 500 MG Tablet PO ×2 (03:27→06:56)
[2024-01-02] MEDS: Levothyroxine 50 MCG Tablet PO (06:42)
[2024-01-02 06:49] VITALS: BP 111/60; BP 111/70; BP 117/59; PULSE 55; PULSE 58; PULSE 60
[2024-01-02] MEDS: Multivitamins,Therapeutic Tablet 1 TABLET PO (08:12)
[2024-01-02] MEDS: Aspirin 81 MG TAB.CHEW PO (08:12)
[2024-01-02 08:32] VITALS: BP 111/63; PULSE 52; RESP 16; TEMP 36.6; O2SAT 97
[2024-01-02] MEDS: Senna/Docusate Sodium 1 Tablet 2 TABLET PO ×2 (10:40→21:04)
[2024-01-02] MEDS: Multivitamin (Healthy Eyes) Capsule 1 CAP PO ×2 (10:41→21:04)
[2024-01-02] MEDS: Escitalopram Oxalate 10 MG Tablet 15 MG PO (10:41)
[2024-01-02] MEDS: Enoxaparin 40 MG/0.4 ML Syringe SC (10:41)
[2024-01-02] MEDS: Clopidogrel Bisulfate 75 MG Tablet PO (10:41)
[2024-01-02] MEDS: Losartan Potassium 50 MG Tablet PO (10:41)
[2024-01-02] MEDS: NIFEdipine 60 MG Tablet PO (10:41)
[2024-01-02 11:34] VITALS: BMI 26.3
[2024-01-02] MEDS: Acetaminophen 325 MG Tablet 650 MG PO (17:21)
[2024-01-02 20:36] VITALS: BP 126/54; PULSE 56; RESP 16; TEMP 37.2; O2SAT 98
[2024-01-02] MEDS: Atorvastatin Calcium 80 MG Tablet PO (21:04)
[2024-01-03 00:51] VITALS: BMI 26.3
--- NOTE | 2024-01-03 03:23 | NURSING ---
Reviewed and agree with Marcos CUMMINGS, documentation and assessment charting.
[2024-01-03] MEDS: Acetaminophen 325 MG Tablet 650 MG PO ×2 (05:19→19:54)
[2024-01-03] MEDS: Levothyroxine 50 MCG Tablet PO (05:19)
[2024-01-03 07:51] VITALS: BP 143/74; PULSE 51; RESP 18; TEMP 37.1; O2SAT 96
[2024-01-03] MEDS: Clopidogrel Bisulfate 75 MG Tablet PO (08:39)
[2024-01-03] MEDS: Losartan Potassium 50 MG Tablet PO (08:39)
[2024-01-03] MEDS: Multivitamin (Healthy Eyes) Capsule 1 CAP PO ×2 (08:39→19:56)
[2024-01-03] MEDS: Escitalopram Oxalate 10 MG Tablet 15 MG PO (08:39)
[2024-01-03] MEDS: Multivitamins,Therapeutic Tablet 1 TABLET PO (08:39)
[2024-01-03] MEDS: NIFEdipine 60 MG Tablet PO (08:39)
[2024-01-03] MEDS: Aspirin 81 MG TAB.CHEW PO (08:39)
[2024-01-03] MEDS: Senna/Docusate Sodium 1 Tablet 2 TABLET PO ×2 (08:39→19:55)
[2024-01-03] MEDS: Enoxaparin 40 MG/0.4 ML Syringe SC (08:42)
[2024-01-03 11:48] VITALS: BMI 26.3
[2024-01-03 19:50] VITALS: BP 145/71; PULSE 56; RESP 16; TEMP 37.2; O2SAT 98
[2024-01-03] MEDS: Atorvastatin Calcium 80 MG Tablet PO (19:55)
[2024-01-03 20:28] VITALS: O2SAT 98
[2024-01-03 23:58] VITALS: BMI 26.3
--- NOTE | 2024-01-04 03:43 | NURSING ---
Reviewed and agree with Radha CUMMINGS, documentation and assessment charting.
[2024-01-04] MEDS: Acetaminophen 325 MG Tablet 650 MG PO ×2 (04:55→18:32)
[2024-01-04] MEDS: Levothyroxine 50 MCG Tablet PO (05:03)
[2024-01-04 05:10] VITALS: BMI 26.2
[2024-01-04 05:51] LABS: Hematocrit 32.3 % (40-54); Hemoglobin 10.7 g/dL (13.0-16.5)
[2024-01-04 06:20] LABS: Anion Gap 3 (5-15); BUN 20 mg/dL (7-18); BUN/Creat Ratio 18.3 RATIO (10-20); Calcium,Total 9.3 mg/dL (8.5-10.1); Chloride 112 mmol/L (98-107); Creatinine, Serum 1.09 mg/dL (0.70-1.30); EST Glomerular Filtration Rate 69 mL/min (>60); Est Glom Filt Rate - Afr Amer 83 mL/min (>60); Estimated Creatinine Clearance 54.88 ml/min; Glucose 100 mg/dL (74-106); Potassium 4.3 mmol/L (3.5-5.1); Sodium Level 140 mmol/L (136-145)
[2024-01-04 07:44] VITALS: BP 121/59; PULSE 56; RESP 15; TEMP 36.6; O2SAT 95
[2024-01-04] MEDS: Aspirin 81 MG TAB.CHEW PO (09:19)
[2024-01-04] MEDS: Multivitamins,Therapeutic Tablet 1 TABLET PO (09:19)
[2024-01-04] MEDS: NIFEdipine 60 MG Tablet PO (09:19)
[2024-01-04] MEDS: Clopidogrel Bisulfate 75 MG Tablet PO (09:19)
[2024-01-04] MEDS: Multivitamin (Healthy Eyes) Capsule 1 CAP PO ×2 (09:19→21:02)
[2024-01-04] MEDS: Escitalopram Oxalate 10 MG Tablet 15 MG PO (09:19)
[2024-01-04] MEDS: Enoxaparin 40 MG/0.4 ML Syringe SC (09:19)
[2024-01-04] MEDS: Losartan Potassium 50 MG Tablet PO (09:19)
[2024-01-04] MEDS: Senna/Docusate Sodium 1 Tablet 2 TABLET PO ×2 (09:20→21:02)
--- NOTE | 2024-01-04 10:14 | PCM.PROGNOTE ---
Subjective Subjective Afebrile VSS-he is persistently bradycardic. Systolic is occasionally above goal in the low 140s. Diastolics are always within goal. Maintaining appropriate oxygen saturation on RA Oral intake is good Discussed with nursing - no problems that need addressed Reviewed the PT/OT/ST notes Medication list reviewed. All lab was personally reviewed. Hemoglobin is stable at 10.7. Creatinine has improved with hydration and is 1.09, down from 1.32 on 12/29/2023. Potassium is 4.3 and the sodium is normal. Ramsey is most often sleeping when I go into his room to talk with and examine him. We had a nice conversation but, he tells me that he is ready to and he has nothing to live for. He was very rational about it. He does not appear to be anxious or depressed. He is not tearful. He has been a resident of [facility] and he has no one to talk to. He enjoys the interactions with the staff on rehab. He used to be able to go out to lunch with his brother and he enjoyed that but, with this recent stroke he does not see himself being able to do that any longer. He is not suicidal or homicidal. He is calm and rational. He is c/o a occipital CLAY that actually starts in the posterior neck. He has a K pad and has been getting Tylenol. No changes in the neuro exam. He does have tight trapeziux muscles BL and he has pain at the site of insertion of the trapezius over the mastoid and at the base of the skull. Objective Data Objective Data Vital Signs: Vital Signs Temp Pulse Resp BP Pulse Ox O2 Del Method 97.8 F 56 L 15 121/59 H 95 Room Air 01/04/24 07:44 01/04/24 07:44 01/04/24 07:44 01/04/24 07:44 01/04/24 07:44 01/04/24 07:44 Oxygen Delivery Method Room Air Weight: 187 lb 13.341 oz Body Mass Index (BMI) 26.2 Intake & Output: Intake and Output for Last 24 Hours 01/02/24 01/03/24 01/04/24 23:59 23:59 23:59 Intake Total 1410 / 1410 1420 / 1420 320 / 320 Output Total 1000 / 1000 925 / 925 525 / 525 Balance 410 / 410 495 / 495 -205 / -205 Lab / Micro Data 01/04/24 05:35 01/04/24 05:35 Labs: Laboratory Results - last 24 hr 01/04/24 05:35: Hgb 10.7 L, Hct 32.3 L, Sodium 140, Potassium 4.3, Chloride 112 H, Carbon Dioxide 25.0, Anion Gap 3 L, BUN 20 H, Creatinine 1.09, Estim Creat Clear Calc 54.88, Est GFR (MDRD) Af Amer 83, Est GFR (MDRD) Non-Af 69, BUN/Creatinine Ratio 18.3, Glucose 100, Calcium 9.3 Micro: Microbiology 01/02/24 17:00 Stool Stool Occult Blood (TIMOTHY) - Final Occult Blood Positive Physical Exam Const alert and oriented x3 Constitutional Narrative: apathetic but cooperative with therapy General Appearance: cooperative HEENT Mouth: dry mucous membranes Neck supple Resp clear to auscultation bilaterally Resp Narrative: No conversational dyspnea Effort and Inspection: Negative for tachypneic Cardio Cardio Narrative: Regular rate and rhythm, no murmur, no gallop. No ectopy. GI normal to inspection, nondistended, normoactive bowel sounds, soft to palpation and non-tender Extremity no calf tenderness Extremity Narrative: No ankle edema. Skin Rashes: no rashes Neuro Neuro Narrative: Gabriella godinez has more movement of the LUE.....now has movement in the triceps, biceps and some hand roof promenade tile setter on the L. He is able to move the forearm from side to side a little on the mattress. Should shrug is more even today. Psych cooperative Psych Narrative: He is pleasant but, apathetic. Does not want to live any longer. He is rational and calm. There is nothing he is able to do that he likes anymore and he is ready to . Assessment & Plan Assessment/Plan (1) Debility: (2) Acute stroke due to ischemia: PLAN: R basal ganglia. (3) Stenosis of right internal carotid artery with cerebral infarction: (4) S/P carotid endarterectomy: PLAN: 12/28/[address] 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 Has been seen in the past by ST. Has had 2 prior strokes..... Right parietal and left occipital. 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 (8) Muscle weakness of left upper extremity: (9) Normochromic normocytic anemia: PLAN: Etiology unknown. 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 PLAN: Plan 1. Continue therapy 2. Restart Wellbutrin XL 150 mg daily in the a.m. Continue Lexapro 15 mg daily. He may benefit from therapy but, he is very rational when we talk and he is not suicidal. The apathy may well continue even though we are treating him for depression. 3. Discussed with the SW and she will talk with him today. Charges/Coding Visit Charges Inpatient E&M: 91358 Subs Hosp L1
[2024-01-04 12:42] LABS: White Blood Count 8.3 K/mm3 (4.4-11.0)
[2024-01-04 12:51] LABS: CRP 8.93 mg/L (0.0-3.0)
[2024-01-04 12:53] LABS: Erythrocyte Sedimentation Rate 32 mm/hr (0-20)
--- NOTE | 2024-01-04 13:15 | CASEMGMT ---
Social Work IDT met with patient for Team meeting. Left VM for brother. Discussed patient's progress in PT/OT/ST/SN. Educated to [facility] insurance with [employer] 01/05 and continued stay is not guaranteed with each review. Pt is requesting to return to [facility] and with hospice services. SW offered to return after Team to have further, private, discussion. Pt agreeable. SW will continue to follow. Zulema Cleveland, PAINTINGS RESTORER MARINE SERVICE STATION ATTENDANT
[2024-01-04 13:17] VITALS: BMI 26.2
[2024-01-04 15:45] VITALS: BP 101/58; PULSE 77; RESP 18; TEMP 36.6; O2SAT 97
[2024-01-04 20:50] VITALS: BP 101/58; PULSE 77; RESP 18; TEMP 36.6; O2SAT 97; BMI 26.2
[2024-01-04] MEDS: Atorvastatin Calcium 80 MG Tablet PO (21:02)
[2024-01-04] MEDS: Arthritis Pain Compound 60 CLICK TUBE TOPICAL (21:02)
[2024-01-05] MEDS: Levothyroxine 50 MCG Tablet PO (05:45)
[2024-01-05] MEDS: Acetaminophen 325 MG Tablet 650 MG PO ×3 (05:45→21:15)
[2024-01-05] MEDS: Enoxaparin 40 MG/0.4 ML Syringe SC (05:45)
[2024-01-05 07:37] VITALS: BP 146/71; PULSE 54; RESP 16; TEMP 36; O2SAT 96
[2024-01-05] MEDS: Arthritis Pain Compound 60 CLICK TUBE TOPICAL ×2 (08:17→21:14)
[2024-01-05] MEDS: Losartan Potassium 50 MG Tablet PO (08:17)
[2024-01-05] MEDS: Clopidogrel Bisulfate 75 MG Tablet PO (08:17)
[2024-01-05] MEDS: Multivitamin (Healthy Eyes) Capsule 1 CAP PO ×2 (08:17→21:14)
[2024-01-05] MEDS: Aspirin 81 MG TAB.CHEW PO (08:17)
[2024-01-05] MEDS: NIFEdipine 60 MG Tablet PO (08:17)
[2024-01-05] MEDS: Escitalopram Oxalate 10 MG Tablet 15 MG PO (08:17)
[2024-01-05] MEDS: Multivitamins,Therapeutic Tablet 1 TABLET PO (08:17)
[2024-01-05] MEDS: buPROPion (XL) 150 MG TABLET.XL PO (08:46)
--- NOTE | 2024-01-05 16:01 | CASEMGMT ---
Social Work SW received phone call from brother returning call from Team meeting yesterday. SW provided updates from meeting and answered questions. Explained insurance coverage and DC plans for return to [facility]. LAUREN also noted pt mentioned to Dr about being ready to and possibly returning to [place] with hospice services. Brother stated pt has not made any of those comments to brother and would be interested in the outcome of pt and this worker's upcoming conversation. SW agreed that is pt is agreeable to brother getting update, this worker will provide. Brother appreciative. -- LAUREN spoke with pt at bedside to follow up on pt's wishes and goals of treatment. SW provided active listening to pt explain his goals. Pt expressed several times that he is 83 years old, he lived a good life, and there is no need to prolong that life with maximum medical treatment. SW inquired about hospice services. Pt unsure what hospice services were. SW educated to services. Pt explained he wants to continue with therapy but does not want maximum medical treatment to prolong life. Throughout conversation, this worker repeated back pt's wishes to ensure understanding. SW provided several scenarios of medical treatment to confirm pt would like to pursue or not. Pt expressed he is frustrated with lack of activity d/t stroke outcome and acknowledged wanting instant gratification. However, pt wishes to continue with therapy in as long as insurance allows, and to continue with OP therapy upon return to [facility]. Pt wishes to pursue minimal medical treatment such as treatment for infection, IV fluids, etc, like a true DNR , per pt. SW noted depression d/t post stroke, lifestyle change and change from [place] environment to [place] environment. SW recapped conversation with pt's wishes of continued therapy in and at [facility], and if pt wants to elect hospice services at any time or after therapy has concluded, pt can do so. Pt appreciative of time, conversation and explanation, stating I think you've given me some good goals . SW offered to follow up with brother and pt agreed. SW updated and Dr noted she recently increased pt's antidepressant. -- LAUREN phoned brother to update on above conversation and wishes for continued therapy and minimal medical treatment per pt's DNR-CCA, order. Brother appreciative and will be present at upcoming Team meetings. SW will continue to follow. Zulema Cleveland, TEXTILE WORKER DYE EXPERT
[2024-01-05 17:00] VITALS: BMI 26.2
[2024-01-05 19:38] VITALS: BP 129/74; PULSE 62; RESP 16; TEMP 36.7; O2SAT 96; BMI 26.2
[2024-01-05] MEDS: Atorvastatin Calcium 80 MG Tablet PO (21:14)
[2024-01-05] MEDS: Senna/Docusate Sodium 1 Tablet 2 TABLET PO (21:14)
[2024-01-06] MEDS: Levothyroxine 50 MCG Tablet PO (05:29)
[2024-01-06] MEDS: Enoxaparin 40 MG/0.4 ML Syringe SC (05:29)
[2024-01-06 05:40] VITALS: BMI 26.0
[2024-01-06 07:25] VITALS: BP 119/69; PULSE 58; RESP 16; TEMP 36.9; O2SAT 96
[2024-01-06] MEDS: Senna/Docusate Sodium 1 Tablet 2 TABLET PO ×2 (08:12→21:28)
[2024-01-06] MEDS: Multivitamin (Healthy Eyes) Capsule 1 CAP PO ×2 (08:12→21:28)
[2024-01-06] MEDS: NIFEdipine 60 MG Tablet PO (08:12)
[2024-01-06] MEDS: Clopidogrel Bisulfate 75 MG Tablet PO (08:13)
[2024-01-06] MEDS: Arthritis Pain Compound 60 CLICK TUBE TOPICAL ×2 (08:13→22:04)
[2024-01-06] MEDS: Multivitamins,Therapeutic Tablet 1 TABLET PO (08:13)
[2024-01-06] MEDS: buPROPion (XL) 150 MG TABLET.XL PO (08:13)
[2024-01-06] MEDS: Aspirin 81 MG TAB.CHEW PO (08:13)
[2024-01-06] MEDS: Escitalopram Oxalate 10 MG Tablet 15 MG PO (08:13)
[2024-01-06] MEDS: Losartan Potassium 50 MG Tablet PO (08:16)
[2024-01-06 10:45] VITALS: BMI 26.0
[2024-01-06 19:00] VITALS: BP 134/67; PULSE 64; RESP 16; TEMP 37.2; O2SAT 97
[2024-01-06] MEDS: Atorvastatin Calcium 80 MG Tablet PO (21:28)
[2024-01-06] MEDS: Acetaminophen 325 MG Tablet 650 MG PO (21:28)
[2024-01-06 22:00] VITALS: BP 134/67; PULSE 64; RESP 16; TEMP 37.2; O2SAT 97; BMI 26.0
[2024-01-07] MEDS: Enoxaparin 40 MG/0.4 ML Syringe SC (06:30)
[2024-01-07] MEDS: Levothyroxine 50 MCG Tablet PO (06:53)
[2024-01-07] MEDS: buPROPion (XL) 150 MG TABLET.XL PO (08:39)
[2024-01-07] MEDS: Clopidogrel Bisulfate 75 MG Tablet PO (08:39)
[2024-01-07] MEDS: Escitalopram Oxalate 10 MG Tablet 15 MG PO (08:39)
[2024-01-07] MEDS: Senna/Docusate Sodium 1 Tablet 2 TABLET PO ×2 (08:39→21:49)
[2024-01-07] MEDS: NIFEdipine 60 MG Tablet PO (08:40)
[2024-01-07] MEDS: Multivitamins,Therapeutic Tablet 1 TABLET PO (08:40)
[2024-01-07] MEDS: Multivitamin (Healthy Eyes) Capsule 1 CAP PO ×2 (08:40→21:49)
[2024-01-07] MEDS: Aspirin 81 MG TAB.CHEW PO (08:40)
[2024-01-07] MEDS: Arthritis Pain Compound 60 CLICK TUBE TOPICAL ×2 (08:40→21:49)
[2024-01-07] MEDS: Losartan Potassium 50 MG Tablet PO (08:40)
[2024-01-07 08:46] VITALS: BP 112/66; PULSE 61; RESP 16; TEMP 36.3; O2SAT 95
[2024-01-07 14:33] VITALS: BMI 26.0
[2024-01-07] MEDS: Acetaminophen 325 MG Tablet 650 MG PO (18:40)
[2024-01-07 19:38] VITALS: BP 135/68; PULSE 60; RESP 17; TEMP 37.1; O2SAT 95
[2024-01-07 21:44] VITALS: BMI 26.0
[2024-01-07] MEDS: Atorvastatin Calcium 80 MG Tablet PO (21:49)
[2024-01-07 21:54] VITALS: PULSE 60; RESP 16
[2024-01-08] MEDS: Acetaminophen 325 MG Tablet 650 MG PO ×2 (06:03→20:35)
[2024-01-08] MEDS: Enoxaparin 40 MG/0.4 ML Syringe SC (06:04)
[2024-01-08] MEDS: Levothyroxine 50 MCG Tablet PO (06:04)
[2024-01-08] MEDS: Escitalopram Oxalate 10 MG Tablet 15 MG PO (09:04)
[2024-01-08] MEDS: Losartan Potassium 50 MG Tablet PO (09:04)
[2024-01-08] MEDS: Senna/Docusate Sodium 1 Tablet 2 TABLET PO ×2 (09:04→22:42)
[2024-01-08] MEDS: NIFEdipine 60 MG Tablet PO (09:04)
[2024-01-08] MEDS: Multivitamins,Therapeutic Tablet 1 TABLET PO (09:05)
[2024-01-08] MEDS: Multivitamin (Healthy Eyes) Capsule 1 CAP PO ×2 (09:05→22:42)
[2024-01-08] MEDS: Arthritis Pain Compound 60 CLICK TUBE TOPICAL ×2 (09:05→22:41)
[2024-01-08] MEDS: buPROPion (XL) 150 MG TABLET.XL PO (09:05)
[2024-01-08] MEDS: Clopidogrel Bisulfate 75 MG Tablet PO (09:05)
[2024-01-08] MEDS: Aspirin 81 MG TAB.CHEW PO (09:05)
[2024-01-08 09:08] VITALS: BP 128/64; PULSE 70; RESP 16; TEMP 36.7; O2SAT 96
[2024-01-08 13:33] VITALS: BMI 26.0
[2024-01-08 22:00] VITALS: BP 135/68; PULSE 60; RESP 16; RESP 17; TEMP 37.1; O2SAT 95
[2024-01-08 22:05] VITALS: BMI 26.0
[2024-01-08] MEDS: Atorvastatin Calcium 80 MG Tablet PO (22:42)
[2024-01-09] MEDS: Levothyroxine 50 MCG Tablet PO (05:34)
[2024-01-09] MEDS: Enoxaparin 40 MG/0.4 ML Syringe SC (05:34)
[2024-01-09 08:04] VITALS: BP 132/81; PULSE 59; RESP 16; TEMP 36.5; O2SAT 95
[2024-01-09] MEDS: Multivitamin (Healthy Eyes) Capsule 1 CAP PO ×2 (08:35→20:17)
[2024-01-09] MEDS: Aspirin 81 MG TAB.CHEW PO (08:35)
[2024-01-09] MEDS: Multivitamins,Therapeutic Tablet 1 TABLET PO (08:36)
[2024-01-09] MEDS: Losartan Potassium 50 MG Tablet PO (08:36)
[2024-01-09] MEDS: buPROPion (XL) 150 MG TABLET.XL PO (08:36)
[2024-01-09] MEDS: Escitalopram Oxalate 10 MG Tablet 15 MG PO (08:36)
[2024-01-09] MEDS: Senna/Docusate Sodium 1 Tablet 2 TABLET PO ×2 (08:36→20:17)
[2024-01-09] MEDS: Clopidogrel Bisulfate 75 MG Tablet PO (08:37)
[2024-01-09] MEDS: NIFEdipine 60 MG Tablet PO (08:37)
[2024-01-09] MEDS: Arthritis Pain Compound 60 CLICK TUBE TOPICAL ×2 (08:37→20:17)
[2024-01-09] MEDS: Acetaminophen 325 MG Tablet 650 MG PO ×2 (08:37→20:43)
[2024-01-09 10:00] VITALS: RESP 14
[2024-01-09 17:00] VITALS: BMI 26.0
[2024-01-09 20:14] VITALS: BP 133/70; PULSE 62; RESP 12; TEMP 36.6; O2SAT 95
[2024-01-09] MEDS: Atorvastatin Calcium 80 MG Tablet PO (20:17)
[2024-01-09 20:46] VITALS: PULSE 62; O2SAT 95
[2024-01-09 23:06] VITALS: BMI 26.0
[2024-01-10] MEDS: Levothyroxine 50 MCG Tablet PO (05:28)
[2024-01-10] MEDS: Enoxaparin 40 MG/0.4 ML Syringe SC (05:29)
[2024-01-10 07:56] VITALS: BP 133/75; PULSE 58; RESP 15; TEMP 36.5; O2SAT 96
--- NOTE | 2024-01-10 09:08 | PCM.PROGNOTE ---
Subjective Subjective Afebrile VSS Maintaining appropriate oxygen saturation on RA Oral intake - FOOD good FLUIDS good Discussed with nursing - no problems that need addressed Reviewed the THERAPY notes Medication list reviewed. Octaviano denies lightheadedness, vertigo, CP, SOB at rest, SOB with exertion, cough, nausea, vomiting, abd pain, diarrhea, constipation, dysuria, calf pain and ankle swelling. He tells me he feels like he is making good improvement however he would like it to be faster. He is sleeping well at night and denies any pain. His appetite is good. Objective Data Objective Data Vital Signs: Vital Signs Temp Pulse Resp BP Pulse Ox O2 Del Method 97.7 F L 58 L 15 133/75 H 96 Room Air 01/10/24 07:56 01/10/24 07:56 01/10/24 07:56 01/10/24 07:56 01/10/24 07:56 01/10/24 07:56 Oxygen Delivery Method Room Air Weight: 186 lb 1.122 oz Body Mass Index (BMI) 26.0 Intake & Output: Intake and Output for Last 24 Hours 01/08/24 01/09/24 01/10/24 23:59 23:59 23:59 Intake Total 1590 / 1590 1540 / 1540 120 / 120 Output Total 620 / 620 600 / 600 150 / 150 Balance 970 / 970 940 / 940 -30 / -30 Lab / Micro Data 01/11/24 05:43 01/11/24 05:43 Micro: Microbiology 01/02/24 17:00 Stool Stool Occult Blood (TIMOTHY) - Final Occult Blood Positive Physical Exam Const alert, oriented x3 and no apparent distress Constitutional Narrative: Very pleasant and talkative. General Appearance: cooperative HEENT normocephalic Resp normal respiratory effort and clear to auscultation bilaterally Cardio regular rate, regular rhythm, no murmurs, no rub and no gallops GI normal to inspection, nondistended, normoactive bowel sounds, soft to palpation and non-tender Extremity no calf tenderness General Extremity: Negative for edema Skin General Skin Exam: no breakdown Wound Narrative: The right carotid incision is healing well. There is no lynn-incisional erythema and no discharge. Swelling is decreasing. Psych cooperative and affect normal Psych Narrative: Makes good eye contact with me. We were able to have a nice conversation. No suicidal ideation. Appearance: appropriate Assessment & Plan Assessment/Plan (1) Debility: (2) Acute stroke due to ischemia: PLAN: R basal ganglia. (3) Stenosis of right internal carotid artery with cerebral infarction: (4) S/P carotid endarterectomy: PLAN: 12/28/[address] 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 Has been seen in the past by ST. Has had 2 prior strokes..... Right parietal and left occipital. 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 (8) Muscle weakness of left upper extremity: (9) Normochromic normocytic anemia: PLAN: Etiology unknown. 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 Doing better with the changes in the antidepressant regimen. PLAN: Plan 1. Continue therapy 2. Will likely need alf at discharge 3. He continues to make progress in therapy and has not yet plateaued. 4. Mood is improving Charges/Coding Visit Charges Inpatient E&M: 26914 Subs Hosp L1
[2024-01-10] MEDS: Senna/Docusate Sodium 1 Tablet 2 TABLET PO (09:19)
[2024-01-10] MEDS: Escitalopram Oxalate 10 MG Tablet 15 MG PO (09:19)
[2024-01-10] MEDS: Arthritis Pain Compound 60 CLICK TUBE TOPICAL ×2 (09:19→20:52)
[2024-01-10] MEDS: Clopidogrel Bisulfate 75 MG Tablet PO (09:20)
[2024-01-10] MEDS: Aspirin 81 MG TAB.CHEW PO (09:21)
[2024-01-10] MEDS: Losartan Potassium 50 MG Tablet PO (09:21)
[2024-01-10] MEDS: Multivitamin (Healthy Eyes) Capsule 1 CAP PO ×2 (09:21→20:52)
[2024-01-10] MEDS: Multivitamins,Therapeutic Tablet 1 TABLET PO (09:21)
[2024-01-10] MEDS: Acetaminophen 325 MG Tablet 650 MG PO ×2 (09:23→20:54)
[2024-01-10] MEDS: buPROPion (XL) 150 MG TABLET.XL PO (09:23)
[2024-01-10] MEDS: NIFEdipine 60 MG Tablet PO (09:29)
[2024-01-10 10:00] VITALS: PULSE 64; O2SAT 94
[2024-01-10 17:00] VITALS: BMI 26.0
[2024-01-10 20:00] VITALS: BP 150/74; PULSE 64; RESP 16; TEMP 36.8; BMI 26.0
[2024-01-10 20:30] VITALS: PULSE 64; RESP 16
[2024-01-10] MEDS: Atorvastatin Calcium 80 MG Tablet PO (20:52)
--- NOTE | 2024-01-11 03:54 | NURSING ---
Reviewed and agree with Naida CUMMINGS, documentation and assessment charting.
[2024-01-11] MEDS: Enoxaparin 40 MG/0.4 ML Syringe SC (05:43)
[2024-01-11] MEDS: Levothyroxine 50 MCG Tablet PO (05:43)
[2024-01-11 06:03] LABS: Hematocrit 35.1 % (40-54); Hemoglobin 11.3 g/dL (13.0-16.5)
[2024-01-11 06:41] LABS: Anion Gap 2 (5-15); BUN 25 mg/dL (7-18); BUN/Creat Ratio 19.7 RATIO (10-20); Calcium,Total 9.4 mg/dL (8.5-10.1); Chloride 110 mmol/L (98-107); Creatinine, Serum 1.27 mg/dL (0.70-1.30); EST Glomerular Filtration Rate 58 mL/min (>60); Est Glom Filt Rate - Afr Amer 70 mL/min (>60); Glucose 97 mg/dL (74-106); Potassium 4.5 mmol/L (3.5-5.1); Sodium Level 140 mmol/L (136-145)
[2024-01-11] MEDS: Multivitamin (Healthy Eyes) Capsule 1 CAP PO ×2 (08:35→20:27)
[2024-01-11] MEDS: Escitalopram Oxalate 10 MG Tablet 15 MG PO (08:35)
[2024-01-11] MEDS: Multivitamins,Therapeutic Tablet 1 TABLET PO (08:36)
[2024-01-11] MEDS: Arthritis Pain Compound 60 CLICK TUBE TOPICAL ×2 (08:36→20:28)
[2024-01-11] MEDS: buPROPion (XL) 150 MG TABLET.XL PO (08:36)
[2024-01-11] MEDS: Clopidogrel Bisulfate 75 MG Tablet PO (08:36)
[2024-01-11] MEDS: Losartan Potassium 50 MG Tablet PO (08:36)
[2024-01-11] MEDS: NIFEdipine 60 MG Tablet PO (08:36)
[2024-01-11] MEDS: Aspirin 81 MG TAB.CHEW PO (08:36)
[2024-01-11] MEDS: Acetaminophen 325 MG Tablet 650 MG PO ×2 (08:43→20:27)
[2024-01-11 10:00] VITALS: BP 123/68; PULSE 58; PULSE 62; RESP 14; RESP 16; TEMP 36.6; O2SAT 98
--- NOTE | 2024-01-11 12:07 | PCM.PROGNOTE ---
Subjective Subjective Octaviano was seen on team rounds today. His brother Minor was present in the room for rounds. Afebrile VSS-diastolic blood pressures are always within goal. Systolic blood pressures are mildly elevated at times and within goal at others. Maintaining appropriate oxygen saturation on RA Oral intake - FOOD good FLUIDS good Discussed with nursing - no problems that need addressed Reviewed the THERAPY notes Medication list reviewed. Antihypertensives include nifedipine 60 mg daily, Cozaar 50 mg daily. All lab drawn this morning was personally reviewed. Hemoglobin is improving and is up to 11.3 from 10.71-week ago. Sodium is 140 and stable and the potassium is stable at 4.5. The BUN is 25 and the creatinine is 1.27 which is within his baseline. Objective Data Objective Data Vital Signs: Vital Signs Temp Pulse Resp BP Pulse Ox O2 Del Method 98 F 58 L 16 123/68 H 98 Room Air 01/11/24 10:00 01/11/24 10:00 01/11/24 10:00 01/11/24 10:00 01/11/24 10:00 01/11/24 10:00 Oxygen Delivery Method Room Air Weight: 186 lb 1.122 oz Body Mass Index (BMI) 26.0 Intake & Output: Intake and Output for Last 24 Hours 01/09/24 01/10/24 01/11/24 23:59 23:59 23:59 Intake Total 1540 / 1540 1035 / 1035 420 / 420 Output Total 600 / 600 600 / 600 Balance 940 / 940 435 / 435 420 / 420 Lab / Micro Data 01/11/24 05:43 01/11/24 05:43 Labs: Laboratory Results - last 24 hr 01/11/24 05:43: Hgb 11.3 L, Hct 35.1 L, Sodium 140, Potassium 4.5, Chloride 110 H, Carbon Dioxide 28.0, Anion Gap 2 L, BUN 25 H, Creatinine 1.27, Estim Creat Clear Calc 47.10, Est GFR (MDRD) Af Amer 70, Est GFR (MDRD) Non-Af 58 L, BUN/Creatinine Ratio 19.7, Glucose 97, Calcium 9.4 Micro: Microbiology 01/02/24 17:00 Stool Stool Occult Blood (TIMOTHY) - Final Occult Blood Positive Physical Exam Const alert, oriented x3 and no apparent distress Constitutional Narrative: Very pleasant and talkative. General Appearance: cooperative HEENT moist oral mucous membranes Neck supple General: trachea midline Resp normal respiratory effort and clear to auscultation bilaterally Resp Narrative: No conversational dyspnea Cardio Cardio Narrative: Regular rate and rhythm, no murmur, no gallop. No ectopy. GI normal to inspection, nondistended, normoactive bowel sounds, soft to palpation and non-tender GI Narrative: . Extremity no calf tenderness Extremity Narrative: No ankle edema. General Extremity: Negative for edema Skin no wounds Skin Narrative: th incision R neck is intact with no dehiscence, no Dc and no lynn-incisional erythema General Skin Exam: no breakdown and dry skin Rashes: no rashes Psych cooperative and affect normal Psych Narrative: Makes good eye contact with me. We were able to have a nice conversation. No suicidal ideation. His attitude seems to have improved with the increase in the Lexapro to 15 mg and restarting Wellbutrin XL. No seizures since admission to rehab. He no longer seems so apathetic about his continued survival. He is looking forward to DC and being able to go out with his brother for coffee and lunch again. Appearance: appropriate Assessment & Plan Assessment/Plan (1) Debility: (2) Acute stroke due to ischemia: PLAN: R basal ganglia. (3) Stenosis of right internal carotid artery with cerebral infarction: (4) S/P carotid endarterectomy: PLAN: 12/28/[address] 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 Has been seen in the past by ST. Has had 2 prior strokes..... Right parietal and left occipital. 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 (8) Muscle weakness of left upper extremity: (9) Normochromic normocytic anemia: PLAN: Etiology unknown. 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 Doing better with the changes in the antidepressant regimen. PLAN: Plan 1. Continue therapy 2. He has now had 2 strokes involving the R cerebrum and 1 on the L in the occipital area. The recent stroke is presumed to be due to severe R carotid stenosis. the remainder of the brain circulation on CTA and the Left carotid have no significant stenosis. I am going to recommend a 30 day event monitor at DC from rehab. 3. Will follow up with Dr. Huynh post DC from rehab. 4. Will also need to follow up with neurology. 5. Systolic BP is very mildly elevated - will continue to monitor. This may improve with going home. Will continue to monitor BP but, no changes to the antihypertensive regimen at this time. iMnor had questions and they were all answered to his satisfaction. Charges/Coding Visit Charges Inpatient E&M: 34524 Subs Hosp L2
--- NOTE | 2024-01-11 13:18 | CASEMGMT ---
Social Work IDT met with patient and brother for Team meeting. Discussed patient's progress in PT/OT/ST/SN. Educated to [facility] insurance with NRD 01/12 and continued stay is not guaranteed with each review. Pt's goal is to return to [facility] at DC with skilled HHC/OP therapy. SW will continue to follow for DC planning. Will ReTeam weekly. ANGELITA PalacioW
[2024-01-11 16:58] VITALS: BMI 26.0
[2024-01-11] MEDS: Atorvastatin Calcium 80 MG Tablet PO (20:27)
[2024-01-11 21:40] VITALS: PULSE 62; RESP 12
[2024-01-11 22:00] VITALS: BP 119/63; PULSE 62; RESP 17; TEMP 37; O2SAT 98
[2024-01-11 22:30] VITALS: BMI 26.0
[2024-01-12] MEDS: Enoxaparin 40 MG/0.4 ML Syringe SC (05:59)
[2024-01-12] MEDS: Levothyroxine 50 MCG Tablet PO (05:59)
[2024-01-12] MEDS: Multivitamins,Therapeutic Tablet 1 TABLET PO (09:35)
[2024-01-12] MEDS: Aspirin 81 MG TAB.CHEW PO (09:35)
[2024-01-12] MEDS: Losartan Potassium 50 MG Tablet PO (09:35)
[2024-01-12] MEDS: Escitalopram Oxalate 10 MG Tablet 15 MG PO (09:36)
[2024-01-12] MEDS: Senna/Docusate Sodium 1 Tablet 2 TABLET PO ×2 (09:37→20:37)
[2024-01-12] MEDS: Multivitamin (Healthy Eyes) Capsule 1 CAP PO ×2 (09:37→20:37)
[2024-01-12] MEDS: Clopidogrel Bisulfate 75 MG Tablet PO (09:37)
[2024-01-12] MEDS: NIFEdipine 60 MG Tablet PO (09:37)
[2024-01-12] MEDS: buPROPion (XL) 150 MG TABLET.XL PO (09:38)
[2024-01-12] MEDS: Arthritis Pain Compound 60 CLICK TUBE TOPICAL ×2 (09:38→20:37)
[2024-01-12 10:00] VITALS: BP 148/72; PULSE 58; RESP 17; TEMP 36.7; O2SAT 97
[2024-01-12 20:10] VITALS: BP 118/66; PULSE 63; RESP 17; TEMP 36.9; O2SAT 97
[2024-01-12] MEDS: Atorvastatin Calcium 80 MG Tablet PO (20:37)
[2024-01-12] MEDS: Acetaminophen 325 MG Tablet 650 MG PO (21:35)
[2024-01-13] MEDS: Levothyroxine 50 MCG Tablet PO (05:23)
[2024-01-13] MEDS: Enoxaparin 40 MG/0.4 ML Syringe SC (05:23)
[2024-01-13 05:30] VITALS: BMI 26.2
[2024-01-13 07:39] VITALS: BP 139/73; PULSE 58; RESP 15; TEMP 36.4; O2SAT 96
[2024-01-13] MEDS: Clopidogrel Bisulfate 75 MG Tablet PO (08:23)
[2024-01-13] MEDS: Losartan Potassium 50 MG Tablet PO (08:23)
[2024-01-13] MEDS: Senna/Docusate Sodium 1 Tablet 2 TABLET PO ×2 (08:23→20:48)
[2024-01-13] MEDS: Multivitamins,Therapeutic Tablet 1 TABLET PO (08:23)
[2024-01-13] MEDS: NIFEdipine 60 MG Tablet PO (08:23)
[2024-01-13] MEDS: buPROPion (XL) 150 MG TABLET.XL PO (08:23)
[2024-01-13] MEDS: Escitalopram Oxalate 10 MG Tablet 15 MG PO (08:23)
[2024-01-13] MEDS: Aspirin 81 MG TAB.CHEW PO (08:23)
[2024-01-13] MEDS: Multivitamin (Healthy Eyes) Capsule 1 CAP PO ×2 (08:23→20:48)
[2024-01-13] MEDS: Arthritis Pain Compound 60 CLICK TUBE TOPICAL ×2 (08:24→20:48)
--- NOTE | 2024-01-13 09:37 | CASEMGMT ---
Addendum entered by Zulema Cleveland 01/13/24 13:15: [facility] stated they can accept pt if he can transfer and ambulate Suly; if not, pt will need to admit to SNF LOC. Therapy will continue working with pt and determine at NRD if AL or SNF is more appropriate. SW will continue to follow. Original Note: Social Work SW sent updated clinicals to [facility] to ensure they can accept pt at DC. SW phoned brother to update on NRD 01/18. Will continue to follow. Zulema Cleveland, ANGELITA KATZW
--- NOTE | 2024-01-13 15:08 | PCM.PROGNOTE ---
Subjective Subjective Afebrile VSS - systolics are intermittently elevated mildly. Maintaining appropriate oxygen saturation on RA Oral intake - FOOD good FLUIDS fair Discussed with nursing - no problems that need addressed Reviewed the THERAPY notes Medication list reviewed. Octaviano has no complaints today. He is pleasant and talkative. He is sleeping will and has a good appetite and intake. His mood is not as negative. He interacts well with staff and enjoys company. He feels he is making progress in therapy. He denies cephalgia, lightheadedness, chest pain, shortness of breath, cough, palpitations, abdominal pain, dysuria and calf pain. Objective Data Objective Data Vital Signs: Vital Signs Temp Pulse Resp BP Pulse Ox O2 Del Method 97.5 F L 58 L 15 139/73 H 96 Room Air 01/13/24 07:39 01/13/24 07:39 01/13/24 07:39 01/13/24 07:39 01/13/24 07:39 01/13/24 07:39 Oxygen Delivery Method Room Air Weight: 187 lb 2.759 oz Body Mass Index (BMI) 26.2 Intake & Output: Intake and Output for Last 24 Hours 01/11/24 01/12/24 01/13/24 23:59 23:59 23:59 Intake Total 1480 / 1480 680 / 680 580 / 580 Output Total 500 / 500 450 / 850 850 / 850 Balance 980 / 980 230 / -170 -270 / -270 Lab / Micro Data 01/11/24 05:43 01/11/24 05:43 Micro: Microbiology 01/02/24 17:00 Stool Stool Occult Blood (TIMOTHY) - Final Occult Blood Positive Physical Exam Const alert, oriented x3 and no apparent distress Constitutional Narrative: Very pleasant and talkative. General Appearance: cooperative HEENT moist oral mucous membranes Neck supple General: trachea midline Resp normal respiratory effort and clear to auscultation bilaterally Resp Narrative: No conversational dyspnea Cardio Cardio Narrative: Regular rate and rhythm, no murmur, no gallop. No ectopy. GI normal to inspection, nondistended, normoactive bowel sounds, soft to palpation and non-tender GI Narrative: . Extremity no calf tenderness Extremity Narrative: No ankle edema. General Extremity: Negative for edema Skin no wounds Skin Narrative: th incision R neck is intact with no dehiscence, no Dc and no lynn-incisional erythema General Skin Exam: no breakdown and dry skin Rashes: no rashes Assessment & Plan Assessment/Plan (1) Debility: (2) Acute stroke due to ischemia: PLAN: R basal ganglia. (3) Stenosis of right internal carotid artery with cerebral infarction: (4) S/P carotid endarterectomy: PLAN: 12/28/[address] 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 Has been seen in the past by ST. Has had 2 prior strokes..... Right parietal and left occipital. 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 (8) Muscle weakness of left upper extremity: (9) Normochromic normocytic anemia: PLAN: Etiology unknown. 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 Doing better with the changes in the antidepressant regimen. PLAN: Plan 1. Continue therapy [facility]. [facility] continue PT/OT/ST. 3. Increase the Procardia XL to 90 mg daily. Goal BP is less than 130/80 consistently. BP's went up some with the restart of Wellbutrin but, his mood is improved so will continue the Wellbutrin. He has not had any seizure activity. Charges/Coding Visit Charges Inpatient E&M: 41610 Subs Hosp L1
[2024-01-13 16:12] VITALS: BMI 26.2
[2024-01-13] MEDS: Acetaminophen 325 MG Tablet 650 MG PO (20:47)
[2024-01-13] MEDS: Atorvastatin Calcium 80 MG Tablet PO (20:48)
[2024-01-13 22:00] VITALS: BP 126/64; PULSE 62; RESP 17; TEMP 37; O2SAT 99
[2024-01-13 23:04] VITALS: BMI 26.2
[2024-01-14] MEDS: Enoxaparin 40 MG/0.4 ML Syringe SC (06:43)
[2024-01-14] MEDS: Levothyroxine 50 MCG Tablet PO (06:43)
[2024-01-14] MEDS: Arthritis Pain Compound 60 CLICK TUBE TOPICAL ×2 (08:14→20:20)
[2024-01-14] MEDS: Senna/Docusate Sodium 1 Tablet 2 TABLET PO ×2 (08:14→20:20)
[2024-01-14] MEDS: buPROPion (XL) 150 MG TABLET.XL PO (08:14)
[2024-01-14] MEDS: NIFEdipine 30 MG Tablet 90 MG PO (08:15)
[2024-01-14] MEDS: Aspirin 81 MG TAB.CHEW PO (08:15)
[2024-01-14] MEDS: Losartan Potassium 50 MG Tablet PO (08:15)
[2024-01-14] MEDS: Clopidogrel Bisulfate 75 MG Tablet PO (08:15)
[2024-01-14] MEDS: Escitalopram Oxalate 10 MG Tablet 15 MG PO (08:15)
[2024-01-14] MEDS: Multivitamins,Therapeutic Tablet 1 TABLET PO (08:15)
[2024-01-14] MEDS: Multivitamin (Healthy Eyes) Capsule 1 CAP PO ×2 (08:16→20:20)
[2024-01-14 09:50] VITALS: BP 127/68; PULSE 61; RESP 17; TEMP 36.3; O2SAT 96
[2024-01-14 17:00] VITALS: BMI 26.2
[2024-01-14 20:00] VITALS: BP 137/66; PULSE 62; RESP 17; TEMP 36.6; O2SAT 96; BMI 26.2
[2024-01-14] MEDS: Atorvastatin Calcium 80 MG Tablet PO (20:20)
[2024-01-14] MEDS: Acetaminophen 325 MG Tablet 650 MG PO (20:22)
--- NOTE | 2024-01-15 00:55 | NURSING ---
Reviewed and agree with Naida CUMMINGS, documentation and assessment charting.
[2024-01-15] MEDS: Levothyroxine 50 MCG Tablet PO (05:05)
[2024-01-15] MEDS: Enoxaparin 40 MG/0.4 ML Syringe SC (05:05)
[2024-01-15 07:28] VITALS: BP 101/56; PULSE 61; RESP 16; TEMP 36.8; O2SAT 96
[2024-01-15] MEDS: Escitalopram Oxalate 10 MG Tablet 15 MG PO (08:34)
[2024-01-15] MEDS: Losartan Potassium 50 MG Tablet PO (08:34)
[2024-01-15] MEDS: Multivitamin (Healthy Eyes) Capsule 1 CAP PO ×2 (08:34→21:15)
[2024-01-15] MEDS: Clopidogrel Bisulfate 75 MG Tablet PO (08:34)
[2024-01-15] MEDS: Aspirin 81 MG TAB.CHEW PO (08:34)
[2024-01-15] MEDS: Multivitamins,Therapeutic Tablet 1 TABLET PO (08:34)
[2024-01-15] MEDS: Arthritis Pain Compound 60 CLICK TUBE TOPICAL ×2 (08:35→21:14)
[2024-01-15] MEDS: buPROPion (XL) 150 MG TABLET.XL PO (08:35)
[2024-01-15] MEDS: NIFEdipine 30 MG Tablet 90 MG PO (08:41)
[2024-01-15] MEDS: Senna/Docusate Sodium 1 Tablet 2 TABLET PO ×2 (08:43→21:14)
[2024-01-15 08:46] VITALS: BP 129/62
[2024-01-15 13:39] VITALS: BMI 26.2
[2024-01-15 20:55] VITALS: BP 114/58; PULSE 67; RESP 16; TEMP 37.1; O2SAT 98; BMI 26.2
[2024-01-15] MEDS: Acetaminophen 325 MG Tablet 650 MG PO (21:14)
[2024-01-15] MEDS: Atorvastatin Calcium 80 MG Tablet PO (21:15)
[2024-01-16] MEDS: Enoxaparin 40 MG/0.4 ML Syringe SC (06:02)
[2024-01-16] MEDS: Levothyroxine 50 MCG Tablet PO (06:03)
[2024-01-16] MEDS: Clopidogrel Bisulfate 75 MG Tablet PO (08:10)
[2024-01-16] MEDS: Multivitamin (Healthy Eyes) Capsule 1 CAP PO ×2 (08:10→21:13)
[2024-01-16] MEDS: NIFEdipine 30 MG Tablet 90 MG PO (08:10)
[2024-01-16] MEDS: Losartan Potassium 50 MG Tablet PO (08:10)
[2024-01-16] MEDS: buPROPion (XL) 150 MG TABLET.XL PO (08:11)
[2024-01-16] MEDS: Aspirin 81 MG TAB.CHEW PO (08:11)
[2024-01-16] MEDS: Multivitamins,Therapeutic Tablet 1 TABLET PO (08:12)
[2024-01-16] MEDS: Arthritis Pain Compound 60 CLICK TUBE TOPICAL ×2 (08:12→21:13)
[2024-01-16] MEDS: Senna/Docusate Sodium 1 Tablet 2 TABLET PO (08:13)
[2024-01-16] MEDS: Escitalopram Oxalate 10 MG Tablet 15 MG PO (08:13)
[2024-01-16 08:33] VITALS: BP 120/67; PULSE 64; RESP 16; TEMP 36.9; O2SAT 99
[2024-01-16 10:56] VITALS: BMI 26.2
[2024-01-16] MEDS: Atorvastatin Calcium 80 MG Tablet PO (21:13)
[2024-01-16 22:00] VITALS: BP 142/72; PULSE 63; RESP 18; TEMP 37.1; O2SAT 96
[2024-01-17 01:58] VITALS: BMI 26.2
[2024-01-17] MEDS: Enoxaparin 40 MG/0.4 ML Syringe SC (05:53)
[2024-01-17] MEDS: Levothyroxine 50 MCG Tablet PO (05:53)
[2024-01-17 07:45] VITALS: BP 130/68; PULSE 61; RESP 16; TEMP 36.4; O2SAT 97
[2024-01-17] MEDS: Multivitamins,Therapeutic Tablet 1 TABLET PO (09:00)
[2024-01-17] MEDS: Aspirin 81 MG TAB.CHEW PO (09:00)
[2024-01-17] MEDS: Losartan Potassium 50 MG Tablet PO (09:01)
[2024-01-17] MEDS: Escitalopram Oxalate 10 MG Tablet 15 MG PO (09:01)
[2024-01-17] MEDS: Multivitamin (Healthy Eyes) Capsule 1 CAP PO ×2 (09:01→22:07)
[2024-01-17] MEDS: NIFEdipine 30 MG Tablet 90 MG PO (09:02)
[2024-01-17] MEDS: Clopidogrel Bisulfate 75 MG Tablet PO (09:02)
[2024-01-17] MEDS: buPROPion (XL) 150 MG TABLET.XL PO (09:02)
[2024-01-17] MEDS: Arthritis Pain Compound 60 CLICK TUBE TOPICAL ×2 (09:03→22:05)
[2024-01-17] MEDS: Senna/Docusate Sodium 1 Tablet 2 TABLET PO ×2 (09:10→22:07)
[2024-01-17 10:41] VITALS: BMI 26.2
[2024-01-17 22:00] VITALS: BP 106/71; PULSE 63; RESP 18; TEMP 36.9; O2SAT 96
[2024-01-17] MEDS: Atorvastatin Calcium 80 MG Tablet PO (22:07)
[2024-01-18 01:30] VITALS: BMI 26.2
[2024-01-18] MEDS: Enoxaparin 40 MG/0.4 ML Syringe SC (06:42)
[2024-01-18] MEDS: Levothyroxine 50 MCG Tablet PO (06:42)
[2024-01-18] MEDS: Multivitamins,Therapeutic Tablet 1 TABLET PO (09:17)
[2024-01-18] MEDS: Arthritis Pain Compound 60 CLICK TUBE TOPICAL ×2 (09:17→22:40)
[2024-01-18] MEDS: Aspirin 81 MG TAB.CHEW PO (09:17)
[2024-01-18] MEDS: Multivitamin (Healthy Eyes) Capsule 1 CAP PO ×2 (09:17→22:40)
[2024-01-18] MEDS: Losartan Potassium 50 MG Tablet PO (09:17)
[2024-01-18] MEDS: Clopidogrel Bisulfate 75 MG Tablet PO (09:18)
[2024-01-18] MEDS: Escitalopram Oxalate 10 MG Tablet 15 MG PO (09:18)
[2024-01-18] MEDS: NIFEdipine 30 MG Tablet 90 MG PO (09:19)
[2024-01-18] MEDS: Senna/Docusate Sodium 1 Tablet 2 TABLET PO ×2 (09:19→22:40)
[2024-01-18] MEDS: buPROPion (XL) 150 MG TABLET.XL PO (09:20)
[2024-01-18 09:51] VITALS: BP 155/68; PULSE 65; RESP 16; TEMP 36.3; O2SAT 96
--- NOTE | 2024-01-18 12:02 | PCM.PROGNOTE ---
Subjective Subjective Octaviano was seen on team rounds today. His brother Minor was present in the room. All questions were appropriately answered to their satisfaction. Afebrile VSS-orthostatics are negative. Systolic blood pressure is still occasionally elevated but the diastolics are within goal. Procardia XL was recently increased to 90 mg and it is having a positive effect on his blood pressure. Maintaining appropriate oxygen saturation on RA Oral intake - FOOD very good FLUIDS adequate Having regular bowel movements. Discussed with nursing - no problems that need addressed Reviewed the THERAPY notes Medication list reviewed. Octaviano denies lightheadedness, vertigo, CP, SOB at rest, SOB with exertion, cough, nausea, vomiting, abd pain, diarrhea, constipation, dysuria, calf pain and ankle swelling. He tells me that he is happy being here in rehab but, he does not know how it will be going back to [facility]. He is aware that he will be going to the SNF part of [facility] and there is no guarantee he will make is back to assisted living. Minor is going to transport Octaviano to [facility] at [place]. Minor is going to come in for family training with the therapists to learn how to best safely assist Octaviano. Objective Data Objective Data Vital Signs: Vital Signs Temp Pulse Resp BP Pulse Ox O2 Del Method 97.4 F L 65 16 155/68 H 96 Room Air 01/18/24 09:51 01/18/24 09:51 01/18/24 09:51 01/18/24 09:51 01/18/24 09:51 01/18/24 09:51 Oxygen Delivery Method Room Air Weight: 187 lb 2.759 oz Body Mass Index (BMI) 26.2 Intake & Output: Intake and Output for Last 24 Hours 01/16/24 01/17/24 01/18/24 23:59 23:59 23:59 Intake Total 1190 / 1390 1300 / 1300 520 / 520 Output Total 1100 / 1100 800 / 800 200 / 200 Balance 90 / 290 500 / 500 320 / 320 Lab / Micro Data 01/19/24 05:52 01/19/24 05:52 Micro: Microbiology 01/02/24 17:00 Stool Stool Occult Blood (TIMOTHY) - Final Occult Blood Positive Physical Exam Const alert, oriented x3 and no apparent distress Constitutional Narrative: Very pleasant and talkative. General Appearance: cooperative HEENT moist oral mucous membranes Neck supple General: trachea midline Resp normal respiratory effort and clear to auscultation bilaterally Resp Narrative: No conversational dyspnea Cardio Cardio Narrative: Regular rate and rhythm, no murmur, no gallop. No ectopy. GI normal to inspection, nondistended, normoactive bowel sounds, soft to palpation and non-tender GI Narrative: . Extremity no calf tenderness Extremity Narrative: No ankle edema. 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 Continue therapy 2. Check the blood pressures in both arms today. Blood pressure is coming under better control with increasing the Procardia XL to 90 mg daily. Still with a rare elevated systolic blood pressure. Denies lightheadedness and has no no hypotension. 3. Check orthostatics-sitting and then after he has had a prolonged period of standing with therapy. Charges/Coding Visit Charges Inpatient E&M: 80512 Subs Hosp L2
[2024-01-18 12:06] VITALS: BP 125/74; BP 138/79; BP 142/69; PULSE 58; PULSE 60
--- NOTE | 2024-01-18 13:48 | CASEMGMT ---
Addendum entered by Zulema Cleveland 01/21/24 10:24: PASRR completed. Original Note: Social Work IDT met with patient and brother for Team meeting. Discussed patient's progress in PT/OT/ST/SN. Educated to [facility] insurance with NRD 01/18. Insurance states the IDT to set DC date. IDT set DC for 01/20, and pt currently does not meet AL criteria, per [facility], thus pt will DC to [facility]. Pt and brother agreeable. Brother can transport. [facility]; they can start precert. Plan: DC 01/20 to [facility], skilled Zulema Cleveland, ANGELITA KATZW
[2024-01-18 22:00] VITALS: RESP 16; O2SAT 96
[2024-01-18] MEDS: Atorvastatin Calcium 80 MG Tablet PO (22:40)
[2024-01-18 22:49] VITALS: BP 133/72; PULSE 91; RESP 16; TEMP 36.6; O2SAT 95
[2024-01-19 00:52] VITALS: BMI 26.2
[2024-01-19 06:12] LABS: Hematocrit 37.6 % (40-54); Hemoglobin 12.1 g/dL (13.0-16.5); Mean Corp Hgb Conc 32.2 g/dL (32-36); Mean Corpuscular Hgb 30.6 pg (27.0-32.0); Mean Corpuscular Volume 94.9 fL (80-94); Mean Platelet Vol. 8.3 fl (6.2-12.0); Platelet Count 207 K/mm3 (150-450); RBC Distribution Width CV 12.2 % (11.6-14.6); RBC Distribution Width SD 42.5 fl (35.1-43.9); Red Blood Count 3.96 M/mm3 (4.6-6.2); White Blood Count 7.2 K/mm3 (4.4-11.0)
[2024-01-19] MEDS: Enoxaparin 40 MG/0.4 ML Syringe SC (06:27)
[2024-01-19] MEDS: Levothyroxine 50 MCG Tablet PO (06:27)
[2024-01-19 06:51] LABS: ALB/GLOB Ratio 1.1 RATIO (0.9-2.4); AST(SGOT) 16 U/L (15-37); Alanine Aminotransfer ALT/SGPT 28 U/L (16-61); Albumin, Serum 3.6 g/dL (3.2-5.0); Alkaline Phosphatase 118 U/L (45-117); Anion Gap 10 (5-15); BUN 19 mg/dL (7-18); BUN/Creat Ratio 14.5 RATIO (10-20); Calcium,Total 9.8 mg/dL (8.5-10.1); Chloride 109 mmol/L (98-107); Creatinine, Serum 1.31 mg/dL (0.70-1.30); EST Glomerular Filtration Rate 56 mL/min (>60); Est Glom Filt Rate - Afr Amer 67 mL/min (>60); Estimated Creatinine Clearance 45.66 ml/min; Globulin 3.3 g/dL (2.2-4.2); Glucose 101 mg/dL (74-106); Phosphorus 3.8 mg/dL (2.5-4.9); Potassium 4.3 mmol/L (3.5-5.1); Protein, Total 6.9 g/dL (6.4-8.2); Sodium Level 144 mmol/L (136-145)
[2024-01-19 08:39] VITALS: BP 142/74; PULSE 61; RESP 16; TEMP 36.4; O2SAT 96
[2024-01-19] MEDS: Clopidogrel Bisulfate 75 MG Tablet PO (08:56)
[2024-01-19] MEDS: Arthritis Pain Compound 60 CLICK TUBE TOPICAL ×2 (08:56→21:52)
[2024-01-19] MEDS: buPROPion (XL) 150 MG TABLET.XL PO (08:56)
[2024-01-19] MEDS: NIFEdipine 30 MG Tablet 90 MG PO (08:56)
[2024-01-19] MEDS: Multivitamin (Healthy Eyes) Capsule 1 CAP PO ×2 (08:56→21:52)
[2024-01-19] MEDS: Escitalopram Oxalate 10 MG Tablet 15 MG PO (08:57)
[2024-01-19] MEDS: Aspirin 81 MG TAB.CHEW PO (08:59)
[2024-01-19] MEDS: Multivitamins,Therapeutic Tablet 1 TABLET PO (08:59)
[2024-01-19] MEDS: Losartan Potassium 50 MG Tablet PO (09:00)
[2024-01-19] MEDS: Senna/Docusate Sodium 1 Tablet 2 TABLET PO ×2 (09:01→21:52)
[2024-01-19 16:49] VITALS: BMI 26.2
[2024-01-19 19:29] VITALS: BP 123/64; PULSE 64; RESP 16; TEMP 36.7; O2SAT 97
[2024-01-19 19:51] VITALS: BMI 26.2
[2024-01-19 19:55] VITALS: PULSE 64; RESP 16; O2SAT 96
[2024-01-19] MEDS: Atorvastatin Calcium 80 MG Tablet PO (21:52)
[2024-01-19 21:58] VITALS: BMI 26.2
[2024-01-20 06:00] VITALS: BMI 25.8
[2024-01-20] MEDS: Enoxaparin 40 MG/0.4 ML Syringe SC (06:31)
[2024-01-20] MEDS: Levothyroxine 50 MCG Tablet PO (06:31)
[2024-01-20 07:31] VITALS: BP 125/65; PULSE 63; RESP 16; TEMP 36.4; O2SAT 96
[2024-01-20] MEDS: NIFEdipine 30 MG Tablet 90 MG PO (08:39)
[2024-01-20] MEDS: Arthritis Pain Compound 60 CLICK TUBE TOPICAL ×2 (08:39→19:58)
[2024-01-20] MEDS: Multivitamin (Healthy Eyes) Capsule 1 CAP PO ×2 (08:40→19:58)
[2024-01-20] MEDS: Senna/Docusate Sodium 1 Tablet 2 TABLET PO ×2 (08:40→19:58)
[2024-01-20] MEDS: Escitalopram Oxalate 10 MG Tablet 15 MG PO (08:40)
[2024-01-20] MEDS: Aspirin 81 MG TAB.CHEW PO (08:40)
[2024-01-20] MEDS: Clopidogrel Bisulfate 75 MG Tablet PO (08:40)
[2024-01-20] MEDS: Multivitamins,Therapeutic Tablet 1 TABLET PO (08:40)
[2024-01-20] MEDS: Losartan Potassium 50 MG Tablet PO (08:40)
[2024-01-20] MEDS: buPROPion (XL) 150 MG TABLET.XL PO (08:41)
--- NOTE | 2024-01-20 10:35 | PCM.PROGNOTE ---
Subjective Subjective Afebrile VSS-blood pressure this morning is 125/65 and the blood pressure last evening was 123/64. Will continue the increased dose of Procardia XL at 90 mg. Maintaining appropriate oxygen saturation on -96 to 97%. Oral intake - FOOD good FLUIDS fair Discussed with nursing - no problems that need addressed Reviewed the THERAPY notes Medication list reviewed. Lab drawn yesterday shows the hemoglobin to be up to 12.1 now from 11.3 last week. White blood cell count and platelets are within normal limits. Sodium is 144 and the potassium is stable at 4.3. The BUN is 19 which is down from 25 last week and the creatinine is 1.31 which is within his baseline. Calcium, phosphorus and magnesium are all within normal limits and LFTs are also normal. Minor is here today for family training. Octaviano denies cephalgia, neck pain, chest pain, shortness of breath, cough, sore throat, palpitations, nausea/vomiting/abdominal pain, diarrhea/constipation, dysuria and calf tenderness. He has no complaints today. Objective Data Objective Data Vital Signs: Vital Signs Temp Pulse Resp BP Pulse Ox O2 Del Method 97.6 F L 63 16 125/65 H 96 Room Air 01/20/24 07:31 01/20/24 07:31 01/20/24 07:31 01/20/24 07:31 01/20/24 07:31 01/20/24 07:31 Oxygen Delivery Method Room Air Weight: 184 lb 11.958 oz Body Mass Index (BMI) 25.8 Intake & Output: Intake and Output for Last 24 Hours 01/18/24 01/19/24 01/20/24 23:59 23:59 23:59 Intake Total 520 / 520 1230 / 1350 240 / 240 Output Total 650 / 650 1000 / 1250 250 / 250 Balance -130 / -130 230 / 100 -10 / -10 Lab / Micro Data 01/19/24 05:52 01/19/24 05:52 Micro: Microbiology 01/02/24 17:00 Stool Stool Occult Blood (TIMOTHY) - Final Occult Blood Positive Physical Exam Const alert, oriented x3 and no apparent distress General Appearance: cooperative HEENT HEENT Narrative: Persistently dry MM due to poor fluid intake. Resp normal respiratory effort, normal air movement and clear to auscultation bilaterally Effort and Inspection: able to speak in complete sentences Cardio regular rate, regular rhythm, no murmurs and no gallops Cardio Narrative: no ectopy GI normal to inspection, nondistended, normoactive bowel sounds, soft to palpation and non-tender GI Narrative: No guarding with palpation. Having regular soft bowel movements. Extremity no calf tenderness and no pedal edema Skin Skin Narrative: No rashes General Skin Exam: no breakdown Neuro Neuro Narrative: See NIHSS scoring Psych cooperative and affect normal Appearance: appropriate and well kempt Attitude: calm Activity / Motor Behavior: appropriate eye contact Assessment & Plan Assessment/Plan (1) Debility: (2) Acute stroke due to ischemia: PLAN: Transfer to intermediate facility for ongoing PT/OT/ST. 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 Continue therapy. (5) Normochromic normocytic anemia: PLAN: Had heme + stool while in rehab but, HGB is increasing. No c/o epigastric pain, nausea or heartburn. 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 daily and Wellbutrin XL 150 mg daily. (7) Hypertension: PLAN: Goal BP is consistently < 130/80. systolic BP still mildly above goal at [place]. Cozaar increased from 50 mg daily to 100 mg daily. Will need a follow up BMP in 1 week to make sure K is not increasing. Other antihypertensives include Procardia XL 90 mg daily. PLAN: Plan 1. Continue therapy 2. Plan transfer to [facility] on 01/21/2024 if we receive precertification. Charges/Coding Visit Charges Inpatient E&M: 46667 [facility] Hosp L1
[2024-01-20 13:37] VITALS: BMI 25.8
[2024-01-20 19:45] VITALS: PULSE 61; RESP 20; O2SAT 98; BMI 25.8
[2024-01-20] MEDS: Atorvastatin Calcium 80 MG Tablet PO (19:58)
[2024-01-20] MEDS: Acetaminophen 325 MG Tablet 650 MG PO (19:59)
[2024-01-20 20:13] VITALS: BP 156/72; PULSE 61; RESP 20; TEMP 36.4; O2SAT 98
[2024-01-21] MEDS: Levothyroxine 50 MCG Tablet PO (06:59)
[2024-01-21] MEDS: Enoxaparin 40 MG/0.4 ML Syringe SC (06:59)
[2024-01-21] MEDS: Escitalopram Oxalate 10 MG Tablet 15 MG PO (08:23)
[2024-01-21] MEDS: Clopidogrel Bisulfate 75 MG Tablet PO (08:23)
[2024-01-21] MEDS: Senna/Docusate Sodium 1 Tablet 2 TABLET PO ×2 (08:23→20:15)
[2024-01-21] MEDS: NIFEdipine 30 MG Tablet 90 MG PO (08:23)
[2024-01-21] MEDS: buPROPion (XL) 150 MG TABLET.XL PO (08:23)
[2024-01-21] MEDS: Losartan Potassium 50 MG Tablet PO (08:24)
[2024-01-21] MEDS: Aspirin 81 MG TAB.CHEW PO (08:24)
[2024-01-21] MEDS: Multivitamins,Therapeutic Tablet 1 TABLET PO (08:24)
[2024-01-21] MEDS: Multivitamin (Healthy Eyes) Capsule 1 CAP PO ×2 (08:24→20:15)
[2024-01-21] MEDS: Arthritis Pain Compound 60 CLICK TUBE TOPICAL ×2 (08:25→20:23)
[2024-01-21 08:53] VITALS: BP 134/78; PULSE 63; RESP 16; TEMP 36.3; O2SAT 95
--- NOTE | 2024-01-21 10:07 | PCM.TXEXTCAR ---
Diet Diet Order/Speech Therapy: 12/30/23 12:37 Diet: Cardiac - Heart Healthy Routine Orders/Code Status Enema Type: Fleetz Enema Frequency: Daily PRN Suppository Type: Dulcolax 10mg Suppository Frequency: Daily PRN Change Rivera Catheter: N/A O2 Liters per Minute: 1-2 LPM O2 Frequency: PRN Keep PO Greater than or Equal to (%): 90 Routine Lab Work: - (TSH and T4 in 6 weeks. Lipid panel and Liver panel in 6 weeks) Code Status: DNRCC-A (No intubation) Wound(s) rt neck: Wound Type: Surgical Incision (R neck from CEA) rt neck/clavicle: Wound Type: Surgical Incision left side head: Wound Type: pt scratched skin tag Suggestions for Active Care Positions to Avoid: prolonged sitting Therapies Weight Bearing: Full weight bearing Physical Therapy: Eval and Treat Occupational Therapy: Eval and Treat Speech Therapy: Eval and Treat Problem/Diagnosis (1) Debility: Status: Acute Code(s): R53.81 - Other malaise (2) Acute stroke due to ischemia: Status: Acute Code(s): I63.9 - Cerebral infarction, unspecified Plan: Transfer to group home facility for ongoing PT/OT/ST. Comment: R basal ganglia. Has had prior strokes in the high right parietal and left occipital lobes. 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 (5) Left homonymous superior quadrantanopia: Status: Acute Code(s): H53.462 - Homonymous bilateral field defects, left side Comment: Vision has returned in the Left eye medial superior field but, still with visual cut in the R eye superior lateral visual area. (6) Muscle weakness of left upper extremity: Status: Acute Code(s): M62.81 - Muscle weakness (generalized) Comment: Improving. (7) Normochromic normocytic anemia: Status: Acute Code(s): D64.9 - Anemia, unspecified Comment: HGB at NC is up to 12.1 (8) Depression: Status: Chronic Code(s): F32.A - Depression, unspecified Plan: Continue Lexapro 15 mg p.o. daily and Wellbutrin XL 150 mg daily. Comment: Good appetite now and sleeping well at night. No longer talking about and is very motivated to get better. No seizure activity since restarted on Wellbutrin. Pleasant and always cooperative. (9) S/P carotid endarterectomy: Status: Acute Code(s): Z98.890 - Other specified postprocedural states Comment: 12/28/[address] Zuhair Huynh at [facility]. (10) Chronic renal failure: Status: Chronic Code(s): N18.9 - Chronic kidney disease, unspecified Comment: Stage 2-3a. Stable. Needs encouragement to increase fluid intake. He does not like plain water........prefers some flavor in his fluids. (11) Hypertension: Status: Chronic Code(s): I10 - Essential (primary) hypertension Plan: Goal BP is consistently < 130/80. systolic BP still mildly above goal at NC. Cozaar increased from 50 mg daily to 100 mg daily. Will need a follow up BMP in 1 week to make sure K is not increasing. (12) Hypothyroidism: Status: Acute Code(s): E03.9 - Hypothyroidism, unspecified Plan: Recheck a TSH and T4 in 6 weeks. (13) Hypercholesterolemia: Status: Acute Code(s): E78.00 - Pure hypercholesterolemia, unspecified Plan: Recheck a lipid panel and liver panel in 6 weeks. LDL has been within goal at < 70. HDL is low. Consider adding Niacin at to increase HDL. Plan 1. Transfer to [facility] for ongoing PT,OT and ST. Allergies/Procedures Done in Hospital Allergies No Known Allergies Allergy (Verified 12/23/23 14:24) Procedures: 2-D Echocardiogram (Echocardiogram was done on 12/24/2023. Left ventricular ejection fraction is 60%. The bubble study was negative for right to left shunt. It was a technically difficult study due to poor windows.) Type of Care/Length of Stay Estimated LOS: More Than 30 Days Type of Care Needed: Skilled Rehab Potential: Good Prognosis: Good Additional Orders/Day of Discharge H&P will serve as current which was dated: 12/30/23 Day of Discharge: 01/21/24 Dietary and Speech Recommendations Dietitian Recommendations/Changes: Continue Cardiac diet to manage medical conditions. Follow Up Care Please follow up with your Primary Care Physician in: 2 weeks for a BP check. Please Follow Up With: Zuhair Huynh MD When: 6 weeks Please Follow Up With: Aba Peña MD When: 02/02/24 at 10:20 AM Discharge Plan Admission Admit Date/Time: 12/30/23 12:00 Primary Reason for Your Visit: Post stroke debility Attending Provider: Ely Wisdom Primary Care Provider: Dani Fallon Discharge Orders/Prescriptions Prescriptions: New nifedipine 30 mg Tablet Extended Release 24hr 90 mg PO DAILY Qty: 1 0RF sennosides-docusate sodium [Stool Softener-Stimulant Laxat] 8.6-50 mg Tablet 2 tab PO BID Qty: 1 0RF escitalopram oxalate 10 mg Tablet 15 mg PO DAILY Qty: 1 0RF bupropion HCl 150 mg Tablet Extended Release 24 Hr 150 mg PO DAILY Qty: 1 0RF losartan [Cozaar] 100 mg tablet 100 mg PO DAILY Qty: 1 0RF diclofenac sodium [Voltaren Arthritis Pain] 1 % gel 2 g topical BID PRN PRN (Reason: painful joint) Qty: 100 0RF Rx Instructions: apply to painful joints BID Continued aspirin 81 mg tablet,chewable 1 tab PO DAILY atorvastatin 80 mg tablet 80 mg PO QHS clopidogrel 75 mg tablet 75 mg PO DAILY levothyroxine 50 mcg tablet 50 mcg PO DAILY multivitamin Tablet 1 tab PO DAILY PreserVision AREDS-2 250-90-40-1 mg capsule 1 tab PO BID acetaminophen 500 mg capsule 500 mg PO BID Discontinued citalopram [Celexa] 40 mg tablet 20 mg PO DAILY losartan 50 mg tablet 50 mg PO DAILY nifedipine 60 mg tablet extended release 24hr 60 mg PO DAILY docusate sodium [Colace] 100 mg capsule 100 mg PO BID Referrals / Follow Up: Aba Peña-Neurologist [Other] - 02/02/24 10:20 am Dani Fallon MD [Primary Care Provider] - Disposition Disposition (needs filled in before D/C Order can be placed): [facility] (8) Depression Qualifiers: Depression Type: persistent depressive disorder Qualified Code(s): F34.1 - Dysthymic disorder (10) Chronic renal failure Qualifiers: Chronic kidney disease stage: stage 3 (moderate) Chronic kidney disease stage 3 subtype: stage 3a (GFR 45-59) Qualified Code(s): N18.31 - Chronic kidney disease, stage 3a
[2024-01-21 10:43] VITALS: BMI 25.8
--- NOTE | 2024-01-21 10:52 | EX.DISCHREH ---
Providers Date of Admission: 12/30/23 Date of Discharge: 01/21/24 Primary Care Physician: Dr. Dani Fallon MD Reason For Visit: RIGHT BASAL GANGLIA ISCHEMIC CVA Diagnosis Discharge Diagnosis (1) Debility: Status: Acute Code(s): R53.81 - Other malaise (2) Acute stroke due to ischemia: Status: Chronic Code(s): I63.9 - Cerebral infarction, unspecified Plan: [facility] to [facility] facility for ongoing PT/OT/ST. 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 At admission to rehab he also had visual loss in the medial upper quadrant of the left eye also. Visual loss in the R eye may be due to the old CVA in the Left occipital lobe. (6) Muscle weakness of left upper extremity: Status: Acute Code(s): M62.81 - Muscle weakness (generalized) Plan: Improving. Continue therapy. (7) Normochromic normocytic anemia: Status: Chronic Code(s): D64.9 - Anemia, unspecified Plan: Had heme + stool while in rehab but, HGB is increasing. No c/o epigastric pain, nausea or heartburn. (8) Depression: Status: Chronic Code(s): F32.A - Depression, unspecified Qualifiers: Depression Type: persistent depressive disorder Qualified Code(s): F34.1 - Dysthymic disorder Plan: Continue Lexapro 15 mg p.o. daily and Wellbutrin XL 150 mg daily. (9) S/P carotid endarterectomy: Status: Chronic Code(s): Z98.890 - Other specified postprocedural states Plan: R carotid on 12/28/2023. Will need follow-up in approximately [address] Bradley. Incision is healing well with no dehiscence, no lynn-incisional erythema and no discharge. Swelling has markedly improved since admission to rehab. (10) Chronic renal failure: Status: Chronic Code(s): N18.9 - Chronic kidney disease, unspecified Qualifiers: Chronic kidney disease stage: stage 3 (moderate) Chronic kidney disease stage 3 subtype: stage 3a (GFR 45-59) Qualified Code(s): N18.31 - Chronic kidney disease, stage 3a (11) Hypertension: Status: Chronic Code(s): I10 - Essential (primary) hypertension Plan: Goal BP is consistently < 130/80. systolic BP still mildly above goal at SD. Cozaar increased from 50 mg daily to 100 mg daily. Will need a follow up BMP in 1 week to make sure K is not increasing. Other antihypertensives include Procardia XL 90 mg daily. (12) Hypothyroidism: Status: Acute Code(s): E03.9 - Hypothyroidism, unspecified Plan: Recheck a TSH and T4 in 6 weeks. TSH on 12/24/2023 was 5.41. (13) Hypercholesterolemia: Status: Acute Code(s): E78.00 - Pure hypercholesterolemia, unspecified Plan: Recheck a lipid panel and liver panel in 6 weeks. LDL has been within goal at < 70. HDL is low. Consider adding Niacin at to increase HDL. (14) Heme positive stool: Status: Acute Code(s): R19.5 - Other fecal abnormalities Plan: No sx of PUD/GERD. Not started on a PPI or H2 alayna. HGB has been increasing without intervention. Plan 1. Transfer to [facility] nursing for ongoing PT,OT and ST. Medications at Discharge Home Medications acetaminophen 500 mg capsule 500 mg PO BID pain 12/23/23 aspirin 81 mg chewable tablet 1 tab PO DAILY blood thinner 12/23/23 atorvastatin 80 mg tablet 80 mg PO QHS cholesterol 12/23/23 clopidogrel 75 mg tablet 75 mg PO DAILY blood thinner 12/23/23 levothyroxine 50 mcg tablet 50 mcg PO DAILY thyroid 12/23/23 multivitamin 1 tab PO DAILY vitamin 12/23/23 vit C 250 mg-vit E 90 mg-zinc 40 mg-copper 1 [id number] capsule (PreserVision AREDS-2) 1 tab PO BID eye health 12/23/23 bupropion HCl 150 mg 24 hr tablet, extended release 150 mg PO DAILY #1 TAB 01/21/24 diclofenac sodium 1 % topical gel (Voltaren Arthritis Pain) 2 g topical BID PRN PRN painful joint #100 grams 01/21/24 escitalopram oxalate 10 mg tablet 15 mg (1.5 x 10 mg) PO DAILY #1 TAB 01/21/24 losartan 100 mg tablet (Cozaar) 100 mg PO DAILY #1 TAB 01/21/24 nifedipine 30 mg tablet,extended release 24 hr 90 mg (3 x 30 mg) PO DAILY #1 TAB 01/21/24 sennosides 8.6 mg-docusate sodium 50 mg tablet (Stool Softener-Stimulant Laxative) 2 tab PO BID #1 TAB 01/21/24 Hospital Course Operations - (Right carotid endarterectomy on 12/28/[address] Zuhair Bradley.) Procedures 2-D Echocardiogram (12/24/2023. It was a difficult study with poor visual windows. 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 He was seen in the ED at [facility] and admitted to the ICU on the hospitalist service. TNK was given in the ED. CTA of the H&N showed high-grade stenosis at the origin of the right internal carotid artery. Transthoracic echocardiogram showed a normal ejection fraction of 60%. It was a poor study due to suboptimal images. The bubble contrast study was considered negative for right to left shunt. MRI on 12/24/2023 showed chronic microvascular changes and acute ischemic focus in the right basal ganglia. There was encephalomalacia in the high right parietal and left occipital lobes. Consult was obtained with vascular surgery regarding severe right carotid stenosis. He was seen by Dr. Zuhair Bradley on 12/24/2023. Dr. Bradley recommended a right carotid endarterectomy in 4 to 10 days post stroke. He was taken to surgery on 12/28/2023 for a right carotid endarterectomy. Postoperatively he had increased left lower extremity weakness but this improved over the next 24 hours and prior to discharge from the acute side of the hospital he was hemodynamically stable and at his baseline neurologically prior to the surgery. While in the hospital he was evaluated by PT/OT/ST and admission to acute rehab at discharge from the hospital was recommended. Mr. Bishop was transported to the acute inpatient rehab unit at [facility] on 12/30/2023 for 3 hours of therapy daily to restore function/independence at or near his level prior to this third stroke. Early in the admission he was quite depressed. He had been taking 20 mg of Celexa and Wellbutrin prior to admission to the hospital. Wellbutrin had been discontinued due to the risk for seizures with the new stroke. Wellbutrin is known to lower seizure threshold. the Celexa had been decreased to 10 mg daily. Celexa was increased to 15 mg daily and after several days with no seizure activity Wellbutrin was restarted. He had been talking about alot and this has resolved. He is now motivated to get better. He is sleeping through the night and has a good appetite and intake. He has not had any seizure activity. BP did go up with restarting Wellbutrin and the Procardia XL was increased to 90 mg daily. This help with BP control but, at the time of DC from rehab the systolics are still mildly elevated. Cozaar was increased to 100 mg daily at the time of DC from rehab. He will need to have a BMP in 1 week to check kidney function and potassium with the increase in the ARB. Octaviano did very well on rehab and has made steady progress. At the time of DC he is now able to partially shrug the Left shoulder and he is able to lift the left arm off the bed. 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 At admission to rehab he had a left superior quadrantanopia but at the time of discharge he now has vision in the left eye in the upper medial quadrant. He has persistent loss of vision in the right eye in the upper outer quadrant but this may be secondary to the prior stroke in the left occipital lobe. He is ambulating with a quad cane up to 117 feet at light contact-guard assist. He is able to ascend/descend three 4 inch steps and two 6 inch steps with 1 handrail at contact-guard assist. He is able to do 8 sit to stands in 30 seconds. He is supervision/set up with eating, grooming and upper body dressing. Requiring minimal assistance with lower body dressing with the use of adaptive equipment. He is moderate assist for toileting and toilet transfer. He is contact-guard assist with tub/shower transfer. He is doing much better with word finding. Dysarthria has resolved and I do not detect a facial droop at SD. Reading has always been a problem for him, even prior to the strokes but, he has made some improvement with daily ST. Octaviano was discharged on 01/21/24 to [facility] for continued prison for PT/OT/ST. He should have a TSH and t4 in 6 weeks and also a Liver panel and lipid panel in 6 weeks. HDL is low and he benefit from adding Niaspan at night to his drug regimen. He will follow up with Neurology, Dr. Aba Peña, on 02/02/24. He should follow up with Dr. bradley in the next 4-6 weeks and he will also follow up with his PCP, Dr. Dain Fallon. Physical Exam Const alert, oriented x3 and no apparent distress General Appearance: cooperative HEENT head/scalp atraumatic HEENT Narrative: Persistently dry MM due to poor fluid intake. Eyes PERRL, EOMs intact bilaterally, conjunctivae normal and no scleral icterus General Eye: normal appearance of both eyes Neck no carotid bruits Neck Narrative: The incision in the R neck from recent CEA is healing and there is no dehiscence, no lynn-incisional erythema, no discharge and no significant lynn-incisional edema. Lymph Lymphatic: Negative for lymphadenopathy Resp normal respiratory effort, normal air movement and clear to auscultation bilaterally Effort and Inspection: able to speak in complete sentences Cardio regular rate, regular rhythm, no murmurs and no gallops Cardio Narrative: no ectopy GI normal to inspection, nondistended, normoactive bowel sounds, soft to palpation and non-tender GI Narrative: No guarding with palpation. Having regular soft bowel movements. Inspection: Negative for abdominal aortic bruit Back/Spine no CVA tenderness Extremity no calf tenderness and no pedal edema Skin Skin Narrative: No rashes General Skin Exam: no breakdown; Negative for jaundice Neuro Neuro Narrative: See NIHSS scoring Psych cooperative and affect normal Appearance: grossly normal, appropriate and well kempt Attitude: calm Activity / Motor Behavior: appropriate eye contact Speech: normal speech Weight / BMI Weight Weight: 184 lb 11.958 oz Body Mass Index (BMI) 25.8 ABG / Lab / Microbiology Data 01/19/24 05:52 01/19/24 05:52 Microbiology: Microbiology 01/02/24 17:00 Stool Stool Occult Blood (TIMOTHY) - Final Occult Blood Positive Indicators for Scoring Admitted with or Primary Diagnosis of CVA/Stroke: Yes Hx of CVA/Stroke: Yes Modified Rancho Score MRS Score at time of Evaluation: 4-Moderate/severe disability NIHSS NIHSS 1a. Level of Consciousness: Alert; keenly responsive 1b. LOC Questions: Answers one question correctly. (He could tell me that is March but, he told me he was 63.....he later was able to correct that and tell me that he was 83.) 1c. LOC Commands: Performs both tasks correctly. 2. Best Gaze: Normal 3. Visual: Partial hemianopia (Persistent visual field cut in the R eye in the upper outer quadrant. ) 4. Facial Palsy: Normal symmetrical movements 5a. Left Arm: Drift; arm drifts downward but doesn?t hit the bed (He had no movement against gravity at the admission to rehab. ) 5b. Right Arm: No drift; arm holds 90 (or 45) degrees for full 10 seconds 6a. Left Leg: No drift; leg holds 30-degree position for full 5 seconds 6b. Right Leg: No drift; leg holds 30-degree position for full 5 seconds 7. Limb Ataxia: Absent 8. Sensory: Ovnh-gn-pzrlfulh sensory loss; (He has intact sensation in the face and Upper extremities but has decreased sensation in both LE's.....can feel me touch him but, the pinprick feels dull BL. ) 9. Best Language: No aphasia; normal 10. Dysarthria: Normal 11. Extinction and Inattention: No abnormality Total: 4 (down from 8 at admission to rehab) Stroke Questions Stroke Team Activated: No D/C Instructions Please Follow Up With: Zuhair Bradley MD Meaningful Use Info Meaningful Use Diagnoses (Choose all that apply): Ischemic CVA CVA Therapy Assessed for PT,OT and/or ST?: Yes Ischemic Stroke Antithrombotic order at d/c?: Yes Dx of Atrial fib/flutter?: No Anticoagulant at discharge?: No Reason anticoagulant not ordered: Treatment not Indicated Statins at discharge?: Yes Primary Dx Acute Ischemic CVA?: Yes IV thrombolytic ordered during stay?: No Reason IV thrombolytic not ordered: Procedure not Indicated Discharge Plan Admission Admit Date/Time: 12/30/23 12:00 Primary Reason for Your Visit: Post stroke debility Attending Provider: Ely Wisdom Primary Care Provider: Dani Fallon Discharge Orders/Prescriptions Prescriptions: New nifedipine 30 mg Tablet Extended Release 24hr 90 mg PO DAILY Qty: 1 0RF sennosides-docusate sodium [Stool Softener-Stimulant Laxat] 8.6-50 mg Tablet 2 tab PO BID Qty: 1 0RF escitalopram oxalate 10 mg Tablet 15 mg PO DAILY Qty: 1 0RF bupropion HCl 150 mg Tablet Extended Release 24 Hr 150 mg PO DAILY Qty: 1 0RF losartan [Cozaar] 100 mg tablet 100 mg PO DAILY Qty: 1 0RF diclofenac sodium [Voltaren Arthritis Pain] 1 % gel 2 g topical BID PRN PRN (Reason: painful joint) Qty: 100 0RF Rx Instructions: apply to painful joints BID Continued aspirin 81 mg tablet,chewable 1 tab PO DAILY atorvastatin 80 mg tablet 80 mg PO QHS clopidogrel 75 mg tablet 75 mg PO DAILY levothyroxine 50 mcg tablet 50 mcg PO DAILY multivitamin Tablet 1 tab PO DAILY PreserVision AREDS-2 250-90-40-1 mg capsule 1 tab PO BID acetaminophen 500 mg capsule 500 mg PO BID Discontinued citalopram [Celexa] 40 mg tablet 20 mg PO DAILY losartan 50 mg tablet 50 mg PO DAILY nifedipine 60 mg tablet extended release 24hr 60 mg PO DAILY docusate sodium [Colace] 100 mg capsule 100 mg PO BID Referrals / Follow Up: Aba Peña-Neurologist [Other] - 02/02/24 10:20 am Dani Fallon MD [Primary Care Provider] - Disposition Disposition (needs filled in before D/C Order can be placed): [facility] Charges/Coding Visit Charges Inpatient E&M: 44051 Disch Hosp >30min
[2024-01-21 20:00] VITALS: BP 115/60; PULSE 72; RESP 16; TEMP 37.3; O2SAT 96; BMI 25.8
[2024-01-21] MEDS: Acetaminophen 325 MG Tablet 650 MG PO (20:15)
[2024-01-21] MEDS: Atorvastatin Calcium 80 MG Tablet PO (20:15)
[2024-01-22] MEDS: Enoxaparin 40 MG/0.4 ML Syringe SC (05:19)
[2024-01-22] MEDS: Levothyroxine 50 MCG Tablet PO (05:19)
[2024-01-22 08:43] VITALS: BP 120/71; PULSE 56; RESP 16; TEMP 36.6; O2SAT 95
[2024-01-22] MEDS: Aspirin 81 MG TAB.CHEW PO (09:05)
[2024-01-22] MEDS: Arthritis Pain Compound 60 CLICK TUBE TOPICAL (09:05)
[2024-01-22] MEDS: Multivitamins,Therapeutic Tablet 1 TABLET PO (09:05)
[2024-01-22] MEDS: Escitalopram Oxalate 10 MG Tablet 15 MG PO (09:06)
[2024-01-22] MEDS: Clopidogrel Bisulfate 75 MG Tablet PO (09:06)
[2024-01-22] MEDS: Multivitamin (Healthy Eyes) Capsule 1 CAP PO (09:06)
[2024-01-22] MEDS: Losartan Potassium 50 MG Tablet PO (09:06)
[2024-01-22] MEDS: NIFEdipine 30 MG Tablet 90 MG PO (09:07)
[2024-01-22] MEDS: Senna/Docusate Sodium 1 Tablet 2 TABLET PO (09:07)
[2024-01-22] MEDS: buPROPion (XL) 150 MG TABLET.XL PO (09:07)
--- NOTE | 2024-01-22 15:34 | CASEMGMT ---
Social Work Precert approved for pt to DC to [facility] today. IDT updated. DC paperwork sent to [facility]. SW spoke with brother and brother will transport shortly. Plan: DC 01/21 to [facility] [employer] [employer]
== END 2024-01-22 04:30 | disposition skilled nursing facility (03) | DRG 57 ==
PROVIDERS: Admitting Provider Internal Medicine; PCP Family Medicine; Visit Provider Internal Medicine
DX: I69.334 Monoplegia of upper limb following cerebral infarction affecting left non-dominant side (principal); H53.462 Homonymous bilateral field defects, left side; G93.89 Other specified disorders of brain; N18.31 Chronic kidney disease, stage 3a; D64.9 Anemia, unspecified; E03.9 Hypothyroidism, unspecified; F34.1 Dysthymic disorder; I12.9 Hypertensive chronic kidney disease with stage 1 through stage 4 chronic kidney disease, or unspecified chronic kidney disease; I69.392 Facial weakness following cerebral infarction; E78.00 Pure hypercholesterolemia, unspecified; I69.319 Unspecified symptoms and signs involving cognitive functions following cerebral infarction; I69.398 Other sequelae of cerebral infarction; I69.320 Aphasia following cerebral infarction; I69.322 Dysarthria following cerebral infarction; Z85.46 Personal history of malignant neoplasm of prostate; Z79.899 Other long term (current) drug therapy; Z79.02 Long term (current) use of antithrombotics/antiplatelets; Z79.82 Long term (current) use of aspirin; Z79.890 Hormone replacement therapy
CPT/HCPCS: 36415; 80048; 80053; 82274; 83735; 84100; 85014; 85018; 85027; 85048; 85652; 86140; 92507; 92523; 97110; 97112; 97116; 97129; 97130; 97162; 97166; 97530; 97535

== ENCOUNTER 2025-02-03 17:57 | Emergency (ER) | payer MEDICARE, MEDICAID, SELFPAY ==
[2025-02-03] VITALS (7 sets, daily range): BP systolic 153–216; BP diastolic 48–91; PULSE 51–88; RESP 14–19; TEMP 36.8; O2SAT 94–99; BMI 25.7
--- NOTE | 2025-02-03 18:17 | EDS_ITS ---
HPI HPI - GI History of Present Illness Chief Complaint: Abd Pain Informant: patient Abdominal Pain/Flank Pain Onset: Days Context: Gradual Onset Timing: Intermittent Quality: Aching Location: RLQ Worsened by: - (Standing and walking) Relieved by: Nothing Nausea/Vomiting/Emesis GI Symptom: Positive for Nausea; Negative for Vomiting Diarrhea/Melena/Hematochezia GI Symptom: Negative for Diarrhea, Melena or Hematochezia Associated Symptoms Associated Symptoms: Negative for Dysuria, Frequency or Hematuria Narrative Narrative: Patient presents with right lower abdominal pain that has been getting worse over the past few days. Patient states that has been intermittent. Patient describes it as aching. Patient states it is worse with walking and standing. Patient admits to some nausea but denies any vomiting. Patient denies any diarrhea, melena, or hematochezia. Patient denies any dysuria, frequency, or hematuria. Patient denies any neck or back pain. [facility] Medical History Chronic renal failure Hypothyroid Lumbosacral radiculitis Arthritis of right hand Prostate CA HLD (hyperlipidemia) Hypertension Depression Stroke/cerebrovascular accident Hypertension Hypothyroidism Hypercholesterolemia Home Medications ?Medication ?Instructions ?Recorded ?Last Taken ?Type acetaminophen 500 mg capsule 500 mg PO BID pain Unknown History aspirin 81 mg chewable tablet 1 tab PO DAILY blood thi nner 12/23/23 12/30/23 History atorvastatin 80 mg tablet 80 mg PO QHS cholesterol 06/0812/29/23 History clopidogrel 75 mg tablet 75 mg PO DAILY blood thinner 12/23/23 12/30/23 History levothyroxine 50 mcg tablet 50 mcg PO DAILY thyroid 12/30/23 History multivitamin 1 tab PO DAILY vitamin 12/2312/29/23 History vit C 250 mg-vit E 90 mg-zinc 40 1 tab PO BID eye heal th 12/23/23 Unknown History mg-copper 1 ye-myarfe-fvvloa capsule (PreserVision AREDS-2) bupropion HCl 150 mg 24 hr tablet, 150 mg PO DAILY #1 TAB 01/21/24 Unknown Rx extended release diclofenac sodium 1 % topical gel 2 g topical BID PRN PRN painful 01/21/24 Unknown Rx (Voltaren Arthritis Pain) joint #100 grams escitalopram oxalate 10 mg tablet 15 mg (1.5 x 10 mg) PO DAILY #1 TAB 01/21/24 Unknown Rx losartan 100 mg tablet (Cozaar) 100 mg PO DAILY #1 TAB 01/21/24 Unknown Rx nifedipine 30 mg tablet,extended 90 mg (3 x 30 mg) PO DAILY #1 TAB 01/21/24 Unknown Rx release 24 hr sennosides 8.6 mg-docusate sodium 2 tab PO BID #1 TAB 01/21/24 Unknown Rx 50 mg tablet (Stool Softener-Stimulant Laxative) cephalexin 500 mg capsule 500 mg PO Q6 #20 CAPSULES Unknown Rx hydrocodone-acetaminophen 5-325mg 1 tab PO Q6H PRN PRN Pain 3 days 02/03/25 Unknown Rx 5mg-325mg #10 TABLETS Allergy/AdvReac Type Severity Reaction Status Date / Time No Known Allergies Allergy Verified 12/23/23 14:24 Family History (Updated 01/01/24 @ 16:[address] Ely Wisdom DO) Father Cancer Mother CVA (cerebral vascular accident) Sister CVA (cerebral vascular accident) Brother Hyperlipidemia Surgical History S/P carotid endarterectomy Social History household members: family Smoking Status: Never smoker ROS ROS ED Constitutional Constitutional ED: Denies chills or fever(s) Eyes Eyes: Denies blurry vision or change in vision ENT ENT ED: Denies rhinorrhea or sore throat Cardiovascular Cardiovascular: Denies chest pain or palpitations Respiratory/Chest Respiratory/Chest: Denies cough or dyspnea Gastrointestinal Gastrointestinal: Reports abdominal pain and nausea; Denies vomiting Genitourinary Genitourinary ED: Denies dysuria or hematuria Musculoskeletal Musculoskeletal: Reports back pain; Denies neck pain Integumentary Denies abscess or rash Neurologic Neurologic: Denies headache(s) or weakness Allergic/Immunologic Allergic/Immunologic ED: Denies mouth swelling or urticaria EXAM Physical Exam Const Vital Signs: 02/03/25 17:58 02/03/25 19:57 02/03/25 20:57 Temperature 98.3 F Temperature Source Temporal Pulse Rate 88 51 L 52 L Respiratory Rate 14 18 16 Blood Pressure 194/91 H 206/73 H Blood Pressure Mean 125 117 Pulse Ox 99 98 98 Oxygen Delivery Method Room Air Room Air Room Air 02/03/25 21:38 02/03/25 22:21 02/03/25 23:03 Temperature Temperature Source Pulse Rate 52 L 55 L 54 L Respiratory Rate 14 18 19 H Blood Pressure 211/67 H 216/72 H 174/54 H Blood Pressure Mean 115 120 94 Pulse Ox 94 96 97 Oxygen Delivery Method Room Air Room Air 02/03/25 23:48 Temperature 98.2 F Temperature Source Pulse Rate 51 L Respiratory Rate 16 Blood Pressure 153/48 H Blood Pressure Mean 83 Pulse Ox 97 Oxygen Delivery Method Positive well nourished and well developed General Appearance ED: well developed and NAD HEENT Reports moist mucous membranes Neck supple and no JVD Resp normal respiratory effort and clear to auscultation bilaterally GI non-distended Palpation: soft and tender RLQ; Negative for guarding or rebound tenderness present Extremity full ROM General Extremety ED: Negative for edema or tenderness General Extremity: Negative for edema Neuro CN's II-XII intact bilaterally, moves all extremities and no sensory deficits noted Sensorium / Orientation: alert Motor Exam: strength 5/5 throughout MDM MDM MDM Narrative Medical decision making narrative: Differential diagnosis includes appendicitis, ureteral calculus, urinary tract infection, inguinal hernia, diverticulitis, gastroenteritis, and mesenteric adenitis. CBC will be obtained to assess for leukocytosis or anemia. Comprehensive metabolic profile will be obtained to assess for hepatic function, renal function, and electrolyte abnormality. Lipase will be obtained to assess for pancreatitis. Urinalysis will be obtained to assess for urinary tract infection and hematuria. CT scan of the abdomen and pelvis will be obtained to assess for appendicitis, bowel obstruction, perforation, and hernia. Lab Data Attestation: I reviewed the patient's lab results. Lab results narrative: CBC was reviewed. There is a mild anemia with hemoglobin of 11.8 and hematocrit 36.2. Comprehensive metabolic profile was reviewed. BUN was slightly elevated at 30. Creatinine was normal at 1.08. Glucose was slightly elevated at 109. The remainder is within normal limits. Lipase was reviewed and was normal at 29. Urinalysis was reviewed. Leukocyte esterase was 25. There are 10-25 white blood cells and 1+ bacteria. There is no evidence of hematuria. Labs: Laboratory Results - last 24 hr 02/03/25 02/03/25 19:42 19:59 WBC 8.8 RBC 3.81 L Hgb 11.8 L Hct 36.2 L MCV 95.0 H MCH 31.0 MCHC 32.6 RDW Std Deviation 42.7 RDW Coeff of Velia 12.3 Plt Count 153 MPV 8.7 Immature Gran % (Auto) 0.500 Neut % (Auto) 69.4 Lymph % (Auto) 20.1 [place] % (Auto) 8.3 Eos % (Auto) 1.4 Baso % (Auto) 0.3 Absolute Neuts (auto) 6.1 Absolute Lymphs (auto) 1.76 Nucleated RBC % 0 Sodium 139 Potassium 4.6 Chloride 106 Carbon Dioxide 23.1 Anion Gap 10 BUN 30 H Creatinine 1.08 Estim Creat Clear Calc 54.45 Est GFR (MDRD) Non-Af 69 BUN/Creatinine Ratio 28.0 H Glucose 109 H Calcium 9.2 Total Bilirubin 0.24 AST 15 ALT 6 Alkaline Phosphatase 62 Total Protein 6.4 Albumin 3.9 Globulin 2.4 Albumin/Globulin Ratio 1.6 Lipase 29 Urine Color Yellow Urine Clarity Clear Urine pH 6.5 Ur Specific [place] 1.015 Urine Protein 15 H Urine Glucose (UA) Normal Urine Ketones Negative Urine Occult Blood Negative Urine Nitrite Negative Urine Bilirubin Negative Urine Urobilinogen Normal Ur Leukocyte Esterase 25 H Urine RBC 0 SEEN Urine WBC 10-25 SEEN Ur Squamous Epith Cells 0-5 SEEN Urine Bacteria 1+ Urine Mucus 0 SEEN Radiography Diagnostic Testing: Clinical Impression(s) from Imaging Studies Abdomen/Pelvis CT 02/03/25 18:26 IMPRESSION: Suspected tiny stone within the distal ureter as described above. However, se verely limited due to streak artifacts from bilateral hip arthroplasties. Mild stool burden within the rectosigmoid colon and extensive sigmoid diverticulosis without evidence of diverticulitis. 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 Reading Location: [facility] CT scan of the abdomen and pelvis was obtained. There is a suspected tiny stone within the right distal ureter however there are streak artifact from the bilateral hip arthroplasties. There is stool in the rectosigmoid colon. There is sigmoid diverticulosis but no evidence of diverticulitis. 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 There is no leaking. There is no evidence of appendicitis. This was interpreted by the radiologist and is also independently reviewed by myself. Treatment and Re-Evaluation :: Patient was given IV fluids. Patient was also given a dose of labetalol. Patient's blood pressure did not improve with this. Patient was given a dose of hydralazine. Patient's blood pressure improved to 174/54. Patient was advised of his findings. Patient was given a prescription for [place]. Patient was also given a prescription for Keflex. Patient was instructed to follow-up with his primary care physician in 5 to 7 days. Patient understood and was agreeable with the plan. All questions were answered. Discharge Plan Triage Chief Complaint: Abd Pain ED Provider: Zuhair Tavarez Dx/Rx/DC Orders Clinical Impression: Abdominal pain, right lower quadrant, Urinary tract infection, Right distal ureteral calculus, Elevated blood pressure reading without diagnosis of hypertension Instructions: ED Bladder Infection, Male (Adult), ED Kidney Stone with Pain Prescriptions: New hydrocodone-acetaminophen 5-325 mg tablet 1 tab PO Q6H PRN PRN (Reason: Pain) 3 Days Qty: 10 0RF cephalexin 500 mg capsule 500 mg PO Q6 Qty: 20 0RF No Action aspirin 81 mg tablet,chewable 1 tab PO DAILY atorvastatin 80 mg tablet 80 mg PO QHS clopidogrel 75 mg tablet 75 mg PO DAILY levothyroxine 50 mcg tablet 50 mcg PO DAILY multivitamin Tablet 1 tab PO DAILY PreserVision AREDS-2 250-90-40-1 mg capsule 1 tab PO BID acetaminophen 500 mg capsule 500 mg PO BID nifedipine 30 mg Tablet Extended Release 24hr 90 mg PO DAILY Qty: 1 0RF sennosides-docusate sodium [Stool Softener-Stimulant Laxat] 8.6-50 mg Tablet 2 tab PO BID Qty: 1 0RF escitalopram oxalate 10 mg Tablet 15 mg PO DAILY Qty: 1 0RF bupropion HCl 150 mg Tablet Extended Release 24 Hr 150 mg PO DAILY Qty: 1 0RF losartan [Cozaar] 100 mg tablet 100 mg PO DAILY Qty: 1 0RF diclofenac sodium [Voltaren Arthritis Pain] 1 % gel 2 g topical BID PRN PRN (Reason: painful joint) Qty: 100 0RF Rx Instructions: apply to painful joints BID Primary Care Provider: Dani Fallon Referrals: Dani Fallon MD [Primary Care Provider] - 5-7 Days Print Language: Tamazight Disposition Disposition: Home, Self Care
--- NOTE | 2025-02-03 18:26 | CT_ITS ---
PROCEDURE: ABDOMEN/PELVIS W IV CONT ONLY 02/03/2025 REASON FOR EXAM: ABDOMINAL PAIN TECHNIQUE: Abdomen CT without and with intravenous contrast. Coronal and Sagittal reconstruction series were provided. PATIENT PREPARATION: Per protocol ORAL CONTRAST TYPE: None. AMOUNT: mL CONTRAST: Not included with this study. One or more dose reduction techniques were used (e.g., Automated exposure control, adjustment of the mA and/or kV according to patient size, use of iterative reconstruction technique. RADIATION DOSE SUMMARY: CTDlvol: 42 mGy DLP: 1110 mGycm COMPARISON: None FINDINGS: Lung bases: Mild dependent atelectasis Liver: Small low attenuating lesion within the hepatic dome, most likely representing benign cysts. Gallbladder: Unremarkable, no radiographic evidence of stones. Spleen: Scattered tiny calcifications, likely sequela of granulomatous disease. Pancreas: Normal size without evidence of mass surrounding inflammation or ductal dilation. Adrenals: Unremarkable Kidneys: Multiple bilateral renal cysts. Suspected tiny stone within the distal right ureter, best seen on series 4 image number 95. However, severely limited evaluation due to streak artifacts from bilateral hip arthroplasties. Bladder: Reproductive Organs: Prior hysterectomy. Adnexal regions are unremarkable. Bowel: Evaluation of the bowel loops are limited due to lack of oral contrast. Stomach is under distended limiting evaluation. Small duodenal diverticulum. No inflammatory changes of the small bowel. Mild stool burden within the rectosigmoid colon. Extensive sigmoid diverticulosis without evidence of diverticulitis. Appendix: Unremarkable Lymph nodes: No lymphadenopathy. Vasculature: Atherosclerotic calcification of the abdominal aorta and branches. 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 Peritoneum / Retroperitoneum: No evidence of free air or free fluid. Bones: Severe degenerative changes of the lumbar spine. Postop changes of the lower lumbar spine with fixation screws transversing L5 vertebral body. CT/Abdomen/Pelvis W IV Cont ONLY IMPRESSION: Suspected tiny stone within the distal ureter as described above. 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 Mild stool burden within the rectosigmoid colon and extensive sigmoid diverticu losis without evidence of diverticulitis. 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 Reading Location: [facility]
[2025-02-03] MEDS: 0.9% Normal Saline (1000mL) 1,000 ML 999 ML IV (18:49)
--- NOTE | 2025-02-03 19:55 | ED.RN ---
Spoke to RN from [facility]. Pt update provided and suggested to call back in two hours once more results are back, questions/concerns answered.
[2025-02-03 20:03] LABS: Mucous, Urine 0 SEEN /hpf (<or=2+)
[2025-02-03 20:10] LABS: Absolute Lymphocyte Count 1.76 X10^3/uL (0.83-4.51); Absolute Neutrophil Count 6.1 X10^3/uL (2.0-7.7); Basophil# 0.03 X10^3/uL; Basophil% 0.3 % (0-1); Eosinophil# 0.12 X10^3/uL; Eosinophils% 1.4 % (0-5); Hematocrit 36.2 % (40-54); Hemoglobin 11.8 g/dL (13.0-16.5); Lymphocyte # 1.76 X10^3/ul (0.83-4.51); Lymphocyte % 20.1 % (19-41); Mean Corp Hgb Conc 32.6 g/dL (32-36); Mean Platelet Vol. 8.7 fl (6.2-12.0); Monocyte# 0.73 X10^3/uL; Monocyte% 8.3 % (0-10); NRBC Flagged by Analyzer 0 % (0-5); Neutrophil # 6.08 X10^3/uL (2.7-7.7); Neutrophil % 69.4 % (47-70); Platelet Count 153 K/mm3 (150-450); RBC Distribution Width CV 12.3 % (11.6-14.6); RBC Distribution Width SD 42.7 fl (35.1-43.9); Red Blood Count 3.81 M/mm3 (4.6-6.2); White Blood Count 8.8 K/mm3 (4.4-11.0)
[2025-02-03 20:10] LABS: Color, Urine Yellow (Yellow); Glucose, Dipstick Normal (Normal); Ketone-Dipstick Negative (Negative); Leukocyte Esterase-Dipstick 25 /ul (Negative); Nitrite-Dipstick Negative (Negative); Occult Blood-Urine Negative /ul (Negative); Protein-Dipstick 15 mg/dl (Negative); Specific Gravity, Urine 1.015 (1.002-1.030); Urine Bilirubin Dipstick Negative (Negative); Urine Clarity Clear (Clear); Urine Urobilinogen Normal (Normal); Urine pH 6.5 (5.0 - 8.0)
[2025-02-03 20:16] LABS: ALB/GLOB Ratio 1.6 RATIO (0.9-2.4); AST(SGOT) 15 U/L (<=37); Alanine Aminotransfer ALT/SGPT 6 U/L (<=46); Albumin, Serum 3.9 g/dL (3.4-4.8); Alkaline Phosphatase 62 U/L (40-129); Anion Gap 10 (5-15); BUN 30 mg/dL (4-19); Calcium,Total 9.2 mg/dL (7.6-11.0); Carbon Dioxide 23.1 mmol/L (21.0-32.0); Chloride 106 mmol/L (98-108); Creatinine, Serum 1.08 mg/dL (0.70-1.20); EST Glomerular Filtration Rate 69 (>60); Estimated Creatinine Clearance 54.45 ml/min (50-250); Globulin 2.4 g/dL (2.2-4.2); Glucose 109 mg/dL (70-99); Lipase 29 U/L (13-75); Potassium 4.6 mmol/L (3.3-5.1); Protein, Total 6.4 g/dL (5.9-8.4); Sodium Level 139 mmol/L (133-145); Total Bilirubin 0.24 mg/dL (0.00-1.30)
[2025-02-03 20:24] LABS: Bacteria 1+ /hpf (None Seen); Red Blood Cells-Urine 0 SEEN /hpf (0-5); Squamous Epithelial Cells - UA 0-5 SEEN /hpf (0-5); White Blood Cells 10-25 SEEN /hpf (0-5)
--- NOTE | 2025-02-03 22:00 | ED.RN ---
Provided update to Bryce MADDEN from [facility], questions/concerns answered.
[2025-02-03] MEDS: hydrALAZINE 20 MG/ML Vial 10 MG IV (22:16)
[2025-02-03] MEDS: HYDROcodone Bitartrate/Apap 5/325 Tablet PO (23:53)
[2025-02-03] MEDS: Cephalexin 500 MG Capsule PO (23:53)
== END 2025-02-04 00:01 | disposition home or self-care (01) ==
PROVIDERS: Emergency Provider Emergency Medicine; PCP Family Medicine; Visit Provider Emergency Medicine
DX: N39.0 Urinary tract infection, site not specified (principal); N20.1 Calculus of ureter; I72.3 Aneurysm of iliac artery; K57.30 Diverticulosis of large intestine without perforation or abscess without bleeding; I12.9 Hypertensive chronic kidney disease with stage 1 through stage 4 chronic kidney disease, or unspecified chronic kidney disease; N18.9 Chronic kidney disease, unspecified; F32.A Depression, unspecified; D64.9 Anemia, unspecified; E03.9 Hypothyroidism, unspecified; E78.00 Pure hypercholesterolemia, unspecified; Z85.46 Personal history of malignant neoplasm of prostate; Z86.73 Personal history of transient ischemic attack (TIA), and cerebral infarction without residual deficits; Z79.82 Long term (current) use of aspirin; Z79.02 Long term (current) use of antithrombotics/antiplatelets; Z79.890 Hormone replacement therapy; Z79.899 Other long term (current) drug therapy
CPT/HCPCS: 74177; 80053; 81001; 83690; 85025; 87077; 87086; 87088; 87186; 96361; 96374; 96375; 99285; Q9967; A4216